=== PATIENT | female | born 1955 | race Caucasian/White ===

== ENCOUNTER 2017-04-24 07:19 | Inpatient (IN) | payer BC ==
[2017-04-24] MEDS ORDERED: NS 0.9% 1000 ML* 2,000 ML IV ONE (07:40)
[2017-04-24] MEDS: Ondansetron INJ* 2 MG/ML VIAL IV SCH ×2 (07:52→11:51)
[2017-04-24 08:16] LABS: Urine Bilirubin Negative (Negative); Urine Glucose 1+(50 mg/dL) (Negative); Urine Nitrite Negative (Negative)
[2017-04-24 08:22] LABS: Albumin 4.1 g/dL (3.2-5.2); BUN/Creatinine Ratio 13.8 (8-20); C Reactive Protein 22.14 mg/L (< 5.00); Calcium 9.4 mg/dL (8.6-10.3); EGFR African American 85.4 (>60); EGFR Non-African American 66.4 (>60); Globulin 3.1 g/dL (2-4); Potassium 3.7 mmol/L (3.5-5.0); Total Bilirubin 0.6 mg/dL (0.2-1.0); Total Protein 7.2 g/dL (6.4-8.9)
[2017-04-24 08:23] LABS: Hematocrit 39 % (35-47); Mean Corpuscular HGB Conc 33 g/dl (31-36); Mean Corpuscular Hemoglobin 33 pg (27-31); Mean Corpuscular Volume 98 fL (80-97); Red Blood Count 3.98 10^6/ul (4.0-5.4); Red Cell Distribution Width 13 % (10.5-15); White Blood Count 9.7 10^3/ul (3.5-10.8)
[2017-04-24] MEDS ORDERED: Ondansetron INJ* 2 MG/ML VIAL IV ONE (08:23)
[2017-04-24 08:24] LABS: Add Diff/Slide Review? Slide Review Added; Comments Flag Yes
[2017-04-24] MEDS ORDERED: Metoclopramide IV* 5 MG/ML 2 ML VIAL IV ONE ×2 (08:52→16:59)
[2017-04-24] MEDS ORDERED: LORazepam INJ* 2 MG/ML 1 ML VIAL IV PUSH ONE (09:42)
[2017-04-24] MEDS ORDERED: PROCHLORPERAZINE INJ 5 MG/ML 2 ML VIAL ONE (09:46)
[2017-04-24] MEDS: PROCHLORPERAZINE INJ 5 MG/ML 2 ML VIAL IV PRN ×2 (09:48→16:06)
--- NOTE | 2017-04-24 11:26 | RAD ---
INDICATION: Nausea, vomiting and diarrhea COMPARISON: There are no prior studies available for comparison. TECHNIQUE: Supine and decubitus views of the abdomen were obtained. FINDINGS: There is a paucity of bowel gas present. The visualized portion of the small bowel and colon appear nondistended. No free intraperitoneal air is seen. IMPRESSION: NO EVIDENCE FOR OBSTRUCTION.
[2017-04-24] MEDS ORDERED: PROCHLORPERAZINE INJ 5 MG/ML 2 ML VIAL IV PRN (12:07)
[2017-04-24] MEDS ORDERED: NS 0.9% 1000 ML* 1,000 ML IV ONE (12:07)
[2017-04-24] MEDS ORDERED: Morphine INJ* 2 MG/ML 1 ML SYRINGE IV PRN (12:37)
--- NOTE | 2017-04-24 14:03 | ED ---
Dora Garcia Auryana, scribed for Phan Chacko MD on 04/24/17 at 0740 . GI/ HPI - HPI Summary HPI Summary: 61 year old female presents with sudden onset of severe nausea, vomiting, and diarrhea starting around midnight last night - 7.5 hours [employer]. Patient reports that last night she had pasta and turkey. She also reports abdominal pain [employer] but denies any now. She denies any fever, chills, chest pain, or any SOB. She denies any significant PMHx. FHx is not significant for DM, HTN, or cardiac disease. SHx is significant for tobacco and alcohol use -daily. - History of Current Complaint Chief Complaint: EDNauseaVomitDiarrh Time Seen by Provider: 04/24/17 07:28 Stated Complaint: VOMITING,DIARRHEA Hx Obtained From: Patient Onset/Duration: Started Hours Ago, Still Present Timing: Constant Severity: Moderate Current Severity: Moderate Pain Intensity: 0 - no abdminal pain now Location of Pain: Diffuse - denies any now Associated Signs and Symptoms: Positive: Nausea, Vomiting, Diarrhea, Abdominal Pain - but none now. Negative: Fever, Chills, Chest Pain - Allergy/Home Medications Allergies/Adverse Reactions: Allergies Allergy/AdvReac Type Severity Reaction Status Date / Time Amoxicillin Allergy Hives Verified 04/24/17 07:28 Home Medications: Home Medications NK [No Home Medications Reported] 04/24/17 [History Confirmed 04/24/17] PMH/Surg Hx/FS Hx/Imm Hx Infectious Disease History: Denies: Traveled Outside the [place] in Last 30 Days - Family History Known Family History: Negative: Cardiac Disease, Hypertension, Diabetes - Social History Lives: With Family - significant other Alcohol Use: Daily Alcohol Amount: beer Hx Substance Use: No Substance Use Type: Reports: None Hx Tobacco Use: Yes Smoking Status (MU): Light Every Day Tobacco Smoker Review of Systems Constitutional: Negative Negative: Fever, Chills Eyes: Negative ENT: Negative Cardiovascular: Negative Negative: Chest Pain Respiratory: Negative Negative: Shortness Of Breath Positive: Abdominal Pain - now resolved, Vomiting, Diarrhea, Nausea Genitourinary: Negative Musculoskeletal: Negative Skin: Negative Neurological: Negative Psychological: Normal All Other Systems Reviewed And Are Negative: Yes Physical Exam - Summary Physical Exam Summary: VITAL SIGNS: Reviewed. GENERAL: Patient is a well-developed and nourished female who is lying comfortable in the stretcher. Patient is not in any acute respiratory distress. HEAD AND FACE: Normocephalic and atraumatic. EYES: PERRLA, EOMI x 2, No injected conjunctiva. EARS: Hearing grossly intact. Ear canals and tympanic membranes are WNL. MOUTH: Oropharynx dry but otherwise within normal limits. NECK: Supple, trachea is midline, no adenopathy, no JVD. CHEST: Symmetric, no tenderness at palpation LUNGS: Clear to auscultation bilaterally. No wheezing or crackles. CVS: RRR, S1 and S2 present, no murmurs or gallops appreciated. ABDOMEN: Soft, non-tender. No signs of distention. Positive bowel sounds. No rebound, no guarding, and no masses palpated. No abdominal bruit or pulsations. EXTREMITIES: FROM in all major joints, no edema, no cyanosis or clubbing. NEURO: Alert and oriented x 3. No acute neurological deficits. Speech is normal. SKIN: Dry and warm Triage Information Reviewed: Yes Vital Signs On Initial Exam: Initial Vitals Temp Pulse Resp BP Pulse Ox 96.8 F 78 18 127/77 100 04/24/17 07:23 04/24/17 07:23 04/24/17 07:23 04/24/17 07:23 04/24/17 07:23 Vital Signs Reviewed: Yes Diagnostics - Vital Signs Vital Signs Temp Pulse Resp BP Pulse Ox 04/24/17 07:23 96.8 F 78 18 127/77 100 - Laboratory Lab Results: Lab Results 04/24/17 04/24/17 04/24/17 Range/Units 07:50 07:50 07:50 WBC 9.7 (3.5-10.8) 10^3/ul RBC 3.98 L (4.0-5.4) 10^6/ul Hgb 13.0 (12.0-16.0) g/dl Hct 39 (35-47) % MCV 98 H (80-97) fL MCH 33 H (27-31) pg MCHC 33 (31-36) g/dl RDW 13 (10.5-15) % Plt Count (150-450) 10^3/ul MPV [employer] Strategist Neut % (Auto) 85.7 H (38-83) % Lymph % (Auto) 9.3 L (25-47) % [place] % (Auto) 4.7 (1-9) % Eos % (Auto) 0 (0-6) % Baso % (Auto) 0.3 (0-2) % Absolute Neuts (auto) 8.3 H (1.5-7.7) 10^3/ul Absolute Lymphs (auto) 0.9 L (1.0-4.8) 10^3/ul Absolute Monos (auto) 0.5 (0-0.8) 10^3/ul Absolute Eos (auto) 0 (0-0.6) 10^3/ul Absolute Basos (auto) 0 (0-0.2) 10^3/ul Absolute Nucleated RBC 0 10^3/ul Nucleated RBC % 0 Sodium 135 (133-145) mmol/L Potassium 3.7 (3.5-5.0) mmol/L Chloride 104 (101-111) mmol/L Carbon Dioxide 21 L (22-32) mmol/L Anion Gap 10 (2-11) mmol/L BUN 12 (6-24) mg/dL Creatinine 0.87 (0.51-0.95) mg/dL Est GFR ( Amer) 85.4 (>60) Est GFR (Non-Af Amer) 66.4 (>60) BUN/Creatinine Ratio 13.8 (8-20) Glucose 184 H (70-100) mg/dL Lactic Acid (0.5-2.0) mmol/L Calcium 9.4 (8.6-10.3) mg/dL Total Bilirubin 0.60 (0.2-1.0) mg/dL AST 18 (13-39) U/L ALT 21 (7-52) U/L Alkaline Phosphatase 81 (34-104) U/L C-Reactive Protein 22.14 H (< 5.00) mg/L Total Protein 7.2 (6.4-8.9) g/dL Albumin 4.1 (3.2-5.2) g/dL Globulin 3.1 (2-4) g/dL Albumin/Globulin Ratio 1.3 (1-3) Amylase 37 (29-103) U/L Lipase 38 (11.0-82.0) U/L Urine Color Yellow Urine Appearance Cloudy Urine pH 7.0 (5-9) Ur Specific [place] 1.017 (1.010-1.030) Urine Protein Negative (Negative) Urine Ketones 1+ H (Negative) Urine Blood Negative (Negative) Urine Nitrate Negative (Negative) Urine Bilirubin Negative (Negative) Urine Urobilinogen Negative (Negative) Ur Leukocyte Esterase Negative (Negative) Urine Glucose 1+(50 mg/dl) H (Negative) 04/24/17 Range/Units 08:10 WBC (3.5-10.8) 10^3/ul RBC (4.0-5.4) 10^6/ul Hgb (12.0-16.0) g/dl Hct (35-47) % MCV (80-97) fL MCH (27-31) pg MCHC (31-36) g/dl RDW (10.5-15) % Plt Count (150-450) 10^3/ul MPV Neut % (Auto) (38-83) % Lymph % (Auto) (25-47) % [place] % (Auto) (1-9) % Eos % (Auto) (0-6) % Baso % (Auto) (0-2) % Absolute Neuts (auto) (1.5-7.7) 10^3/ul Absolute Lymphs (auto) (1.0-4.8) 10^3/ul Absolute Monos (auto) (0-0.8) 10^3/ul Absolute Eos (auto) (0-0.6) 10^3/ul Absolute Basos (auto) (0-0.2) 10^3/ul Absolute Nucleated RBC 10^3/ul Nucleated RBC % Sodium (133-145) mmol/L Potassium (3.5-5.0) mmol/L Chloride (101-111) mmol/L Carbon Dioxide (22-32) mmol/L Anion Gap (2-11) mmol/L BUN (6-24) mg/dL Creatinine (0.51-0.95) mg/dL Est GFR ( Amer) (>60) Est GFR (Non-Af Amer) (>60) BUN/Creatinine Ratio (8-20) Glucose (70-100) mg/dL Lactic Acid 2.1 H* (0.5-2.0) mmol/L Calcium (8.6-10.3) mg/dL Total Bilirubin (0.2-1.0) mg/dL AST (13-39) U/L ALT (7-52) U/L Alkaline Phosphatase (34-104) U/L C-Reactive Protein (< 5.00) mg/L Total Protein (6.4-8.9) g/dL Albumin (3.2-5.2) g/dL Globulin (2-4) g/dL Albumin/Globulin Ratio (1-3) Amylase (29-103) U/L Lipase (11.0-82.0) U/L Urine Color Urine Appearance Urine pH (5-9) Ur Specific [place] (1.010-1.030) Urine Protein (Negative) Urine Ketones (Negative) Urine Blood (Negative) Urine Nitrate (Negative) Urine Bilirubin (Negative) Urine Urobilinogen (Negative) Ur Leukocyte Esterase (Negative) Urine Glucose (Negative) Result Diagrams: 04/24/17 07:50 04/24/17 07:50 Lab Statement: Any lab studies that have been ordered have been reviewed, and results considered in the medical decision making process. - Radiology ABD XR Xray Interpretation: No Acute Changes - NO EVIDENCE FOR OBSTRUCTION Radiology Interpretation Completed By: Radiologist Re-Evaluation - Re-Evaluation First Eval Re-Evaluation Time: 12:06 - DISCUSSED ABDOMINAL XR RESULTS Change: Unchanged - VERY NAUSEATED GIGU Course/Dx - Course Assessment/Plan: 61 year old female presents with sudden onset of severe nausea , vomiting, and diarrhea starting around midnight last night - 7.5 hours [employer]. Patient reports that last night she had pasta and turkey. She also reports abdominal pain [employer]IST but denies any now. She denies any fever, chills, chest pain , or any SOB. She denies any significant PMHx. FHx is not significant for DM, HTN, or cardiac disease. SHx is significant for tobacco and alcohol use -daily. Test results without significant abnormalities except glucose of 184, CRP of 22.1, and lactic acid of 2.1. UA is negative for U.T.I. Abdominal XR shows no evidence for obstruction. In ED course, patient was given 3L IV fluids, 3 doses of Zofran, 10 mg of Reglan and 10 mg of Compazine, and symptoms improved but are still present. Patient is still unable to tolerate anything PO due to the nausea. I did not do an ABD/PEL CT since she did not have any abdominal pain and blood work it is found with out any significant abnormality. I did multiple abdominal exams in the ED and she still does not have any abdominal pain. I discussed the case and findings with Dr. Pearson who accepted the patient for admission. Patient is hemodynamically stable and A&Ox3. - Diagnoses Differential Diagnoses - Female: Constipation, Colitis, Gastroenteritis (Viral) Provider Diagnoses: Nausea & vomiting - Physician Notifications Discussed Care Of Patient With: Marielle Pearson Time Discussed With Above Provider: 12:10 - agrees to admit Discharge - Discharge Plan Condition: Stable Disposition: ADMITTED TO [facility] The documentation as recorded by the Dora carbone Auryana accurately reflects the service I personally performed and the decisions made by , Phan Chacko MD.
[2017-04-24] MEDS: Ondansetron INJ* 2 MG/ML VIAL IV PRN ×2 (14:29→21:01)
[2017-04-24] MEDS: Scopolamine 1.5 mg* PATCH TRANSDERM SCH (15:04)
[2017-04-24] MEDS: Al Hydrox/Mg Hydrox/Simet LIQ* 30 ML UDC PO PRN (17:02)
[2017-04-24] MEDS: LORazepam INJ* 2 MG/ML 1 ML VIAL IV PUSH PRN ×2 (17:20→22:17)
[2017-04-24] MEDS: NS 0.9% 1000 ML* 1,000 ML IV SCH (21:01)
--- NOTE | 2017-04-24 22:48 | HP ---
CC: Sindi Pinto NP from [place] * HISTORY AND PHYSICAL: DATE OF ADMISSION: 04/24/17 PRIMARY CARE PROVIDER: Sindi Pinto from [facility] CHIEF COMPLAINT: Nausea and vomiting. HISTORY OF PRESENT ILLNESS: Florecita Dubose is a 61-year-old female with no specific past medical history who presented to the hospital complaining of nausea and vomiting. The patient stated that last night she started having subumbilical abdominal pain and diarrhea. She had diarrhea overall 3 to 4 times in total. The last bowel movement was at 2 a.m. After that, her abdominal pain resolved and the diarrhea subsided. She started vomiting uncontrollably. She had multiple doses of Zofran in the emergency room and continues to feel nauseated and continues to vomit. She is going to be placed on overnight observation with a diagnosis of intractable nausea and vomiting. PAST MEDICAL HISTORY: History of bilateral nephrectomy. MEDICATIONS: None. ALLERGIES: AMOXICILLIN. FAMILY HISTORY: Positive for mother with Parkinson's and father with bladder cancer. SOCIAL HISTORY: The patient has history of smoking 3 to 5 cigarettes a day and she started when she was a teenager. She drinks approximately 4 beers a day. She denies any drug use. Her surrogate decision maker is her male significant other, James Carrasco. REVIEW OF SYSTEMS: Please see History of Present Illness. In addition, on day of admission, the patient denies any fevers. Denies chest pain, shortness of breath, or chills. She complains still of being nauseated but currently denies abdominal pain apart from the episode that happened last night. Her last bowel movement was at 2 a.m. and it was loose. She stated that she ate deli meat and spaghetti last night. All the remaining systems reviewed with the patient on arrival was negative. PHYSICAL EXAMINATION GENERAL: The patient is a pleasant 61-year-old female who is in no acute distress, alert, awake, and oriented x3. VITAL SIGNS: Blood pressure 125/63, heart rate of 50 and regular, respiratory rate 20, oxygen saturation 97% on room air, temperature of 95.7. HEENT: Head: Atraumatic, normocephalic. Eyes: Pupils are equal, reactive to light and accommodation. Oropharynx clear. Mucosa dry. NECK: Supple. No JVD. No bruits bilaterally. RESPIRATORY: Clear to auscultation bilaterally. CARDIOVASCULAR: Regular rate and rhythm, no murmur. ABDOMEN: Soft and nontender. Bowel sounds are present in all 4 quadrants. EXTREMITIES: There is no edema. Pulses are +2 bilaterally. No clubbing, cyanosis. NEUROLOGIC: Speech clear. Cranial nerves II through XII grossly intact. Motor strength is 5/5 bilaterally. SKIN: On evaluation of the skin, no ecchymotic areas or rashes noted. LABORATORY DATA/DIAGNOSTIC STUDIES: Laboratory data and studies performed in the hospital today included white blood cell count of 9.7, hemoglobin of 13.0, hematocrit of 39, and unfortunately platelets were clumped. Sodium is 135, potassium is 3.7, chloride 104, carbon dioxide 21, BUN 12, creatinine 0.87. Lactic acid 2.1. Liver function tests unremarkable. C- reactive protein is 22. Urinalysis positive for trace ketones. Abdominal x-ray, impression, "no evidence for obstruction." ASSESSMENT AND PLAN: Intractable nausea and vomiting in an otherwise healthy patient. The patient is going to be placed on overnight observation with intravenous fluids. Compazine and Zofran used for as antiemetics. In regards to DVT prophylaxis, the patient is at low risk and ambulation is going to be encouraged. I suspect the cause of the patient's nausea and vomiting is either viral gastroenteritis or food poisoning. Fecal lactoferrin is pending at the time of dictation. TIME SPENT: Approximately 55 minutes was spent on admission of this patient, more than half that time was spent [id number] with the patient doing the interview, physical exam, and counseling. [id number]/[facility] #: [id number] [facility]
[2017-04-25] MEDS: PROCHLORPERAZINE INJ 5 MG/ML 2 ML VIAL IV PRN ×2 (00:50→14:52)
[2017-04-25] MEDS: Ondansetron INJ* 2 MG/ML VIAL IV PRN ×2 (04:18→13:44)
[2017-04-25] MEDS: NS 0.9% 1000 ML* 1,000 ML IV SCH ×3 (05:50→23:53)
[2017-04-25 06:06] LABS: Hematocrit 32 % (35-47); Hemoglobin 10.8 g/dl (12.0-16.0); Mean Corpuscular HGB Conc 34 g/dl (31-36); Mean Corpuscular Hemoglobin 33 pg (27-31); Mean Corpuscular Volume 98 fL (80-97); Mean Platelet Volume 10 um3 (7.4-10.4); Red Blood Count 3.28 10^6/ul (4.0-5.4); Red Cell Distribution Width 13 % (10.5-15); White Blood Count 8.5 10^3/ul (3.5-10.8)
[2017-04-25 06:21] LABS: Calcium 7.9 mg/dL (8.6-10.3); EGFR African American 98.3 (>60); EGFR Non-African American 76.5 (>60); Potassium 3.4 mmol/L (3.5-5.0)
--- NOTE | 2017-04-25 08:42 | RAD ---
INDICATION: Hypoxia. COMPARISON: There are no prior studies available for comparison. TECHNIQUE: Dual-energy PA and lateral views of the chest were obtained. FINDINGS: The heart is within normal limits in size. Mediastinal and hilar contours appear within normal limits. There is a patchy infiltrate present at the right lung base in the right lower lobe. The left lung appears clear. No pleural effusion is seen. IMPRESSION: RIGHT LOWER LOBE INFILTRATE.
[2017-04-25] MEDS: KCL 10 MEQ/50 ML IVPREMIX* 10 MEQ/50 ML BAG IV SCH ×4 (09:21→11:40)
[2017-04-25] MEDS: Clindamycin 600 MG IVPREMIX(* 600 MG/50 ML SDV IV SCH ×2 (09:55→17:09)
--- NOTE | 2017-04-25 13:24 | PN ---
Subjective Date of Service: 04/25/17 Interval History: HOSPITALIST PROGRESS NOTE Patient seen and examined at bedside. She feels better this AM. No further diarrhea, some nausea, but no vomiting so far this AM. Overnight her SO2 dropped and she now requires supplemental O2. Denies chest pain or dyspnea. Sporadic cough. She reports eating past and turkey for dinner on 04/23 around 7:30. Around midnight, started to have diarrhea and then developed recurrent episodes of nausea and vomiting. Symptoms persisted during the day and she decided to come to ED yesterday. Family History: Unchanged from Admission Social History: Unchanged from Admission Past Medical History: Unchanged from Admission Objective Active Medications: Acetaminophen (Tylenol Tab*) 650 mg PO Q4H PRN PRN Reason: FEVER/PAIN Al Hydrox/Mg Hydrox/Simethicone (Maalox Plus*) 30 ml PO Q6H PRN PRN Reason: INDIGESTION Last Admin: 04/24/17 17:02 Dose: 30 ml Sodium Chloride (Ns 0.9% 1000 Ml*) 1,000 mls @ 125 mls/hr IV PER RATE [facility] Last Admin: 04/25/17 05:50 Dose: 125 mls/hr Clindamycin HCl/Dextrose (Cleocin 600 Mg Ivpremix(*) Sdv) 600 mg in 50 mls @ 100 mls/hr IV Q8H [facility] Last Admin: 04/25/17 09:55 Dose: 100 mls/hr Lorazepam (Ativan Inj*) 0.5 mg IV PUSH Q4H PRN PRN Reason: ANXIETY Last Admin: 04/24/17 22:17 Dose: 0.5 mg Morphine Sulfate (Morphine Inj (Syringe)*) 1 mg IV Q4H PRN PRN Reason: PAIN Ondansetron HCl (Zofran Inj*) 4 mg IV Q4H PRN PRN Reason: NAUSEA/VOMITING Last Admin: 04/25/17 04:18 Dose: 4 mg Pharmacy Profile Note (Scopolomine Patch Remove*) 1 note PATCH OFF Q72H [facility] Prochlorperazine Edisylate (Compazine Inj*) 10 mg IV Q6H PRN PRN Reason: NAUSEA/VOMITING Last Admin: 04/25/17 00:50 Dose: 10 mg Scopolamine (Transderm-Scop 1.5 Mg Patch*) 1 patch TRANSDERM Q72H [facility] Last Admin: 04/24/17 15:04 Dose: 1 patch Vital Signs 04/25/17 04/25/17 09:30 11:52 Temperature 98.3 F Pulse Rate 43 Respiratory 16 20 Rate Blood Pressure 124/56 (mmHg) O2 Sat by Pulse 91 Oximetry Oxygen Devices in Use Now: Nasal Cannula - 5 liters Appearance: Pleasant lady lying in bed in NAD. Eyes: No Scleral Icterus Ears/Nose/Mouth/Throat: Mucous Membranes Moist Neck: Trachea Midline Respiratory: Symmetrical Chest Expansion and Respiratory Effort, - - BS+ bilaterally with crackles on right base Cardiovascular: NL Sounds; No Murmurs; No JVD, RRR Abdominal: NL Sounds; No Tenderness; No Distention Extremities: No Edema Neurological: Alert and Oriented x 3, NL Muscle Strength and Tone Lines/Tubes/Other Access: Clean, Dry and Intact Peripheral IV Nutrition: Taking PO's Result Diagrams: 04/25/17 05:27 04/25/17 05:27 Assess/Plan/Problems-Billing Assessment: Mrs. Dubose is a 61yo F with h/o bilateral ovarian cysts surgeries (no h/o renal surgeries), who presented to ED with N/V/D, found to have gastroenteritis vs food poisoning. - Patient Problems (1) Food poisoning Comment: - The timing of her symptoms suggests food poisoning. - GI symptoms are resolving. - Advance diet as tolerated. - Continue IVF. (2) Aspiration pneumonia Comment: - Suspect patient likely aspirated due to recurrent vomiting, new RLL infiltrate, and hypoxia. - Had significant rash with amoxicillin in the past - will start Clindamycin. (3) Acute hypoxemic respiratory failure Comment: - Secondary to aspiration pneumonia. - Continue supplemental O2. (4) DVT prophylaxis Comment: - SQ heparin. (5) Full code status Status and Disposition: Change to inpatient.
[2017-04-25] MEDS: Heparin VIAL(*) 5000 UNITS/ML VIAL (FIVE THOUSAND) SUBCUT SCH ×2 (14:18→22:07)
[2017-04-25] MEDS: Al Hydrox/Mg Hydrox/Simet LIQ* 30 ML UDC PO PRN (15:30)
[2017-04-25] MEDS: LORazepam INJ* 2 MG/ML 1 ML VIAL IV PUSH PRN (22:28)
[2017-04-26] MEDS: Clindamycin 600 MG IVPREMIX(* 600 MG/50 ML SDV IV SCH ×3 (01:22→16:18)
[2017-04-26] MEDS: Acetaminophen TAB* 325 MG PO PRN ×2 (04:27→14:15)
[2017-04-26] MEDS: Heparin VIAL(*) 5000 UNITS/ML VIAL (FIVE THOUSAND) SUBCUT SCH ×3 (06:43→20:42)
[2017-04-26 07:01] LABS: Hematocrit 33 % (35-47); Hemoglobin 11.3 g/dl (12.0-16.0); Mean Corpuscular HGB Conc 34 g/dl (31-36); Mean Corpuscular Hemoglobin 33 pg (27-31); Mean Corpuscular Volume 97 fL (80-97); Mean Platelet Volume 10 um3 (7.4-10.4); Red Cell Distribution Width 13 % (10.5-15); White Blood Count 10.6 10^3/ul (3.5-10.8)
[2017-04-26 07:16] LABS: BUN/Creatinine Ratio 12.8 (8-20); Calcium 7.9 mg/dL (8.6-10.3); EGFR African American 96.9 (>60); EGFR Non-African American 75.3 (>60); Potassium 3.5 mmol/L (3.5-5.0)
[2017-04-26] MEDS ORDERED: DOXYcycline IV* 100 MG in NS 0.9% 250 ML* 250 ML IVPB SCH (09:00)
--- NOTE | 2017-04-26 13:21 | PN ---
Subjective Date of Service: 04/26/17 Interval History: HOSPITALIST PROGRESS NOTE Patient seen and examined at bedside. She feels better today, and despite requiring more oxygen, she does not feels more dyspneic. N/V much improved, tolerated full liquids well. No further diarrhea. Family History: Unchanged from Admission Social History: Unchanged from Admission Past Medical History: Unchanged from Admission Objective Active Medications: Acetaminophen (Tylenol Tab*) 650 mg PO Q4H PRN PRN Reason: FEVER/PAIN Last Admin: 04/26/17 04:27 Dose: 650 mg Al Hydrox/Mg Hydrox/Simethicone (Maalox Plus*) 30 ml PO Q6H PRN PRN Reason: INDIGESTION Last Admin: 04/25/17 15:30 Dose: 30 ml Heparin Sodium (Porcine) (Heparin Vial(*)) 5,000 units SUBCUT Q8HR [facility] Last Admin: 04/26/17 06:43 Dose: 5,000 units Clindamycin HCl/Dextrose (Cleocin 600 Mg Ivpremix(*) Sdv) 600 mg in 50 mls @ 100 mls/hr IV Q8H [facility] Last Admin: 04/26/17 08:06 Dose: 100 mls/hr Levofloxacin/Dextrose (Levaquin 750 Mg Ivpremix(*)) 750 mg in 150 mls @ 100 mls /hr IVPB Q24H [facility] Lorazepam (Ativan Inj*) 0.5 mg IV PUSH Q4H PRN PRN Reason: ANXIETY Last Admin: 04/25/17 22:28 Dose: 0.5 mg Morphine Sulfate (Morphine Inj (Syringe)*) 1 mg IV Q4H PRN PRN Reason: PAIN Pharmacy Profile Note (Scopolomine Patch Remove*) 1 note PATCH OFF Q72H [facility] Prochlorperazine Edisylate (Compazine Inj*) 10 mg IV Q6H PRN PRN Reason: NAUSEA/VOMITING Last Admin: 04/25/17 14:52 Dose: 10 mg Scopolamine (Transderm-Scop 1.5 Mg Patch*) 1 patch TRANSDERM Q72H [facility] Last Admin: 04/24/17 15:04 Dose: 1 patch Vital Signs 04/26/17 04/26/17 04/26/17 08:00 08:12 11:34 Temperature 99.2 F Pulse Rate 63 Respiratory 16 16 Rate Blood Pressure 129/66 (mmHg) O2 Sat by Pulse 92 95 Oximetry Oxygen Devices in Use Now: Nasal Cannula - 7 liters Appearance: Pleasant lady lying in bed in NAD. Eyes: No Scleral Icterus Ears/Nose/Mouth/Throat: Mucous Membranes Moist Neck: Trachea Midline Respiratory: Symmetrical Chest Expansion and Respiratory Effort, - - BS+ bilaterally with bibasilar rales R>L Cardiovascular: RRR - Normal S1 and S2 Abdominal: NL Sounds; No Tenderness; No Distention Extremities: No Edema Neurological: Alert and Oriented x 3, NL Muscle Strength and Tone Lines/Tubes/Other Access: Clean, Dry and Intact Peripheral IV Nutrition: Taking PO's Result Diagrams: 04/26/17 06:33 04/26/17 06:33 Assess/Plan/Problems-Billing Assessment: Mrs. Dubose is a 61yo F with h/o bilateral ovarian cysts surgeries (no h/o renal surgeries), who presented to ED with N/V/D, found to have gastroenteritis vs food poisoning. - Patient Problems (1) Food poisoning Comment: - The timing of her symptoms suggests food poisoning. - GI symptoms resolved. - Advance to regular diet. - D/c IVF. (2) Aspiration pneumonia Comment: - Suspect patient likely aspirated due to recurrent vomiting, new RLL infiltrate, and hypoxia. - Had significant rash with amoxicillin in the past - continue Clindamycin and add Levofloxacin to cover CAP. (3) Acute hypoxemic respiratory failure Comment: - Secondary to aspiration pneumonia. - Continue supplemental O2. (4) DVT prophylaxis Comment: - SQ heparin. (5) Full code status Status and Disposition: Inpatient.
[2017-04-26] MEDS: Levofloxacin 750 MG IVPREMIX(* 750 MG/150 ML BAG IVPB SCH (14:09)
[2017-04-26] MEDS: Al Hydrox/Mg Hydrox/Simet LIQ* 30 ML UDC PO PRN ×2 (16:17→20:28)
[2017-04-27] MEDS: Clindamycin 600 MG IVPREMIX(* 600 MG/50 ML SDV IV SCH ×3 (00:54→16:51)
[2017-04-27] MEDS: Heparin VIAL(*) 5000 UNITS/ML VIAL (FIVE THOUSAND) SUBCUT SCH ×3 (07:36→21:50)
--- NOTE | 2017-04-27 08:25 | RAD ---
INDICATION: Hypoxia COMPARISON: Similar chest x-ray dated April 25, 2017 TECHNIQUE: PA and lateral views of the chest were obtained. FINDINGS: The heart and mediastinum are normal in size and contour. There is density obscuring the right lung base, diaphragm and causing costophrenic angle blunting. To a lesser extent similar costophrenic angle blunting is seen at the left lung base. The pulmonary vasculature is indistinct and mildly engorged. Visualized bones are normal for the patient's age. There is no radiographic evidence of free air beneath the diaphragm IMPRESSION: CHEST X-RAY FINDINGS ARE MOST CONSISTENT WITH PULMONARY EDEMA WITH RIGHT GREATER THAN LEFT BILATERAL PLEURAL EFFUSIONS.
[2017-04-27] MEDS: Al Hydrox/Mg Hydrox/Simet LIQ* 30 ML UDC PO PRN ×2 (09:49→19:04)
[2017-04-27] MEDS ORDERED: Furosemide IV* 10 MG/ML 2 ML VIAL (20 MG) IV ONE (10:12)
--- NOTE | 2017-04-27 12:47 | PN ---
Subjective Date of Service: 04/27/17 Interval History: HOSPITALIST PROGRESS NOTE Patient seen and examined at bedside. She feels well when sitting up, but feels dyspneic when lying flat, and has more cough on that position. Dyspnea with exertion is less intense and she was able to ambulate to the bathroom. Family History: Unchanged from Admission Social History: Unchanged from Admission Past Medical History: Unchanged from Admission Objective Active Medications: Acetaminophen (Tylenol Tab*) 650 mg PO Q4H PRN PRN Reason: FEVER/PAIN Last Admin: 04/26/17 14:15 Dose: 650 mg Al Hydrox/Mg Hydrox/Simethicone (Maalox Plus*) 30 ml PO Q6H PRN PRN Reason: INDIGESTION Last Admin: 04/27/17 09:49 Dose: 30 ml Heparin Sodium (Porcine) (Heparin Vial(*)) 5,000 units SUBCUT Q8HR [facility] Last Admin: 04/27/17 07:36 Dose: Not Given Clindamycin HCl/Dextrose (Cleocin 600 Mg Ivpremix(*) Sdv) 600 mg in 50 mls @ 100 mls/hr IV Q8H [facility] Last Admin: 04/27/17 07:54 Dose: 100 mls/hr Levofloxacin/Dextrose (Levaquin 750 Mg Ivpremix(*)) 750 mg in 150 mls @ 100 mls /hr IVPB Q24H [facility] Last Admin: 04/26/17 14:09 Dose: 100 mls/hr Lorazepam (Ativan Inj*) 0.5 mg IV PUSH Q4H PRN PRN Reason: ANXIETY Last Admin: 04/25/17 22:28 Dose: 0.5 mg Morphine Sulfate (Morphine Inj (Syringe)*) 1 mg IV Q4H PRN PRN Reason: PAIN Pharmacy Profile Note (Scopolomine Patch Remove*) 1 note PATCH OFF Q72H AMBER Prochlorperazine Edisylate (Compazine Inj*) 10 mg IV Q6H PRN PRN Reason: NAUSEA/VOMITING Last Admin: 04/25/17 14:52 Dose: 10 mg Scopolamine (Transderm-Scop 1.5 Mg Patch*) 1 patch TRANSDERM Q72H [facility] Last Admin: 04/24/17 15:04 Dose: 1 patch Vital Signs 04/27/17 04/27/17 04/27/17 08:10 09:18 11:25 Temperature 98.8 F Pulse Rate 49 Respiratory 16 17 Rate Blood Pressure 135/71 (mmHg) O2 Sat by Pulse 92 96 Oximetry Oxygen Devices in Use Now: Nasal Cannula - 6 liters Appearance: Pleasant lady sitting up in bed in NAD. Eyes: No Scleral Icterus Ears/Nose/Mouth/Throat: Mucous Membranes Moist Neck: Trachea Midline Respiratory: Symmetrical Chest Expansion and Respiratory Effort, - - BS+ bilaterally, decreased right base, with bilateral crackles to mid lung mckeon Cardiovascular: NL Sounds; No Murmurs; No JVD, RRR Abdominal: NL Sounds; No Tenderness; No Distention Extremities: No Edema Neurological: Alert and Oriented x 3, NL Muscle Strength and Tone Lines/Tubes/Other Access: Clean, Dry and Intact Peripheral IV Nutrition: Taking PO's Result Diagrams: 04/26/17 06:33 04/26/17 06:33 Assess/Plan/Problems-Billing Assessment: Mrs. Dubose is a 61yo F with h/o bilateral ovarian cysts surgeries (no h/o renal surgeries), who presented to ED with N/V/D, found to have gastroenteritis vs food poisoning. - Patient Problems (1) Food poisoning Comment: - The timing of her symptoms suggests food poisoning. - GI symptoms resolved. - Advance to regular diet. (2) Aspiration pneumonia Comment: - Suspect patient likely aspirated due to recurrent vomiting, new RLL infiltrate, and hypoxia. - Had significant rash with amoxicillin in the past - continue Clindamycin and Levofloxacin. (3) Acute hypoxemic respiratory failure Comment: - Secondary to aspiration pneumonia. - Continue supplemental O2. (4) Fluid overload Comment: - CxR shows vascular congestion. - She received IV hydration on admission and this could be secondary to fluid overload. - Diurese with Furosemide. - Check echo. (5) DVT prophylaxis Comment: - SQ heparin. (6) Full code status Status and Disposition: Inpatient. updated at bedside.
[2017-04-27] MEDS: Scopolamine 1.5 mg* PATCH TRANSDERM SCH (14:35)
[2017-04-27] MEDS: Levofloxacin 750 MG IVPREMIX(* 750 MG/150 ML BAG IVPB SCH (14:52)
[2017-04-27] MEDS ORDERED: Scopolomine PATCH Remove* 1 NOTE MISC PATCH OFF SCH (15:00)
--- NOTE | 2017-04-27 15:51 | ECHO ---
Patient: SAMY ALBA [facility] Rec#: [id number] : 1955 Date: 04/27/2017 Age: 61y Height: 175.26 cm / 69.0 in Weight: 61.23 kg / 135.0 lbs Sex: F BSA: 1.75 Room#: 401 Admit Date#: 04/25/2017 Type: Inpatient Referring: Magda Mark MD Reading: Geovanny Rodriguez MD Hospital Medical [facility] Indication: Shortness of breath BP: 126/71 HR: 45 Rhythm: Bradycardia Findings History: ETOH use, smoker. Technical Comments: The study is technically limited due to poor apical windows. The study is technically limited due to the patient's smoking history. Completed at 1435. Left Ventricle: The left ventricular chamber size is normal. There is no left ventricular hypertrophy. Global left ventricular wall motion and contractility are within normal limits. There is normal left ventricular systolic function. The estimated ejection fraction is 55-60%. Normal left ventricular diastolic filling is observed. Left Atrium: The left atrium is mildly dilated. Right Ventricle: Moderator Band present. The right ventricular cavity size is normal. The right ventricular global systolic function is normal. Right Atrium: The right atrium is mildly dilated. Aortic Valve: The aortic valve is trileaflet. The aortic valve leaflets are mildly thickened. There is a trace of aortic regurgitation. There is no evidence of aortic stenosis. Mitral Valve: There is mitral annular calcification. The mitral valve leaflets are mildly thickened. There is mild mitral regurgitation. There is no evidence of mitral stenosis. Tricuspid Valve: The tricuspid valve leaflets are normal. There is mild tricuspid regurgitation. The right ventricular systolic pressure is estimated at 36 mmHg. There is evidence of mild pulmonary hypertension. There is no tricuspid stenosis. Pulmonic Valve: The pulmonic valve appears normal. There is mild to moderate pulmonic regurgitation. There is no pulmonic stenosis. Pericardium: A trivial pericardial effusion is visualized. There are no signs of significant hemodynamic compromise. A bilateral pleural effusion is present. Aorta: There is no dilatation of the ascending aorta. There is no dilatation of the aortic arch. There is no dilation of the aortic root. Pulmonary Artery: The main pulmonary artery appears normal. Venous: The inferior vena cava is dilated. There is an approximate 50% respiratory change in the inferior vena cava dimension. Conclusions Global left ventricular wall motion and contractility are within normal limits. There is normal left ventricular systolic function. The estimated ejection fraction is 55-60%. Normal left ventricular diastolic filling is observed. There is mild mitral regurgitation. The left atrium is mildly dilated. The right atrium is mildly dilated. There is mild tricuspid regurgitation. There is evidence of mild pulmonary hypertension. There is a trace of aortic regurgitation. There is mild to moderate pulmonic regurgitation. A bilateral pleural effusion is present. No report of prior studies are offered for comparison. Measurements Name Value Normal Range RVIDd (AP) 2D 2.4 cm (0.9 - 2.6) RVDdMajor (2D) 4 cm (2.2 - 4.4) RAd ISD 4CH 5.5 cm (3.4 - 4.9) RA (A4C)W 4.5 cm (2.9 - 4.6) IVSd (2D) 0.7 cm (0.6 - 1) LVPWd (2D) 0.8 cm (0.6 - 1) LVIDd (2D) 4.8 cm (3.6 - 5.4) LVIDs (2D) 3.3 cm - LV FS (2D) 31 % (25 - 45) EF Teichholz (2D) 59 % - Aortic Annulus 1.7 cm (1.4 - 2.6) Ao root diameter (2D) 2.9 cm (2.1 - 3.5) Ascending Ao 2.9 cm (2.1 - 3.4) Aortic arch 3 cm (1.8 - 3.4) LA dimension (AP) 2D 3.6 cm (2.3 - 3.8) LAd ISD 4CH 6.4 cm (2.9 - 5.3) LA ISD 4CH W 4.5 cm (2.5 - 4.5) Name Value Normal Range LA ESV SP 4CH (A/L) 81 ml - LA ESV SP 2CH (A/L) 74 ml - LA ESV BP (A/L) 83 ml - LA ESV BP (A/L) index 47.25 ml/m2 - LA ESV SP 4CH (MOD) 74 ml - LA ESV SP 2CH (MOD) 68 ml - Name Value Normal Range MV E-wave Vmax 1 m/sec - MV deceleration time 301.8 msec - MV A-wave Vmax 0.66 m/sec - MV E:A ratio 1.57 ratio - LV septal e' Vmax 0.09 m/sec - LV lateral e' Vmax 0.13 m/sec - LV E:e' septal ratio 11.11 ratio - LV E:e' lateral ratio 7.69 ratio - Name Value Normal Range AV Vmax 1.9 m/sec - AV VTI 40.6 cm - AV peak gradient 15.15 mmHg - AV mean gradient 6.22 mmHg - LVOT Vmax 1.5 m/sec - LVOT VTI 32.45 cm - LVOT peak gradient 9.08 mmHg - LVOT mean gradient 4.64 mmHg - TE Vmax 1.2 m/sec - Name Value Normal Range TR Vmax 2.3 m/sec - TR peak gradient 21 mmHg - RAP 15 mmHg - RVSP 36 mmHg - IVC diameter 2.1 cm - Name Value Normal Range PV Vmax 1 m/sec - PV peak gradient 4.1 mmHg - MO end-diastolic Vmax 0.95 m/sec -
[2017-04-27] MEDS: Simethicone CHEW TAB* 80 MG PO PRN (21:49)
[2017-04-27] MEDS: LORazepam INJ* 2 MG/ML 1 ML VIAL IV PUSH PRN (22:59)
[2017-04-28] MEDS: Clindamycin 600 MG IVPREMIX(* 600 MG/50 ML SDV IV SCH ×2 (01:40→08:45)
[2017-04-28] MEDS ORDERED: Omeprazole CAP* 20 MG PO SCH (06:00)
[2017-04-28] MEDS: Heparin VIAL(*) 5000 UNITS/ML VIAL (FIVE THOUSAND) SUBCUT SCH (06:16)
[2017-04-28] MEDS: Simethicone CHEW TAB* 80 MG PO PRN (09:43)
[2017-04-28 09:49] VITALS: BP 137/70
--- NOTE | 2017-04-29 02:26 | DS ---
CC: Sindi Pinto NP; Dr. Jovani Patel; Dr. Ger Burciaga; Dr. Simmons. Edwin Moon, [facility], [place], phone #[phone] * DISCHARGE SUMMARY: DATE OF ADMISSION: 04/24/17 DATE OF DISCHARGE: 04/28/17 DISCHARGE DIAGNOSES: 1. Food poisoning. 2. Aspiration pneumonia versus community-acquired pneumonia. 3. Acute hypoxemic respiratory failure. 4. Fluid overload. 5. Mild hypokalemia. SECONDARY DIAGNOSES: 1. Tobacco abuse. 2. History of bilateral ovarian cyst surgery. MEDICATION LIST: 1. Acetaminophen 650 mg p.o. q.6 hours p.r.n. pain or fever. 2. Clindamycin 300 mg p.o. q.8 hours for five more days. 3. Culturelle one capsule p.o. b.i.d. 4. Levaquin 750 mg p.o. daily for five more days. 5. Nicotine inhaler 10 mg inhaled q.2 hours as needed for cravings. 6. Nicotine patch 40 mg topical daily, remove at bedtime. 7. Omeprazole 20 mg p.o. daily at 6 am. 8. Simethicone chewable tablet 80 mg p.o. t.i.d. as needed for indigestion/gas. HOSPITAL COURSE: Ms. Dubose is a 61-year-old lady with a past medical history as stated above that presented to the emergency room with complaints of severe nausea and vomiting. She stated that the night prior to admission she had pasta with turkey and around midnight she woke up with diarrhea and this was followed by multiple episodes of nausea and uncontrollable vomiting. For more details about her presentation, I refer you to her history and physical. The patient was admitted for symptom management and further hydration. In the emergency room, she had abdomen x-rays that showed no evidence for obstruction. The next day, the patient was found to have dyspnea and she desaturated requiring 5 L of supplemental oxygen. A chest x-ray was performed and it showed a right lower lobe infiltrate. The concern was the patient could have aspirated considering her multiple episodes of uncontrollable vomiting, but the infiltrate developed quickly and this could suggest that this was present prior to her admission and may be could even be the source of her nausea and vomiting as the patient could have community-acquired pneumonia with GI symptoms. The patient is allergic to PENICILLINS and states she had a severe rash when she took AMOXICILLIN in the past. For that reason, we decided not to give her penicillins or cephalosporins. She was started on clindamycin to cover for possible aspiration and levofloxacin to cover community-acquired pneumonia. Legionella and pneumococcal antigens were negative. The patient developed fever up to 101.1 while in the hospital and she continued to require supplemental oxygen up to 7 L. A repeat chest x-ray suggested vascular congestion. The impression was the patient likely had fluid overload from the aggressive IV fluid resuscitation she received initially. A transthoracic echocardiogram was performed and showed global left ventricular wall motion and contractility within normal limits, with normal left ventricular systolic function with ejection fraction of 55% to 60%. There is mild mitral regurgitation, mild tricuspid regurgitation, mild pulmonary hypertension, trace of aortic regurgitation, [id number] pulmonic regurgitation. The patient received one dose of furosemide 20 mg IV with significant diuresis and improvement of her respiratory status. Today, she feels much improved and she does not require supplemental oxygen to maintain oxygen saturation greater than 90%. She is afebrile. Her nausea and vomiting have resolved and she was thought to be stable for discharge. The patient was concerned about the possibility of side effects with clindamycin and levofloxacin. We discussed the side effects including but not limited to risk for C. diff with both antibiotics and risk for tendon rupture with levofloxacin, but we also reviewed that the benefits of treating the infection are greater than the risk and that her allergy limits some of the options we could use. She was advised about side effects and educated about what symptoms would prompt her return to the emergency room and to call her primary care provider. The patient is a smoker, and she receives tobacco cessation education. She states that she has been without a cigarette for five days and she thinks she will be able to continue at home. She received prescription for nicotine supplementation to assist on her endeavors. The patient is medically stable to be discharged home today and she will follow up with Dr. Burciaga as outpatient. PHYSICAL EXAMINATION: Vital Signs: Temperature 98.3, heart rate 50, respiratory rate 16, oxygen saturation 96% on room air, blood pressure 137/70. General: The patient is a pleasant lady sitting up in bed in no acute distress. CVS: Normal S1 and S2. Regular rate and rhythm. Chest: Breath sounds present bilaterally with crackles on the right base but no other added sounds. Abdomen is soft. Bowel sounds are present. Extremities: No edema. Neuro: She is alert and oriented x3. Able to move all 4 extremities. DIET: Regular diet. The patient was advised to avoid lactose. ACTIVITY: As tolerated. She was advised to avoid excessive exertion. She was also told that she should follow up with her primary care before she starts running again. DISPOSITION: To home. STATUS WHILE IN THE HOSPITAL: Inpatient. Please keep in mind that this is a summarized version of this patient's hospital stay. If you need more information, please feel free to call me at or please obtain the full medical records. TIME SPENT: Approximately 45 minutes was spent to complete this discharge. [id number]/[facility] #: [id number] [place]
== END 2017-04-28 11:50 | disposition home or self-care (01) | DRG 816 ==
LOC: ED 07:19 → MED 12:11 → OBSVTOIN 04-25 09:23
PROVIDERS: ADMIT Internal Medicine; ATTEND Internal Medicine
DX: T62.8X1A Toxic effect of other specified noxious substances eaten as food, accidental (unintentional), initial encounter (principal); J69.0 Pneumonitis due to inhalation of food and vomit; J96.01 Acute respiratory failure with hypoxia; J18.9 Pneumonia, unspecified organism; F17.210 Nicotine dependence, cigarettes, uncomplicated; E87.70 Fluid overload, unspecified; R11.2 Nausea with vomiting, unspecified; Y92.9 Unspecified place or not applicable; E87.6 Hypokalemia; I27.2 Other secondary pulmonary hypertension; I08.3 Combined rheumatic disorders of mitral, aortic and tricuspid valves; Z88.1 Allergy status to other antibiotic agents; Z72.89 Other problems related to lifestyle; Z80.52 Family history of malignant neoplasm of bladder; Z84.89 Family history of other specified conditions
CPT/HCPCS: 36415; 71020; 74020; 80048; 80053; 81003; 82150; 83605; 83690; 85025; 86140; 87899; 93005; 93306; 94760; 99406; A9270-GY; G0378; J0780; J1644; J1940; J2060; J2405; J3480

== ENCOUNTER 2017-10-11 19:08 | Emergency (ER) | payer BC ==
[2017-10-11 19:23] VITALS: BP 134/89
[2017-10-11 20:36] LABS: ABS Basophils 0 10^3/ul (0-0.2); ABS Eosinophils 0 10^3/ul (0-0.6); ABS Lymphocytes 0.8 10^3/ul (1.0-4.8); ABS Monocytes 0.1 10^3/ul (0-0.8); ABS Neutrophils 6.7 10^3/ul (1.5-7.7); ABS Nucleated RBC 0 10^3/ul; Eosinophil % 0.1 % (0-6); Hematocrit 41 % (35-47); Hemoglobin 14.1 g/dl (12.0-16.0); Lymphocyte % 10.1 % (25-47); Mean Corpuscular HGB Conc 34 g/dl (31-36); Mean Corpuscular Hemoglobin 32 pg (27-31); Mean Corpuscular Volume 92 fL (80-97); Mean Platelet Volume 8 um3 (7.4-10.4); Nucleated Red Blood Cells % 0; Platelet Count 272 10^3/ul (150-450); Red Blood Count 4.46 10^6/ul (4.0-5.4); Red Cell Distribution Width 12 % (10.5-15); White Blood Count 7.6 10^3/ul (3.5-10.8)
[2017-10-11 20:49] LABS: EGFR Non-African American 66.2 (>60)
[2017-10-11] MEDS ORDERED: Metoclopramide IV* 5 MG/ML 2 ML VIAL IV ONE (21:02)
[2017-10-11] MEDS ORDERED: NS 0.9% 1000 ML* 2,000 ML IV ONE (21:02)
[2017-10-11] MEDS ORDERED: LORazepam INJ* 2 MG/ML 1 ML VIAL IV PUSH ONE (21:55)
[2017-10-11] MEDS ORDERED: Ondansetron INJ* 2 MG/ML VIAL IV ONE (21:55)
--- NOTE | 2017-10-11 23:04 | ED ---
GI/ HPI - HPI Summary HPI Summary: 62F presents with vomiting today. It started at 2am this morning. She has had nausea, vomiting, and diarrhea. She admits to generalized abdominal pain. She denies any fever or recent illness. no one else is sick. She did not eat anything different. She states last time she had this she was admitted and developed aspiration pneumonia. She was seen at her primary and given zofran and pheregen. She is not diabetic. She denies any dysuria. She denies any flank pain. - History of Current Complaint Chief Complaint: EDNauseaVomitDiarrh Time Seen by Provider: 10/11/17 21:02 Stated Complaint: VOMITING Pain Intensity: 5 - Additional Pertinent History Primary Care Physician: ANDREW - Allergy/Home Medications Allergies/Adverse Reactions: Allergies Allergy/AdvReac Type Severity Reaction Status Date / Time Amoxicillin Allergy Hives Verified 04/24/17 07:28 PMH/Surg Hx/FS Hx/Imm Hx Endocrine/Hematology History: Denies: Hx Anticoagulant Therapy Cardiovascular History: Denies: Hx Myocardial Infarction Sensory History: Reports: Hx Contacts or Glasses Denies: Hx Hearing Aid Opthamlomology History: Reports: Hx Contacts or Glasses Infectious Disease History: No Infectious Disease History: Denies: Traveled Outside the [place] in Last 30 Days - Family History Known Family History: Negative: Cardiac Disease, Hypertension, Diabetes - Social History Alcohol Use: Occasionally Alcohol Amount: beer Hx Substance Use: No Substance Use Type: Reports: None Hx Tobacco Use: Yes Smoking Status (MU): Light Every Day Tobacco Smoker Review of Systems Negative: Fever Negative: Chest Pain Negative: Shortness Of Breath Positive: Abdominal Pain, Vomiting, Diarrhea, Nausea All Other Systems Reviewed And Are Negative: Yes Physical Exam Triage Information Reviewed: Yes Vital Signs On Initial Exam: Initial Vitals Temp Pulse Resp BP Pulse Ox 98.7 F 81 18 134/89 100 10/11/17 19:19 10/11/17 19:19 10/11/17 19:19 10/11/17 19:19 10/11/17 19:19 Vital Signs Reviewed: Yes Appearance: Positive: Well-Appearing Skin: Positive: Warm, Dry Head/Face: Positive: Normal Head/Face Inspection Eyes: Positive: Normal, EOMI, GASTON, Conjunctiva Clear ENT: Positive: Normal ENT inspection, Pharynx normal, TMs normal Respiratory/Lung Sounds: Positive: Clear to Auscultation, Breath Sounds Present Cardiovascular: Positive: Normal, RRR Abdomen Description: Positive: Nontender, Soft Bowel Sounds: Positive: Present Musculoskeletal: Positive: Normal Neurological: Positive: Normal Psychiatric: Positive: Normal - Babatunde Coma Scale Coma Scale Total: 15 Diagnostics - Vital Signs Vital Signs Temp Pulse Resp BP Pulse Ox 10/11/17 22:24 16 10/11/17 19:19 98.7 F 81 18 134/89 100 - Laboratory Lab Results: Lab Results 10/11/17 10/11/17 Range/Units 20:25 20:25 WBC 7.6 (3.5-10.8) 10^3/ul RBC 4.46 (4.0-5.4) 10^6/ul Hgb 14.1 (12.0-16.0) g/dl Hct 41 (35-47) % MCV 92 (80-97) fL MCH 32 H (27-31) pg MCHC 34 (31-36) g/dl RDW 12 (10.5-15) % Plt Count 272 (150-450) 10^3/ul MPV 8 (7.4-10.4) um3 Neut % (Auto) 87.9 H (38-83) % Lymph % (Auto) 10.1 L (25-47) % Lander % (Auto) 1.8 (1-9) % Eos % (Auto) 0.1 (0-6) % Baso % (Auto) 0.1 (0-2) % Absolute Neuts (auto) 6.7 (1.5-7.7) 10^3/ul Absolute Lymphs (auto) 0.8 L (1.0-4.8) 10^3/ul Absolute Monos (auto) 0.1 (0-0.8) 10^3/ul Absolute Eos (auto) 0 (0-0.6) 10^3/ul Absolute Basos (auto) 0 (0-0.2) 10^3/ul Absolute Nucleated RBC 0 10^3/ul Nucleated RBC % 0 Sodium 135 (133-145) mmol/L Potassium 3.9 (3.5-5.0) mmol/L Chloride 101 (101-111) mmol/L Carbon Dioxide 25 (22-32) mmol/L Anion Gap 9 (2-11) mmol/L BUN 11 (6-24) mg/dL Creatinine 0.87 (0.51-0.95) mg/dL Est GFR ( Amer) 85.1 (>60) Est GFR (Non-Af Amer) 66.2 (>60) BUN/Creatinine Ratio 12.6 (8-20) Glucose 154 H (70-100) mg/dL Calcium 9.4 (8.6-10.3) mg/dL Magnesium 1.8 L (1.9-2.7) mg/dL Total Bilirubin 0.40 (0.2-1.0) mg/dL AST 21 (13-39) U/L ALT 23 (7-52) U/L Alkaline Phosphatase 71 (34-104) U/L C-React Prot High Sens 2.04 mg/L Total Protein 7.5 (6.4-8.9) g/dL Albumin 4.4 (3.2-5.2) g/dL Globulin 3.1 (2-4) g/dL Albumin/Globulin Ratio 1.4 (1-3) Lipase 61 (11.0-82.0) U/L Result Diagrams: 10/11/17 20:25 10/11/17 20:25 Lab Statement: Any lab studies that have been ordered have been reviewed, and results considered in the medical decision making process. Re-Evaluation - Re-Evaluation First Eval Change: Improved Comment: still a little nauseous so will give zofran and ativan. GIGU Course/Dx - Course Course Of Treatment: 62F presents with vomiting today. It started at 2am this morning. She has had nausea, vomiting, and diarrhea. She admits to generalized abdominal pain. She denies any fever or recent illness. no one else is sick. She did not eat anything different. She states last time she had this she was admitted and developed aspiration pneumonia. She was seen at her primary and given zofran and pheregen. She is not diabetic. She denies any dysuria. She denies any flank pain. on exam abdomen nontender. gave fluids, zofran, ativan and reglan and nausea resolved. labs normal. will discharge with zofran which patient has. patient understand and agrees with plan. - Diagnoses Differential Diagnoses - Female: Gastroenteritis (Viral), Gastroenteritis ( Bacterial), Urinary Tract Infection Provider Diagnoses: Vomiting Discharge - Discharge Plan Condition: Good Disposition: HOME Patient Education Materials: Acute Nausea and Vomiting (ED) Referrals: Sarai SANCHEZ,Troy Pineda [Primary Care Provider] - Additional Instructions: Take up to two tablets of zofran every 6 hours for nausea or vomiting Drink small amounts of fluid as tolerated When able to eat follow BRAT diet: Bananas, rice, applesauce, toast Take ibuprofen or Tylenol for pain as needed every 6 hours Follow up with primary within 5 days Return to ED if develop fever that does not respond to Tylenol or ibuprofen, severe abdominal pain, or any new or worsening symptoms
== END 2017-10-11 23:22 | disposition home or self-care (01) ==
LOC: ED 19:08
DX: R11.2 Nausea with vomiting, unspecified (principal); R19.7 Diarrhea, unspecified; R10.84 Generalized abdominal pain; F17.200 Nicotine dependence, unspecified, uncomplicated; Z88.3 Allergy status to other anti-infective agents
CPT/HCPCS: 36415; 80053; 83690; 83735; 85025; 86141; 96361; 96374; 96375; 99283; J2060; J2405; J2765

== ENCOUNTER 2017-10-12 23:52 | Observation (INO) | payer BC ==
[2017-10-13] MEDS ORDERED: Ondansetron INJ* 2 MG/ML VIAL IV ONE (01:40)
[2017-10-13] MEDS ORDERED: NS 0.9% 1000 ML* 1,000 ML IV SCH (01:45)
[2017-10-13 02:20] LABS: ABS Basophils 0 10^3/ul (0-0.2); ABS Eosinophils 0 10^3/ul (0-0.6); ABS Monocytes 0.3 10^3/ul (0-0.8); ABS Neutrophils 6.6 10^3/ul (1.5-7.7); ABS Nucleated RBC 0 10^3/ul; Eosinophil % 0.1 % (0-6); Hematocrit 37 % (35-47); Hemoglobin 12.8 g/dl (12.0-16.0); Lymphocyte % 12.8 % (25-47); Mean Corpuscular HGB Conc 35 g/dl (31-36); Mean Corpuscular Hemoglobin 32 pg (27-31); Mean Corpuscular Volume 93 fL (80-97); Mean Platelet Volume 9 um3 (7.4-10.4); Nucleated Red Blood Cells % 0; Platelet Count 228 10^3/ul (150-450); Red Blood Count 3.96 10^6/ul (4.0-5.4); Red Cell Distribution Width 12 % (10.5-15); White Blood Count 7.9 10^3/ul (3.5-10.8)
[2017-10-13] MEDS ORDERED: Metoclopramide IV* 5 MG/ML 2 ML VIAL IV ONE (02:29)
[2017-10-13 02:38] LABS: EGFR Non-African American 69.9 (>60)
[2017-10-13] MEDS ORDERED: KCL 20 MEQ/100 ML IVPREMIX* 20 MEQ/100 ML BAG IV ONE (02:44)
[2017-10-13] MEDS ORDERED: Magnesium Hydroxide LIQ* 30 ML UDC PO PRN (03:43)
[2017-10-13] MEDS ORDERED: Al Hydrox/Mg Hydrox/Simet LIQ* 30 ML UDC PO PRN (03:43)
[2017-10-13] MEDS ORDERED: Acetaminophen TAB* 325 MG PO PRN (03:43)
[2017-10-13] MEDS ORDERED: Mouth Piece, Nicotine* 1 EACH CARTRIDGE INH PRN ×2 (03:44)
[2017-10-13] MEDS ORDERED: Thiamine IV* 100 MG/ML 2 ML VIAL IM ONE (03:44)
[2017-10-13] MEDS ORDERED: Nicotine Inhaler* 10 MG AMP INH PRN (03:44)
[2017-10-13] MEDS: KCL premix 10MEQ/50 ML x 2 BAGS IV SCH ×2 (03:51→04:49)
[2017-10-13] MEDS: NS 0.9% 1000 ML* 1,000 ML IV SCH ×3 (03:52→19:48)
[2017-10-13] MEDS ORDERED: NS 0.9% w/ 20 Meq KCL 1000 ML* 1,000 ML IV SCH (04:00)
[2017-10-13] MEDS: LORazepam INJ* 2 MG/ML 1 ML VIAL IV PUSH PRN ×3 (05:30→15:54)
[2017-10-13] MEDS: Ondansetron INJ* 2 MG/ML VIAL IV PRN ×3 (05:30→17:09)
[2017-10-13] MEDS: Heparin VIAL(*) 5000 UNITS/ML VIAL (FIVE THOUSAND) SUBCUT SCH ×3 (05:39→20:34)
--- NOTE | 2017-10-13 06:59 | HP ---
CC: Dr. Troy Moon * HISTORY AND PHYSICAL: DATE OF ADMISSION: 10/13/17 TIME OF EVALUATION: 0300 PRIMARY CARE PHYSICIAN: Troy Moon MD CHIEF COMPLAINT: Nausea, vomiting. HISTORY OF PRESENT ILLNESS: This 62-year-old female with an unremarkable past medical history, who presents to the emergency room for the second day for intractable nausea, vomiting. The patient states her symptoms began on the with nausea, vomiting, diarrhea. The diarrhea was mild and has subsided and now her nausea and dry heaving have persisted and gotten worse. She initially saw her primary care physician and was given Zofran and Phenergan. She went to the emergency room on the , was discharged home with antiemetics. Per and patient, she states that her nausea is worse with dry heaving. She denies any abdominal pain. No fevers. She has had chills. No URI symptoms. No chest pain, no shortness of breath, no urinary symptoms. She has been unable to tolerate any p.o. In the emergency room, the patient had labs, imaging. She was given a liter of fluid, antiemetics, and referred to the hospitalist service for further evaluation. PAST MEDICAL HISTORY: 1. History of ovarian cyst resection. 2. History of admission in April 2017 for intractable nausea, vomiting. Hospital course was complicated by aspiration pneumonia. MEDICATIONS: No routine medications. ALLERGIES: AMOXICILLIN, the patient developed hives. FAMILY HISTORY: Mother from Parkinson's. Father from bladder cancer. 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 She lives at home with her , James, who is her healthcare proxy. She does smoke about a pack per week for the last 4 years. She admits to 3 to 4 beers per day. No illicit drug use. Code status is full code. REVIEW OF SYSTEMS: A 14-point review of systems reviewed in the HPI, otherwise negative. PHYSICAL EXAMINATION GENERAL: Some distress with some intermittent dry heaving. at the bedside. VITAL SIGNS: Temp 97.6, pulse rate 67, respiratory rate 16, oxygen saturation 90 % on room air, blood pressure 149/82. HEENT: Head normocephalic. Pupils equal and reactive. Anicteric. Oropharynx , mucous membranes are dry. NECK: Supple. No lymphadenopathy. No nuchal rigidity. RESPIRATORY: Diminished breath sounds. Prolonged inspiration phase. No wheezing, rhonchi, rales. CARDIAC: Regular rate and rhythm. Soft systolic murmur heard throughout. ABDOMEN: Hyperactive bowel sounds. Soft, nontender, nondistended. EXTREMITIES: No clubbing, cyanosis, or edema. +2 DPs. NEUROLOGIC: Alert and oriented x3. No focal neurologic deficits. DIAGNOSTIC STUDIES/LAB DATA: White count 7.9, hemoglobin 12.8, hematocrit 37, platelets 228. Sodium 135, potassium 3.0, chloride 103, bicarb 22, BUN 13, creatinine 0.83, glucose 146. Abdominal x-rays flat plate, wet read, unremarkable. ASSESSMENT: This is a 62-year-old female with an unremarkable past medical history, who presents to the emergency room with intractable nausea, vomiting. 1. Intractable nausea, vomiting. Assessment: The patient with some mild dehydration, though she is not tachycardic, likely protracted gastroenteritis or possibly gastritis. She is an alcohol user. Plan: We will admit for IV hydration, antiemetics. If the patient's symptoms persist or worsen, consider further evaluation. CHRONIC MEDICAL PROBLEMS: 1. The patient with 3 to 4 beers per day. We will place her on the [place] protocol. 2. FEN. We will place the patient on clear liquid diet with IV fluids. 3. DVT prophylaxis. The patient's score is moderate risk. We will place her on heparin subcu t.i.d. 4. Code status. Full code. PATIENT TIME: Greater than 50 minutes spent doing the history and physical, more than half the time spent in direct patient contact. [id number]/[facility] #: [id number] MTD[place]
[2017-10-13] MEDS: PROCHLORPERAZINE INJ 5 MG/ML 2 ML VIAL IV PRN ×3 (07:26→20:40)
--- NOTE | 2017-10-13 08:16 | RAD ---
INDICATION: 2 days of nausea and vomiting COMPARISON: Similar radiograph dated April 24, 2017 TECHNIQUE: Supine and upright views of the abdomen were obtained. FINDINGS: The small bowel and colon appear nondistended. No free intraperitoneal air is seen. No grossly abnormal or pathologic appearing calcifications are noted. Visualized bones are within normal limits for the patient's age. IMPRESSION: Normal abdominal radiograph.
[2017-10-13] MEDS: Folic Acid TAB* 1 MG PO SCH (10:40)
[2017-10-13] MEDS: Thiamine TAB* 100 MG TAB PO SCH (10:40)
[2017-10-13] MEDS: Multivitamins/Minerals TAB PO SCH (10:40)
[2017-10-13] MEDS ORDERED: Trimethobenzamide IM* 100 MG/ML 2 ml VIAL IM PRN (17:12)
[2017-10-13] MEDS ORDERED: Sucralfate SUSP 1 GM/10 ml 10 ML UDC PO ONE (18:00)
[2017-10-13] MEDS ORDERED: Pantoprazole IV* 40 MG IV SCH (18:00)
[2017-10-13] MEDS: KCL 10 MEQ/50 ML IVPREMIX* 10 MEQ/50 ML BAG IV SCH ×3 (18:02→22:13)
[2017-10-13] MEDS ORDERED: Acetaminophen SUPP* 650 MG SUPP PR PRN (20:36)
[2017-10-13] MEDS ORDERED: KCL 20 MEQ/100 ML IVPREMIX* 20 MEQ/100 ML BAG IV SCH (23:00)
--- NOTE | 2017-10-13 23:26 | PN ---
Subjective Date of Service: 10/13/17 Interval History: c/o mild nausea, vomiting worse with moving. Denies chest pain, or shortness of breath. Denies abd pain or diarrhea Family History: Unchanged from Admission Social History: Unchanged from Admission Past Medical History: Unchanged from Admission Objective Active Medications: Acetaminophen (Tylenol Tab*) 650 mg PO Q4H PRN PRN Reason: FEVER/PAIN Last Admin: 10/13/17 21:01 Dose: 650 mg Acetaminophen (Tylenol Supp*) 650 mg SD Q4H PRN PRN Reason: FEVER Al Hydrox/Mg Hydrox/Simethicone (Maalox Plus*) 30 ml PO Q6H PRN PRN Reason: INDIGESTION Device (Nicotine Mouth Piece*) 1 each INH .USE WITH NICOTROL PRN PRN Reason: CRAVING Folic Acid (Folvite Tab*) 1 mg PO DAILY [facility] Last Admin: 10/13/17 10:40 Dose: Not Given Heparin Sodium (Porcine) (Heparin Vial(*)) 5,000 units SUBCUT Q8HR [facility] Last Admin: 10/13/17 20:34 Dose: 5,000 units Sodium Chloride (Ns 0.9% 1000 Ml*) 1,000 mls @ 125 mls/hr IV PER RATE [facility] Last Admin: 10/13/17 19:48 Dose: 125 mls/hr Potassium Chloride (Potassium Chloride 10 Meq/50 Ml Ivpremix*) 10 meq in 50 mls @ 50 mls/hr IV Q1H [facility] Stop: 10/14/17 02:59 Lorazepam (Ativan Inj*) 0.5 mg IV PUSH Q4H PRN PRN Reason: nausea Last Admin: 10/13/17 15:54 Dose: 0.5 mg Magnesium Hydroxide (Milk Of Magnesia Liq*) 30 ml PO Q4H PRN PRN Reason: CONSTIPATION Multivitamins/Minerals (Theragran/Minerals Tab*) 1 tab PO DAILY [facility] Last Admin: 10/13/17 10:40 Dose: Not Given Nicotine (Nicotine Inhaler*) 10 mg INH Q2H PRN PRN Reason: CRAVING Ondansetron HCl (Zofran Inj*) 4 mg IV Q4H PRN PRN Reason: NAUSEA/VOMITING Last Admin: 10/13/17 17:09 Dose: 4 mg Pantoprazole Sodium (Protonix Iv*) 40 mg IV Q24H [facility] Last Admin: 10/13/17 18:02 Dose: 40 mg Prochlorperazine Edisylate (Compazine Inj*) 10 mg IV Q6H PRN PRN Reason: NAUSEA/VOMITING Last Admin: 10/13/17 20:40 Dose: 10 mg Sucralfate (Sucralfate Susp) 1 gm PO [facility] Thiamine HCl (Vitamin B-1 Tab*) 100 mg PO DAILY [facility] Last Admin: 10/13/17 10:40 Dose: Not Given Trimethobenzamide HCl (Tigan Im*) 200 mg IM Q6H PRN PRN Reason: NAUSEA Last Admin: 10/13/17 19:50 Dose: 200 mg Vital Signs - 8 hr 10/13/17 10/13/17 10/13/17 15:54 16:57 17:51 Temperature 100.2 F Pulse Rate 77 Respiratory 18 20 16 Rate Blood Pressure 124/76 (mmHg) O2 Sat by Pulse 96 Oximetry 10/13/17 10/13/17 19:12 21:02 Temperature 99.6 F 99.3 F Pulse Rate 68 68 Respiratory 18 20 Rate Blood Pressure 144/78 120/69 (mmHg) O2 Sat by Pulse 97 96 Oximetry Oxygen Devices in Use Now: None Eyes: No Scleral Icterus, PERRLA Ears/Nose/Mouth/Throat: Clear Oropharnyx, Mucous Membranes Moist Neck: NL Appearance and Movements; NL JVP, Trachea Midline Respiratory: Symmetrical Chest Expansion and Respiratory Effort, Clear to Auscultation Cardiovascular: NL Sounds; No Murmurs; No JVD, RRR, No Edema Abdominal: NL Sounds; No Tenderness; No Distention Extremities: No Edema, No Clubbing, Cyanosis Skin: No Rash or Ulcers Result Diagrams: 10/13/17 01:55 10/13/17 01:55 Assess/Plan/Problems-Billing Assessment: This is 62 y.o female that presented to the emergency room with nausea and vomiting , unrelieved after IV hydration, hypokalemia . - Patient Problems (1) Hypokalemia Current Visit: Yes Status: Acute Code(s): E87.6 - HYPOKALEMIA SNOMED Code( s): 88170230 Comment: Potassium replaced with 40 meq KCL IV Repeat BMP in the AM (2) Nausea Current Visit: Yes Status: Acute Code(s): R11.0 - NAUSEA SNOMED Code(s): 134612471 Comment: suspect this could be related to daily alcohol consumption. Will place on Carafate protonix tigan compazine zofran (3) Vomiting Current Visit: Yes Status: Acute Code(s): R11.10 - VOMITING, UNSPECIFIED SNOMED Code(s): 249613090 Comment: suspect this could be related to daily alcohol consumption; possible gastric irritation Will place on Carafate protonix tigan compazine zofran (4) DVT prophylaxis Current Visit: No Status: Acute Code(s): BRX6449 - SNOMED Code(s): 589325561 Comment: - SQ heparin. (5) Full code status Current Visit: No Status: Acute Code(s): Z78.9 - OTHER SPECIFIED HEALTH STATUS SNOMED Code(s): 920403391 Status and Disposition: Continue medications for nausea and vomiting Will place on protonix and carafate. repeat cbc and BMP in AM
[2017-10-13] MEDS: KCL premix 10MEQ/50 ML x 4 RUNS IV SCH (23:45)
[2017-10-14] MEDS: KCL premix 10MEQ/50 ML x 4 RUNS IV SCH ×3 (02:03→05:23)
[2017-10-14] MEDS: NS 0.9% 1000 ML* 1,000 ML IV SCH (04:39)
[2017-10-14] MEDS: Heparin VIAL(*) 5000 UNITS/ML VIAL (FIVE THOUSAND) SUBCUT SCH (05:23)
[2017-10-14] MEDS: Sucralfate SUSP 1 GM/10 ml 10 ML UDC PO SCH ×2 (07:22→11:45)
[2017-10-14 08:01] LABS: ABS Basophils 0.1 10^3/ul (0-0.2); ABS Eosinophils 0.1 10^3/ul (0-0.6); ABS Lymphocytes 3.1 10^3/ul (1.0-4.8); ABS Monocytes 0.5 10^3/ul (0-0.8); ABS Neutrophils 3.3 10^3/ul (1.5-7.7); ABS Nucleated RBC 0 10^3/ul; Eosinophil % 1.1 % (0-6); Hematocrit 32 % (35-47); Hemoglobin 11.4 g/dl (12.0-16.0); Lymphocyte % 43.3 % (25-47); Mean Corpuscular HGB Conc 35 g/dl (31-36); Mean Corpuscular Hemoglobin 33 pg (27-31); Mean Corpuscular Volume 93 fL (80-97); Mean Platelet Volume 9 um3 (7.4-10.4); Nucleated Red Blood Cells % 0.1; Platelet Count 184 10^3/ul (150-450); Red Blood Count 3.48 10^6/ul (4.0-5.4); Red Cell Distribution Width 12 % (10.5-15)
[2017-10-14 08:32] LABS: EGFR Non-African American 68.9 (>60)
[2017-10-14] MEDS: Multivitamins/Minerals TAB PO SCH (09:08)
[2017-10-14] MEDS: Folic Acid TAB* 1 MG PO SCH (09:08)
[2017-10-14] MEDS: Thiamine TAB* 100 MG TAB PO SCH (09:09)
[2017-10-14 11:16] VITALS: BP 117/68
--- NOTE | 2017-10-14 13:09 | PN ---
Subjective Date of Service: 10/14/17 Interval History: Patient was examined at the bedside. Pt awake and alert sitting in the bed. Denies N/V/D. Denies chest pain, abd pain or shortness of breath. States that she feels much better today. Family History: Unchanged from Admission Social History: Unchanged from Admission Past Medical History: Unchanged from Admission Objective Vital Signs - 8 hr 10/14/17 10/14/17 10/14/17 05:53 06:46 07:15 Temperature 97.5 F 98.2 F Pulse Rate 53 52 Respiratory 16 16 12 Rate Blood Pressure 98/62 109/59 (mmHg) O2 Sat by Pulse 98 98 Oximetry 10/14/17 10/14/17 10/14/17 09:30 09:32 11:11 Temperature 98.2 F 98.3 F Pulse Rate 59 53 Respiratory 16 16 16 Rate Blood Pressure 103/70 117/68 (mmHg) O2 Sat by Pulse 97 98 Oximetry Oxygen Devices in Use Now: None Appearance: alert, awake, skin color is pink, appears comfortable Eyes: No Scleral Icterus Ears/Nose/Mouth/Throat: NL Teeth, Lips, Gums, Clear Oropharnyx, Mucous Membranes Moist Neck: NL Appearance and Movements; NL JVP, Trachea Midline Respiratory: Symmetrical Chest Expansion and Respiratory Effort, Clear to Auscultation Cardiovascular: NL Sounds; No Murmurs; No JVD, RRR, No Edema Abdominal: NL Sounds; No Tenderness; No Distention Extremities: No Edema, No Clubbing, Cyanosis Skin: No Rash or Ulcers Neurological: Alert and Oriented x 3, NL Sensation, NL Gait, NL Muscle Strength and Tone Nutrition: Taking PO's Result Diagrams: 10/14/17 07:47 10/14/17 07:47 Assess/Plan/Problems-Billing Assessment: This is 62 y.o female that presented to the emergency room with nausea and vomiting , unrelieved after IV hydration, hypokalemia . - Patient Problems (1) Hypokalemia Status: Acute Code(s): E87.6 - HYPOKALEMIA SNOMED Code(s): 17270320 Comment: Potassium replaced with 40 meq KCL IV Repeat BMP in the AM- Potassium 4.0 (2) Nausea Status: Acute Code(s): R11.0 - NAUSEA SNOMED Code(s): 268331933 Comment: suspect this could be related to daily alcohol consumption. Will place on Carafate protonix tigan compazine zofran (3) Vomiting Status: Acute Code(s): R11.10 - VOMITING, UNSPECIFIED SNOMED Code(s): 325074532 Comment: suspect this could be related to daily alcohol consumption; possible gastric irritation Will place on Carafate protonix tigan compazine zofran (4) DVT prophylaxis Status: Acute Code(s): FEH9415 - SNOMED Code(s): 763758615 Comment: - SQ heparin. (5) Full code status Status: Acute Code(s): Z78.9 - OTHER SPECIFIED HEALTH STATUS SNOMED Code(s) : 546634193 Status and Disposition: Continue medications for nausea and vomiting Will place on protonix and carafate. repeat cbc and BMP in AM- stable Feeling much better no nausea or vomiting. Will discharge home.
--- NOTE | 2017-10-17 13:38 | DS ---
DISCHARGE SUMMARY: DATE OF ADMISSION: 10/13/17 DATE OF DISCHARGE: 10/14/17 ATTENDING PHYSICIAN WHILE IN THE HOSPITAL: Dr. Yoly Chavez * (dictated by Yadira Vick, YASMIN). PRIMARY CARE PROVIDER: Dr. Troy Moon. PRIMARY DIAGNOSES: 1. Nausea. 2. Vomiting. SECONDARY DIAGNOSES: She had an admission in April 2017 for intractable nausea and vomiting and aspiration pneumonia. STUDIES WHILE IN THE HOSPITAL: She had an abdominal x-ray. Impression was normal abdominal x-ray. DISCHARGE MEDICATIONS: New home medications are: 1. Zofran 4 mg p.o. q.8 hours as needed for nausea and vomiting. 2. Protonix 40 mg p.o. daily. 3. Sucralfate 1 g p.o. with meals. 4. She can take Tylenol 650 mg every 6 hours as needed for pain. There is no continued home meds. HISTORY OF PRESENT ILLNESS AND HOSPITAL COURSE: Ms. Dubose is 62-year-old female with unremarkable past medical history, who presented to the emergency room for the second day with intractable nausea and vomiting. The patient states that her symptoms began on 10/10/17 with nausea and vomiting and diarrhea. The diarrhea was mild and has subsided and now her nausea is dry heaving that has persisted and gotten worse. She initially saw her primary care provider and was given Zofran and Phenergan. She went to the emergency room on 10/11/17 and was discharged with antiemetics. Per the and the patient, she states her that nausea is worse with dry heaving. She denies any abdominal pain. No fevers, no chills. She states that she has had some chills. Denies any URI symptoms. No chest pain or shortness of breath. No urinary symptoms. She has been unable to tolerate any p.o. in the emergency room. LABORATORY DATA: While in the emergency room, she was given a liter of fluid, some antiemetics, and referred to the hospitalist team for further evaluation. She did have routine lab work while in the emergency room. CBC: RBCs of 3.96, hemoglobin was 12.8, hematocrit was 37, MCH was 32, neutrophils were 83.4, and lymphs were 12.8. Repeat lab work on 10/14/17 showed RBCs of 3.48, hemoglobin of 11.4, hematocrit of 32, MCH was 33, neutrophils were 47.5, and lymphs were 43.3, WBCs were 7.0. On 10/13/17, her initial BMP showed a sodium 135, potassium of 3.0, chloride of 103, carbon dioxide of 22, BUN of 13, creatinine of 0.83, her glucose was 146, calcium was 8.5, and magnesium level was 1.9. Repeat lab work on 10/14/17 showed a sodium of 137, potassium 4.1, chloride of 108, glucose of 101, calcium 8.4, and magnesium of 2.1. On evaluation of 10/14/17, she was feeling better. She says that her nausea has subsided. She is able to tolerate p.o. fluids. She is feeling much better. My plan is to discharge her home today. During her hospitalization, she did receive some potassium supplementation for her low potassium. Ms. Dubose will be discharged back home today. Vital signs are as follows: Temperature was 98.3, heart rate was 53, respirations 16, O2 saturation was 98% on room air, blood pressure 117/68. DISCHARGE PLAN: Ms. Dubose will be discharged back home with her . Activity as tolerated. She can resume a bland diet. I advised her to stay away from spicy or acidic foods for the next week. She should follow up with her primary care provider in 4 to 7 days. She will be discharged with prescription for Zofran 4 mg p.o. q.8 hours as needed for nausea and vomiting. I will give her some Protonix 40 mg p.o. daily and sucralfate 1 g p.o. with meals for 7 days. The patient was instructed to return to the emergency room with any increased abdominal pain or unable to keep p.o. fluids down. This is the summary of her medical stay. For further details, see the entire medical record. TIME SPENT: Time spent on this discharge was approximately 45 minutes. Greater than half that time was spent with the patient discussing discharge plans and implementing the instructions. CONDITION ON DISCHARGE: Stable. YADIRA MORGANNEY, BANKER MASON [id number]/[facility] #: [id number] [facility] HOSPITALDaren
== END 2017-10-14 12:30 | disposition home or self-care (01) ==
LOC: ED 23:52 → MERGE 10-13 03:43 → MED 10-13 03:43
PROVIDERS: ADMIT Pediatrics; ATTEND Nurse Practitioner
DX: R11.2 Nausea with vomiting, unspecified (principal); F17.210 Nicotine dependence, cigarettes, uncomplicated; E87.6 Hypokalemia
CPT/HCPCS: 36415; 74019; 80048; 80053; 83690; 83735; 85025; 96361; 96372; 96375; 96376; 99284; A9270-GY; G0378; J0780; J1644; J2060; J2405; J2765; J3250; J3411; J3480

== ENCOUNTER 2018-02-10 21:27 | Observation (INO) | payer BC ==
[2018-02-10] MEDS ORDERED: Metoclopramide IV* 5 MG/ML 2 ML VIAL ONE (21:45)
[2018-02-10] MEDS ORDERED: Metoclopramide IV* 5 MG/ML 2 ML VIAL IV ONE (21:45)
[2018-02-10] MEDS ORDERED: NS 0.9% 1000 ML* 1,000 ML IV ONE (21:45)
[2018-02-10] MEDS ORDERED: Morphine VIAL* 4 MG/ML VIAL (1 ml vial) IV ONE ×2 (22:05→22:07)
[2018-02-10 22:23] LABS: ABS Basophils 0 10^3/ul (0-0.2); ABS Eosinophils 0.2 10^3/ul (0-0.6); ABS Lymphocytes 1.4 10^3/ul (1.0-4.8); ABS Monocytes 0.4 10^3/ul (0-0.8); ABS Nucleated RBC 0 10^3/ul; Eosinophil % 3.4 % (0-6); Hematocrit 38 % (35-47); Hemoglobin 13.3 g/dl (12.0-16.0); Lymphocyte % 23.6 % (25-47); Mean Corpuscular HGB Conc 35 g/dl (31-36); Mean Corpuscular Hemoglobin 33 pg (27-31); Mean Corpuscular Volume 93 fL (80-97); Mean Platelet Volume 9.1 um3 (7.4-10.4); Nucleated Red Blood Cells % 0.1; Platelet Count 258 10^3/ul (150-450); Red Cell Distribution Width 13 % (10.5-15)
[2018-02-10] MEDS: Pantoprazole IV* 40 MG IV ONE (22:24)
[2018-02-10 22:39] LABS: EGFR Non-African American 71.9 (>60)
[2018-02-10] MEDS ORDERED: Iohexol 300* (CONTRAST) 10 ML SDV IV ONE (22:53)
[2018-02-11] MEDS ORDERED: Trimethobenzamide IM* 100 MG/ML 2 ml VIAL IM ONE (00:19)
[2018-02-11] MEDS ORDERED: Ondansetron INJ* 2 MG/ML VIAL IV ONE (01:18)
[2018-02-11] MEDS ORDERED: Ondansetron INJ* 2 MG/ML VIAL IV PRN (02:35)
[2018-02-11] MEDS ORDERED: Morphine VIAL* 4 MG/ML VIAL (1 ml vial) IV PRN (02:35)
[2018-02-11] MEDS ORDERED: PROCHLORPERAZINE INJ 5 MG/ML 2 ML VIAL IV PRN (02:35)
[2018-02-11] MEDS ORDERED: LORazepam INJ* 2 MG/ML 1 ML VIAL IV PUSH PRN (03:57)
[2018-02-11] MEDS ORDERED: Scopolamine 1.5 mg* PATCH TRANSDERM SCH (04:00)
[2018-02-11] MEDS: NS 0.9% 1000 ML* 1,000 ML IV SCH ×2 (04:20→14:31)
[2018-02-11] MEDS: Ciprofloxacin 400MG IVPREMIX(* 400 MG/200 ML BAG IVPB SCH ×2 (04:20→14:31)
[2018-02-11 04:27] LABS: INR 0.98 (0.77-1.02)
[2018-02-11 04:49] LABS: Urine Appearance Clear; Urine Blood Negative (Negative); Urine Color Yellow; Urine Ketones 2+ (Negative); Urine Protein Negative (Negative); Urine Specific Gravity 1.059 (1.010-1.030); Urine Urobilinogen Negative (Negative)
[2018-02-11] MEDS: Heparin VIAL(*) 5000 UNITS/ML VIAL (FIVE THOUSAND) SUBCUT SCH ×3 (04:55→21:43)
[2018-02-11] MEDS: metroNIDAZOLE IV 500 MG/100ML* 500 MG/100 ML BAG IVPB SCH ×2 (05:31→11:30)
--- NOTE | 2018-02-11 05:50 | HP ---
CC: Dr. Troy Moon * HISTORY AND PHYSICAL: DATE OF ADMISSION: PRIMARY CARE PROVIDER: Dr. Troy Moon, [place], [place] ATTENDING PHYSICIAN WHILE IN THE HOSPITAL: Dr. Jose Luis Schmidt * (report dictated by Renny Aguiar NP) CHIEF COMPLAINT: 1. Nausea and vomiting. 2. Left lower quadrant abdominal pain. HISTORY OF PRESENT ILLNESS: Ms. Dubose is a 62-year-old female patient who has had 2 previous episodes of intractable nausea and vomiting of unclear etiology. She comes in today. She also carries a history of ovarian cyst but otherwise healthy. She comes in today because yesterday around midnight she started having a left lower quadrant abdominal discomfort that has just got progressively worse throughout the day today and throughout the evening and then around 6 o'clock, she started having another episodes where she just started having nausea and vomiting. She could not keep anything down, to try to eat or drink anything. The discomfort was worse, the vomiting was worse. She denied having any diarrhea. She denied having any coffee-ground emesis. She denied having any melena or tarry stools. She states that the pain mostly is a sharp stabbing pain in the left lower quadrant. There has been chills. There has been no documented fever. She denies any significant weight changes. She states she has never had a colonoscopy or any endoscopy procedures before. She denied any chest pain or shortness of breath but she was concerned because she just could not keep anything down. She only had a cup of coffee today and a soda for fluid intake. She came into the emergency department today. She was evaluated. CT imaging, there was concern for colitis and diverticulitis in the sigmoid colon. There was concern because she was given several rounds of antiemetics that was no avail and we were asked to evaluate for admission. PAST MEDICAL HISTORY: Significant for: 1. Ovarian cyst. 2. History of intractable nausea and vomiting, unclear etiology. PAST SURGICAL HISTORY: She has had ovarian cyst removed. MEDICATIONS: Home medications denied. She said she does not take any meds that she was discharged on back in October. ALLERGIES: Her allergies to medications include AMOXICILLIN and CLINDAMYCIN. FAMILY HISTORY: Her mother had history of Parkinson's. Father had history of bladder cancer. SOCIAL HISTORY: She is smoking about 1 pack a week. She does drink about 3 to 4 beers a night. Surrogate decision maker is her partner, James. REVIEW OF SYSTEMS: There is documented fever. She denies having any significant weight change. There is no double vision. She denies having any ear discharge. There is no rhinorrhea. There is no sore throat. No thyroid enlargement. She denied having any chest pain. There is no orthopnea. There is no nocturnal dyspnea. She does admit to having left lower quadrant abdominal pain. She does admit nausea and vomiting. No diarrhea, no dysuria. No frequency, no seizure. No loss of consciousness, no pruritus and no skin ulcerations. Review of 14 systems was completed, all others negative. PHYSICAL EXAMINATION GENERAL: At this time, Ms. Dubose is a 62-year-old female patient. She is sitting in the ED stretcher. She appears to be well nourished, well developed. She does not appear to be in any acute distress. VITAL SIGNS: Blood pressure 141/89, pulse 71, respirations 17, O2 sat of 100%, temperature 98.7. HEENT: Head: Atraumatic and normocephalic. Eyes: EOMs are intact. Sclerae anicteric and not pale. Throat: Oral mucosa appears to be moist. No oropharyngeal erythema. NECK: Supple. LUNGS: Clear to auscultation bilaterally. No wheezes, rales, or rhonchi. HEART: Sounds S1, S2. Regular rate and rhythm. No murmurs, rubs, or gallops. ABDOMEN: Soft. It was flat, nondistended. Bowel sounds were present. There is tenderness in the left lower quadrant. EXTREMITIES: Pulses were 2+ throughout. She had no peripheral edema. She is moving all 4 extremities with 5/5 strength. NEUROLOGIC: The patient is awake. She is alert. She is oriented x3. Tongue midline. Fibrous Plasterer were equal. There are no gross focal deficits. SKIN: Grossly intact. DIAGNOSTIC STUDIES/LABORATORY DATA: WBC of 6.0, RBC of 4.10, hemoglobin of 13.0, hematocrit of 38, platelet count of 258. Sodium was 136, potassium was 3.5, chloride 102, bicarb 21, BUN 12, creatinine 0.81, glucose 128. Lactate 1.8 , calcium 9.3. Total bili 0.6, AST 24, ALT 21, alk phos 71. Troponin 0. CRP 2.08, albumin 4.4. Lipase 301. She did have an EKG obtained today here in the emergency department, which revealed normal sinus rhythm with a rate of 62. No ST elevations or T-wave inversions are noted. She had an EKG from 2017, appears to be similar. The rate is faster now. She had abdominal pelvis CT obtained today in the ER and this is an overnight read, impression: Sigmoid colitis. Old medical records were reviewed. ASSESSMENT AND PLAN: Ms. Dubose is a 62-year-old female patient coming into the emergency department today with complaints of left lower quadrant abdominal discomfort with associated nausea and vomiting, found to have colitis. We were asked to evaluate for admission. Patient will be admitted under observation status for: 1. Colitis. At this point, I will go ahead and put the patient on Cipro Flagyl. I will make the patient n.p.o. Continue with pain control in the form of morphine and will continue to follow her. 2. Intractable nausea, vomiting. Again, the etiology of this is unclear. I think because this her third episode within a year, we probably should get GI involved to help us with any further recommendations and she is going to need a colonoscopy. She has never had a screening one. She may even need an EGD at some point, but it would not be of value to get. I will probably get GI involving and touch base with them in the morning. I am going to put her on Zofran, scopolamine patch, and Compazine for the nausea, make her n.p.o., hydrate her. We will follow. 3. Elevated lipase. This is probably secondary to the nausea and vomiting. She is not really having any epigastric pain and she is not tender near the pancreas and there was no reports or information on CT imaging but I will go ahead and make her n.p.o., hydrate her, repeat the lipase in the morning to make sure is coming down. We will follow. 4. DVT prophylaxis: I will go ahead and place her on heparin subcu. 5. Code status: Full code. 6. Fluids, electrolytes, and nutrition: Again n.p.o. I did order normal saline at 125 an hour. TIME SPENT: On the admission was approximately 60 minutes, greater than half the time was spent [id number] with the patient obtaining my history and physical; other half time was spent going over the plan of care with the patient and implementing plan of care. I discussed the plan of care with my attending, Dr. Schmidt, he is in agreement. RENNY AGUIAR NP [id number]/[facility] #: [id number] MTDD
[2018-02-11 05:53] LABS: ABS Basophils 0 10^3/ul (0-0.2); ABS Eosinophils 0 10^3/ul (0-0.6); ABS Lymphocytes 0.5 10^3/ul (1.0-4.8); ABS Monocytes 0.1 10^3/ul (0-0.8); ABS Neutrophils 4.8 10^3/ul (1.5-7.7); ABS Nucleated RBC 0 10^3/ul; Eosinophil % 0 % (0-6); Hematocrit 35 % (35-47); Hemoglobin 12.2 g/dl (12.0-16.0); Lymphocyte % 9.2 % (25-47); Mean Corpuscular HGB Conc 35 g/dl (31-36); Mean Corpuscular Hemoglobin 33 pg (27-31); Mean Corpuscular Volume 93 fL (80-97); Mean Platelet Volume 8.9 um3 (7.4-10.4); Nucleated Red Blood Cells % 0; Platelet Count 240 10^3/ul (150-450); Red Blood Count 3.72 10^6/ul (4.0-5.4); Red Cell Distribution Width 12 % (10.5-15); White Blood Count 5.4 10^3/ul (3.5-10.8)
[2018-02-11 06:09] LABS: EGFR Non-African American 86.5 (>60)
--- NOTE | 2018-02-11 06:34 | ED ---
Cheryl Garcia Rebecca, scribed for Jovan Bingham MD on 02/10/18 at 2157 . Abdominal Pain/Female - HPI Summary HPI Summary: Pt is a 62 y/o F who presents to ED c/o abdominal pain. Pain began yesterday and is located in the LUQ. Currently, pain is in the LUQ, though previously it was in the umbilical region, and is moderate, ranked 7/10. 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 Additionally c/o N/V. Denies CP, SOB. Last BM 2 hours ago and she is not passing gas. Prior similar episode with N/V that required hospitalized, though she then did not have any pain, and never had a Dx. SHx daily EtOH intake. No PMHx SBO and pancreatitis. - History of Current Complaint Chief Complaint: EDAbdPain Stated Complaint: ABD PAIN/VOMITING Time Seen by Provider: 02/10/18 21:44 Hx Obtained From: Patient Onset/Duration: Lasting Days - Since yesterday, Still Present Severity Currently: Moderate Pain Intensity: 7 Pain Scale Used: 0-10 Numeric Location: Discrete At: LUQ Associated Signs and Symptoms: Positive: Nausea, Vomiting. Negative: Chest Pain Allergies/Adverse Reactions: Allergies Allergy/AdvReac Type Severity Reaction Status Date / Time amoxicillin Allergy Rash And Verified 02/10/18 21:32 Itching clindamycin Allergy Nausea Verified 02/10/18 21:33 Home Medications: Home Medications NK [No Home Medications Reported] 02/10/18 [History Confirmed 02/10/18] PMH/Surg Hx/FS Hx/Imm Hx Endocrine/Hematology History: Denies: Hx Anticoagulant Therapy, Hx Diabetes Cardiovascular History: Denies: Hx Hypertension, Hx Myocardial Infarction Sensory History: Reports: Hx Contacts or Glasses Denies: Hx Hearing Aid Opthamlomology History: Reports: Hx Contacts or Glasses Infectious Disease History: No Infectious Disease History: Denies: Traveled Outside the [place] in Last 30 Days - Family History Known Family History: Negative: Cardiac Disease, Hypertension, Diabetes - Social History Alcohol Use: Occasionally Alcohol Amount: 3 beers Hx Substance Use: No Substance Use Type: Reports: None Hx Tobacco Use: Yes Smoking Status (MU): Light Every Day Tobacco Smoker Review of Systems Negative: Chest Pain Negative: Shortness Of Breath Positive: Abdominal Pain, Vomiting, Nausea All Other Systems Reviewed And Are Negative: Yes Physical Exam - Summary Physical Exam Summary: GENERAL: ~Patient is a well developed and nourished F who is lying comfortable in the stretcher. ~Patient is not in any acute respiratory distress. HEAD AND FACE: Normocephalic EYES: PERRLA, EOMI x 2. EARS: Hearing grossly intact. MOUTH: Oropharynx within normal limits. NECK: Supple, trachea is midline, no adenopathy, no JVD, no carotid bruit. CHEST: Symmetric, no tenderness at palpation LUNGS: Clear to auscultation bilaterally. No wheezing or crackles. CVS: Regular rate and rhythm, S1 and S2 present, no murmurs or gallops appreciated. ABDOMEN: Soft, tender in the epigastric and LUQ region. Bowel sounds are normal. No abdominal abnormal pulsations. EXTREMITIES: Full ROM in all major joints, no edema, no cyanosis or clubbing. NEURO: Alert and oriented x 3. No acute neurological deficits. Speech is normal and follows commands. SKIN: Dry and warm Triage Information Reviewed: Yes Vital Signs On Initial Exam: Initial Vitals Temp Pulse Resp BP Pulse Ox 98.7 F 68 16 133/81 99 02/10/18 21:31 02/10/18 21:31 02/10/18 21:31 02/10/18 21:31 02/10/18 21:31 Vital Signs Reviewed: Yes Diagnostics - Vital Signs Vital Signs Temp Pulse Resp BP Pulse Ox 02/10/18 21:31 98.7 F 68 16 133/81 99 - Laboratory Result Diagrams: 02/10/18 22:09 02/10/18 22:09 Lab Statement: Any lab studies that have been ordered have been reviewed, and results considered in the medical decision making process. - CT CT Abd/Pelvis CT Interpretation: Positive (See Comments) CT Interpretation Completed By: Radiologist - Sigmoid colitis. ED physician reviewed the report. - EKG 2205 Cardiac Rate: NL - 62 bpm EKG Interpretation: Sinus arrhythmia Re-Evaluation - Re-Evaluation First Eval Re-Evaluation Time: 00:51 Comment: Pt continues to be nauseous. 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 Denies CP, SOB. Her workup is remarkable for a carbon dioxide of 21, her CT shows sigmoid colitis. Pt was given IV fluids, pain medicine, multiple different anti-nausea medicine and still have intractable vomiting so the pt will be admitted. Case discussed with hospitalist. - Diagnoses Provider Diagnoses: Colitis, Intractable vomiting - Provider Notifications Discussed Care Of Patient With: Jose Luis Schmidt Time Discussed With Above Provider: 02:00 Instructed by Provider To: Other - Accepts pt for admission Discharge - Sign-Out/Discharge Documenting (check all that apply): Discharge/Admit/Transfer - Admit - Discharge Plan Condition: Stable Disposition: ADMITTED TO [facility] Referrals: Sarai SACNHEZ,Tory Pineda [Primary Care Provider] - The documentation as recorded by the Cheryl carbone Rebecca accurately reflects the service I personally performed and the decisions made by me, Jovan Bingham MD.
--- NOTE | 2018-02-11 07:56 | RAD ---
INDICATION: Left upper quadrant pain COMPARISON: None TECHNIQUE: Axial source images were obtained from the hemidiaphragms to the symphysis pubis following administration of oral and intravenous contrast. 85.2 mL Omnipaque 300 was utilized. Coronal and sagittal reconstructed images were acquired. Lung bases: The lung bases are clear. Liver: The liver is normal in size. There are no masses. There is no ductal dilatation. Gallbladder: There are no calcified gallstones. There is no evidence of wall thickening or pericholecystic fluid. Spleen: The spleen is normal in size. There are no masses. Pancreas: There is no focal pancreatic mass or ductal dilatation. Adrenal glands: There is no evidence of adrenal mass. Kidneys: The kidneys are normal in size and position. There are prompt nephrograms and there is prompt excretion bilaterally. There are no renal parenchymal masses. There is no evidence of nephrolithiasis. Adenopathy: There is no evidence of adenopathy by size criteria. Fluid collections: There are no free or localized fluid collections. Vessels:There are no significant atherosclerotic changes involving the aorta. There is no focal aneurysm. The iliac vessels are normal in caliber. The IVC appears normal. GI tract: There are no acute CT bowel findings. There is a small hiatal hernia. Upper GI tract is otherwise unremarkable. There is moderate stool throughout the colon. There are moderate diverticula of the sigmoid colon no CT findings to suggest acute diverticulitis. There are no findings of obstruction or perforation. Pelvic organs: The uterus and adnexa appear normal Bladder: There are no bladder masses. Abdominal and pelvic soft tissues: The extraperitoneal abdominal and pelvic soft tissues appear normal.. Osseous structures: There are no acute osseous findings. Other: None IMPRESSION: NO ACUTE CT FINDINGS. RETAINED STOOL. DIVERTICULA.
[2018-02-11] MEDS: Famotidine IV* 10 MG/ML 2 ML (20 mg) IV SCH (08:39)
[2018-02-11] MEDS ORDERED: Famotidine IV * 20 MG in NS 0.9% 100 ML* 100 ML IVPB SCH (09:00)
[2018-02-11] MEDS ORDERED: Trimethobenzamide IM* 100 MG/ML 2 ml VIAL IM PRN (15:19)
--- NOTE | 2018-02-11 15:31 | PN ---
Subjective Date of Service: 02/11/18 Interval History: continue to c/o nausea. Denies chest pain or shortness of breath. denies fever or chills Family History: Unchanged from Admission Social History: Unchanged from Admission Past Medical History: Unchanged from Admission Objective Active Medications: Famotidine (Pepcid Iv*) 20 mg IV DAILY [facility] Last Admin: 02/11/18 08:39 Dose: 20 mg Heparin Sodium (Porcine) (Heparin Vial(*)) 5,000 units SUBCUT Q8HR [facility] Last Admin: 02/11/18 14:31 Dose: 5,000 units Ciprofloxacin/Dextrose (Cipro 400 Mg Ivpremix(*)) 400 mg in 200 mls @ 200 mls/ hr IVPB Q12H [facility] Last Admin: 02/11/18 14:31 Dose: 200 mls/hr Metronidazole/Sodium Chloride (Flagyl 500 Mg Ivpb*) 500 mg in 100 mls @ 100 mls /hr IVPB Q8H [facility] Last Admin: 02/11/18 11:30 Dose: 100 mls/hr Sodium Chloride (Ns 0.9% 1000 Ml*) 1,000 mls @ 125 mls/hr IV PER RATE [facility] Last Admin: 02/11/18 14:31 Dose: 125 mls/hr Lorazepam (Ativan Inj*) 1 mg IV PUSH Q6H PRN PRN Reason: ANXIETY Morphine Sulfate (Morphine Vial*) 2 mg IV Q4H PRN PRN Reason: PAIN - MILD Ondansetron HCl (Zofran Inj*) 4 mg IV Q6H PRN PRN Reason: NAUSEA Last Admin: 02/11/18 11:49 Dose: 4 mg Pantoprazole Sodium (Protonix Iv*) 40 mg IV ED ONCE ONE Stop: 02/11/18 21:46 Last Admin: 02/10/18 22:24 Dose: 40 mg Pharmacy Profile Note (Scopolamine Patch Remove*) 1 note PATCH OFF Q72H [facility] Prochlorperazine Edisylate (Compazine Inj*) 10 mg IV Q6H PRN PRN Reason: NAUSEA/VOMITING Last Admin: 02/11/18 08:39 Dose: 10 mg Scopolamine (Transderm-Scop 1.5 Mg Patch*) 1 patch TRANSDERM Q72H [facility] Last Admin: 02/11/18 04:13 Dose: 1 patch Trimethobenzamide HCl (Tigan Im*) 200 mg IM Q8H PRN PRN Reason: NAUSEA Vital Signs - 8 hr 02/11/18 02/11/18 02/11/18 07:55 11:54 12:03 Temperature 98.2 F 101.1 F 99.1 F Pulse Rate 72 43 Respiratory 14 16 Rate Blood Pressure 122/73 123/53 (mmHg) O2 Sat by Pulse 100 97 Oximetry Oxygen Devices in Use Now: None Appearance: appears tired lying in bed, no acute distress Eyes: No Scleral Icterus Ears/Nose/Mouth/Throat: Clear Oropharnyx, Mucous Membranes Moist Neck: NL Appearance and Movements; NL JVP, Trachea Midline Respiratory: Symmetrical Chest Expansion and Respiratory Effort, Clear to Auscultation Cardiovascular: NL Sounds; No Murmurs; No JVD Abdominal: NL Sounds; No Tenderness; No Distention Extremities: No Edema, No Clubbing, Cyanosis Skin: No Rash or Ulcers Neurological: Alert and Oriented x 3, NL Muscle Strength and Tone Nutrition: Taking PO's Result Diagrams: 02/11/18 05:37 02/11/18 05:37 Assess/Plan/Problems-Billing Assessment: Ms. Dubose is a 62 y.o female with a past medical history of intractable nausea and vomiting, who presented to the ER with nausea and vomiting. - Patient Problems (1) Pancreatitis Current Visit: Yes Status: Acute Code(s): K85.90 - ACUTE PANCREATITIS WITHOUT NECROSIS OR INFECTION, UNSP SNOMED Code(s): 07857108 Comment: Patient does consume alcohol on a daily basis reports 3 to 5 drinks daily Suspect abd pain could be related to mild pancreatitis d/t alcohol use will offer clear liquids (2) Nausea Current Visit: No Status: Acute Code(s): R11.0 - NAUSEA SNOMED Code(s): 321069051 Comment: suspect this could be related to daily alcohol consumption and gastritis Will continue protonix will continue zofran, compazine and scopolamine patch for nausea will add tigan as this has helped in the past with the nasuea zofran (3) Vomiting Current Visit: No Status: Acute Code(s): R11.10 - VOMITING, UNSPECIFIED SNOMED Code(s): 371372928 Comment: suspect this could be related to daily alcohol consumption; possible gastric irritation (4) DVT prophylaxis Current Visit: No Status: Acute Code(s): KYV7627 - SNOMED Code(s): 963577260 Comment: - SQ heparin. (5) Full code status Current Visit: No Status: Acute Code(s): Z78.9 - OTHER SPECIFIED HEALTH STATUS SNOMED Code(s): 317123195 Status and Disposition: inpatient
[2018-02-11] MEDS: Pantoprazole IV* 40 MG IV ONE (22:11)
[2018-02-11] MEDS: Sucralfate SUSP 1 GM/10 ml 10 ML UDC PO SCH (22:43)
--- NOTE | 2018-02-11 22:58 | CONS ---
CC: Marleny Plunkett DO; Dr. Schmidt; Renny Aguiar NP; Dr. Troy Moon, [place], [place] GASTROENTEROLOGY CONSULTATION NOTE: DATE OF CONSULT: 02/11/18 HOSPITAL PROVIDER: Renny Aguiar NP PRIMARY CARE PROVIDER: Dr. Troy Moon in [place], [place]. ATTENDING PHYSICIAN: Jose Luis Schmidt MD REASON FOR CONSULT: Nausea, vomiting. HISTORY OF PRESENT ILLNESS: Florecita Dubose is a pleasant 62-year-old female with a history of alcohol abuse, who presented to [facility] ER earlier this morning with several episodes of nausea, vomiting with associated left lower quadrant abdominal pain. She states this became worse throughout the day and she was unable to eat or drink anything for almost an entire day. Her abdominal pain in the left lower quadrant had also become worse, which prompted her to come to the emergency room for further evaluation. She did have a similar episode back in October of 2017 where she was treated with antibiotics, antiemetics and antacid therapy and her symptoms resolved. She denies any sick contacts. Denies any change in bowel habits, rectal bleeding or melena. She states her abdominal pain has actually improved since admission and hydration in the ER. She denies any fevers, chills or weight changes. She does not have a previous history of endoscopy or colonoscopy. Gastroenterology was consulted for further evaluation of patients nausea/emesis as she continues to have these symptoms while admitted in the hospital. She denies dysphagia, heartburn, hematemesis. She denies a family history of gastrointestinal malignancies. She admits to drinking approximately 2 beers per day. PAST MEDICAL HISTORY: 1. Ovarian cyst. 2. Episode of intractable nausea, vomiting in October of 2016. PAST SURGICAL HISTORY: 1. Ovarian cyst removal. HOME MEDICATIONS: 1. Denies prescription medications, [id number] and herbal supplementations. ALLERGIES: 1. To AMOXICILLIN and CLINDAMYCIN. FAMILY HISTORY: 1. Mother with Parkinson's. 2. Father with bladder cancer. SOCIAL HISTORY: She smokes about a pack of cigarettes per week. She admits to me to drinking about 2 beers per night; however, it has been documented that she has previously admitted to drinking 3 to 4 beers a night. REVIEW OF SYSTEMS: Review of systems on a 14-point scale has been reviewed. All pertinent positives and negatives have been noted above in the HPI. PHYSICAL EXAM: Vital Signs: Temperature 98.4, pulse 56, respirations 16, oxygenation 96% on room air, blood pressure 138/58. Generally, the patient is alert and oriented x3, in no acute distress, lying in bed, appears well nourished. HEENT: Normocephalic, atraumatic. Extraocular muscles intact. Anicteric sclerae bilaterally. Cardiovascular Exam: Regular rate and rhythm. Pulmonary: Clear to auscultation bilaterally. Abdomen: Soft, nontender, nondistended. No rebound, guarding, or rigidity. Bowel sounds are present in 4 quadrants. Extremities: Warm. No clubbing, cyanosis, or edema. Neurologic: No gross focal deficits are appreciated. DIAGNOSTIC STUDIES/LAB DATA: WBCs 5.4, hemoglobin 12.2, hematocrit 35, MCV 93, platelets 240. INR 0.98, PTT 30.3. Sodium 134, potassium 3.6, chloride 104, CO2 20, anion gap 10, BUN 10, creatinine 0.69, lactic acid 1.8, calcium 8.7, magnesium 2.0. Total bilirubin 0.60, AST 24, ALT 21, alkaline phosphatase 71. Troponin 0.00. CRP 2.08. Total protein 7.2, albumin 4.4. Lipase 301 on admission, today 216. TSH 2.07. CT of the abdomen and pelvis reveals moderate amount of stool throughout the colon and diverticulosis. There are no other acute abdominal processes noted. ASSESSMENT AND PLAN: Florecita is a 62-year-old female with a history of alcohol abuse, who presented to [facility] with her second episode of intractable nausea, vomiting, and associated left lower quadrant pain. Upon arrival to the emergency room, after hydration her abdominal pain has resolved; however, her nausea and vomiting have persisted over throughout the day. She has been unable to tolerate liquids. Her lipase level was slightly elevated in the 300s upon arrival to the emergency room. Her CT abdomen was negative for any acute process besides some moderate amount of stool in the colon. Her white count, hemoglobin and platelet count are normal at this time. She is currently receiving aggressive IV fluid hydration. She is on clear liquids as tolerated. Given her second episode of intractable nausea, vomiting without an unclear etiology although may be secondary to her mild pancreatitis from likely alcohol abuse, we will plan for an upper endoscopy tomorrow morning for further evaluation. Symptoms appeared to be related to mild pancreatitis with possible gastritis. We will continue pantoprazole therapy 40 mg once daily for now along with antiemetics as needed. Alcohol and tobacco cessation was encouraged. The risks and benefits of the upper endoscopy were discussed. The patient is agreeable. She will remain n.p.o. after midnight. Of note her LLQ pain may be related to stool seen in her colon on CT. Recommend miralax when patient is able to tolerate a diet in the near future. She will also need a screening colonoscopy as an outpatient since she has never had one. Case was discussed with Yadira Vick NP. Further recommendations will be provided as the patient's clinical course progresses. If you should have any further questions or concerns, please do not hesitate to contact us. [id number]/[facility] #: [id number] [place]
[2018-02-12] MEDS: NS 0.9% 1000 ML* 1,000 ML IV SCH ×2 (02:20→13:12)
[2018-02-12] MEDS: Heparin VIAL(*) 5000 UNITS/ML VIAL (FIVE THOUSAND) SUBCUT SCH ×2 (05:10→13:11)
[2018-02-12 06:14] LABS: ABS Basophils 0 10^3/ul (0-0.2); ABS Eosinophils 0 10^3/ul (0-0.6); ABS Lymphocytes 2.5 10^3/ul (1.0-4.8); ABS Monocytes 0.6 10^3/ul (0-0.8); ABS Neutrophils 3.6 10^3/ul (1.5-7.7); ABS Nucleated RBC 0 10^3/ul; Hematocrit 31 % (35-47); Hemoglobin 11.2 g/dl (12.0-16.0); Lymphocyte % 37.5 % (25-47); Mean Corpuscular HGB Conc 36 g/dl (31-36); Mean Corpuscular Hemoglobin 33 pg (27-31); Mean Corpuscular Volume 93 fL (80-97); Mean Platelet Volume 9.2 um3 (7.4-10.4); Platelet Count 202 10^3/ul (150-450); Red Blood Count 3.36 10^6/ul (4.0-5.4); Red Cell Distribution Width 13 % (10.5-15); White Blood Count 6.7 10^3/ul (3.5-10.8)
[2018-02-12 06:15] LABS: Eosinophil % 0.4 % (0-6); Nucleated Red Blood Cells % 0
[2018-02-12 06:34] LABS: EGFR Non-African American 79.8 (>60)
[2018-02-12] MEDS ORDERED: fentaNYL* 50 MCG/ML 2 ML VIAL (100 MCG VIAL) ONE (10:07)
[2018-02-12] MEDS ORDERED: Midazolam* 1 MG/ML 10 ML VIAL (10 MG) ONE (10:07)
[2018-02-12] MEDS: Sucralfate SUSP 1 GM/10 ml 10 ML UDC PO SCH ×2 (12:29→13:11)
[2018-02-12] MEDS: Famotidine IV* 10 MG/ML 2 ML (20 mg) IV SCH (13:11)
[2018-02-12] MEDS ORDERED: Potassium Chlor TAB* 10 MEQ TAB.ER PO ONE (14:21)
[2018-02-12 15:45] VITALS: BP 104/63
--- NOTE | 2018-02-12 16:34 | PN ---
Subjective Date of Service: 02/12/18 Interval History: reports that she is feeling better, Denies chest pain or shortness of breath. Denies abd , n/v/d. denies fever or chills. Family History: Unchanged from Admission Social History: Unchanged from Admission Past Medical History: Unchanged from Admission Objective Active Medications: Famotidine (Pepcid Iv*) 20 mg IV DAILY [facility] Last Admin: 02/12/18 13:11 Dose: 20 mg Heparin Sodium (Porcine) (Heparin Vial(*)) 5,000 units SUBCUT Q8HR [facility] Last Admin: 02/12/18 13:11 Dose: Not Given Sodium Chloride (Ns 0.9% 1000 Ml*) 1,000 mls @ 125 mls/hr IV PER RATE [facility] Last Admin: 02/12/18 13:12 Dose: 125 mls/hr Lorazepam (Ativan Inj*) 1 mg IV PUSH Q6H PRN PRN Reason: ANXIETY Last Admin: 02/11/18 15:42 Dose: 1 mg Morphine Sulfate (Morphine Vial*) 2 mg IV Q4H PRN PRN Reason: PAIN - MILD Ondansetron HCl (Zofran Inj*) 4 mg IV Q6H PRN PRN Reason: NAUSEA Last Admin: 02/11/18 11:49 Dose: 4 mg Prochlorperazine Edisylate (Compazine Inj*) 10 mg IV Q6H PRN PRN Reason: NAUSEA/VOMITING Last Admin: 02/11/18 08:39 Dose: 10 mg Sucralfate (Sucralfate Susp) 1 gm PO QID [facility] Last Admin: 02/12/18 13:11 Dose: 1 gm Trimethobenzamide HCl (Tigan Im*) 200 mg IM Q8H PRN PRN Reason: NAUSEA Last Admin: 02/11/18 15:42 Dose: 200 mg Vital Signs - 8 hr 02/12/18 15:05 Temperature 97.9 F Pulse Rate 62 Respiratory 16 Rate Blood Pressure 104/63 (mmHg) O2 Sat by Pulse 97 Oximetry Oxygen Devices in Use Now: None Appearance: appears comfortable resting in bed, no acute distress Eyes: No Scleral Icterus Ears/Nose/Mouth/Throat: Clear Oropharnyx, Mucous Membranes Moist Neck: NL Appearance and Movements; NL JVP, Trachea Midline Respiratory: Symmetrical Chest Expansion and Respiratory Effort, Clear to Auscultation Cardiovascular: NL Sounds; No Murmurs; No JVD, No Edema Abdominal: NL Sounds; No Tenderness; No Distention Extremities: No Edema, No Clubbing, Cyanosis Skin: No Rash or Ulcers, No Nodules or Sclerosis Neurological: Alert and Oriented x 3, NL Gait, NL Muscle Strength and Tone Nutrition: Taking PO's Result Diagrams: 02/12/18 05:56 02/12/18 05:56 Microbiology and Other Data: Microbiology 02/11/18 04:10 Urine Culture - Final Urine Assess/Plan/Problems-Billing Assessment: Ms. Dubose is a 62 y.o female with a past medical history of intractable nausea and vomiting, who presented to the ER with nausea and vomiting. - Patient Problems (1) Pancreatitis Current Visit: Yes Status: Acute Code(s): K85.90 - ACUTE PANCREATITIS WITHOUT NECROSIS OR INFECTION, UNSP SNOMED Code(s): 81107222 Comment: states that abd pain is gone, denies any nausea- tolerating clear liquids well, no vomiting Patient does consume alcohol on a daily basis reports 3 to 5 drinks daily Suspect abd pain could be related to mild pancreatitis d/t alcohol use will offer bland diet (2) Gastritis Current Visit: Yes Status: Acute Code(s): K29.70 - GASTRITIS, UNSPECIFIED, WITHOUT BLEEDING SNOMED Code(s): 4627319 Comment: suspect this is related to alcohol use- advised patient to stop alcohol comsumption - Will discharge home on omeprazole and carafate supp - follow up with GI in 2 weeks (3) Nausea Current Visit: No Status: Acute Code(s): R11.0 - NAUSEA SNOMED Code(s): 300905678 Comment: suspect this could be related to daily alcohol consumption and gastritis will add tigan as this has helped in the past with the nasuea- nausea resolved after tigan and ativan last PM- patient reports no further nasuea- tolerating clear fluilds (4) Vomiting Current Visit: No Status: Acute Code(s): R11.10 - VOMITING, UNSPECIFIED SNOMED Code(s): 158352480 Comment: suspect this could be related to daily alcohol consumption; possible gastric irritation (5) DVT prophylaxis Current Visit: No Status: Acute Code(s): QZS2490 - SNOMED Code(s): 454536294 Comment: - SQ heparin. (6) Full code status Current Visit: No Status: Acute Code(s): Z78.9 - OTHER SPECIFIED HEALTH STATUS SNOMED Code(s): 298348072 Status and Disposition: will discharge home
--- NOTE | 2018-02-12 21:19 | PRO ---
CC: Yadira Vick NP; Dr. Troy Moon; Dr. Marleny Plunkett GASTROENTEROLOGY OPERATIVE REPORT: DATE OF PROCEDURE: 02/12/18 OPERATIVE PROCEDURE: Esophagogastroduodenoscopy to third portion of duodenum. PASTRYCOOK'S ASSISTANT: Marleny Plunkett DO ANESTHESIA: 1. Midazolam 7 mg IV. 2. Fentanyl 100 mcg IV. HISTORY OF PRESENT ILLNESS: Roberta is a pleasant 62-year-old female with a history of alcohol abuse, who presented with mild episode of pancreatitis with intractable nausea, vomiting. Gastroenterology was consulted for further evaluation. PREOPERATIVE DIAGNOSIS: 1. Intractable nausea and vomiting. POSTOPERATIVE DIAGNOSES: 1. Normal-appearing duodenum to the third portion with biopsies. 2. Mild antral gastritis with CLOtest. 3. A 3-cm hiatal hernia. 4. Widely patent nonobstructing Schatzki's ring with biopsies. 5. Regular-appearing gastroesophageal junction at 39 cm from the incisors with biopsies for tissues sampling and to disrupt the ring. 6. Normal-appearing mid and proximal esophagus. RECOMMENDATIONS: 1. We will follow up with path results. 2. Continue PPI therapy daily. 3. Encourage alcohol and tobacco cessation. 4. We will advance the patient's diet to full liquids as tolerated. 5. These findings were discussed with Yadira Vick as well as patient's significant other at bedside. They are in agreement with the plan. Further recommendations will be provided as the patient's clinical course progresses. She should follow up in our office in 2 weeks. DESCRIPTION OF PROCEDURE: Esophagogastroduodenoscopy was explained in detail to the patient. The risks, benefits, complications, alternatives, and possibilities of missed lesions were explained and understood. Complications included, but were not limited to reaction to anesthesia, aspiration, increased risk of bleeding, and perforation. All questions were answered. The patient demonstrated understanding of the conversation and informed consent was obtained. Next, the patient was brought to the endoscopy suite and placed in the left lateral recumbent position where blood pressure, cardiac, and oxygen monitors were applied. The patient was found to be a fit candidate for moderate anesthesia. After adequate IV sedation was achieved, a bite block was placed. Next, a standard adult endoscope was inserted per os under direct visualization to the first, second, and third portion of the duodenum. These areas were grossly unremarkable. Cold forceps biopsies were obtained to rule out celiac disease. Further withdrawal of the endoscope into the gastric lumen reveals very mild erythema in the antrum. A CLOtest was performed to rule out H. pylori. On retroflexion, the patient had a slightly loose gastric cardia sling. Further withdrawal of the endoscope into the distal esophagus revealed a 3-cm hiatal hernia from 42 cm to 39 cm from the incisors. A widely patent, non -obstructing Schatzki's ring was also seen in the distal esophagus. Cold forceps were used to disrupt the ring and obtain biopsies. The rest of the tubular esophagus was normal appearing. Air was then removed from the patient. Endoscope was removed from the patient. The patient tolerated the procedure well. There were no immediate complications. After a period of observation, the patient was transferred back to the medical floor in stable condition. Thank you, Yadira Vick NP for allowing us to participate in the care of your patient. If you should have any further questions or concerns, please do not hesitate to contact us. [id number]/[facility] #: [id number] [place]
--- NOTE | 2018-02-13 22:52 | DS ---
DISCHARGE SUMMARY: DATE OF ADMISSION: 02/11/18 DATE OF DISCHARGE: 02/12/18 PRIMARY CARE PROVIDER: Dr. Hermilo Moon. ATTENDING PHYSICIAN: Dr. Itzel Collazo * (dictated by Yadira Vick NP). PRIMARY DIAGNOSES: 1. Pancreatitis, suspect this is related to alcohol consumption. 2. Mild gastritis, again related to alcohol. SECONDARY DIAGNOSIS: Intractable nausea and vomiting. STUDIES COMPLETED WHILE IN THE HOSPITAL: She had a CT of the abdomen and pelvis on 02/10/18, radiologist's impression: No acute findings, retained stool and diverticula. She had an upper endoscopy on 02/12/18. FINDINGS: 1. Normal-appearing duodenum to the third portion with biopsies. 2. Mild antral gastritis with CLOtest. 3. A 3-cm hiatal hernia. 4. Widely patent nonobstructing Schatzki's ring with biopsies. 5. Regular-appearing gastroesophageal junction at 39 cm from the incisors with biopsies for tissue sampling and to disrupt the ring. 6. Normal-appearing mid and proximal esophagus. DISCHARGE MEDICATIONS: 1. Carafate 1 g 4 times a day x7 days. 2. Omeprazole 20 mg p.o. daily x30 days. There was no previous home medications. HISTORY OF PRESENT ILLNESS AND HOSPITAL COURSE: Ms. Dubose is a 62-year-old female who had 2 previous episodes of intractable nausea and vomiting of unclear etiology, comes in today for the same nausea and vomiting. She carries a history of ovarian cyst, otherwise healthy. She came in complaining of lower quadrant pain that progressively got worse throughout the day in the evening and then started having another episode of nausea and vomiting and could not keep anything down, could not eat or drink. She denied any coffee-ground emesis. She denied any melena or tarry stools. Pain was mostly sharp and stabbing in the left lower quadrant. She has had chills. There has been no other documented fever. She denies any significant weight change because she could not keep anything down. We were asked to evaluate by the Emergency Room. While in the emergency room, she was given several courses of antiemetics with no relief. She had routine lab work drawn, which showed an elevated lipase at 301. Sodium was 136, carbon dioxide was 21, anion gap was 13, glucose was 128, potassium was 3.5. CBC was essentially within normal limits on admission. UA was within normal limits. While in the hospital, the patient had an upper endoscopy, which showed a small hiatal hernia with mild gastritis. There was no evidence of ulcers or esophageal erosion. The patient was started on Carafate and given Tigan as an antiemetic along with some Ativan. The patient's symptoms resolved after this treatment. On the day of discharge, the patient states she has been feeling in her normal state of health. She denies any nausea or vomiting. She is tolerating clear p.o. fluids as well as thickened and solid foods. Her lipase was trended during her hospitalization and trended downward left, lipase was 100. Her potassium on the day of discharge was 3.4. She was given 30 mEq of potassium p.o. prior to discharge. At this time, Ms. Dubose is stable for discharge home. Ms. Dubose will be discharged home. Vital signs are as follows: Temperature was 97.9, heart rate was 62, respirations 16, O2 saturation was 97%, blood pressure 104/63. DISCHARGE PLAN: Ms. Dubose will be discharged home. Activity as tolerated. 1. Pancreatitis. Her lipase was mildly elevated during this hospitalization. The patient was advised to abstain from drinking alcohol as this could be the cause of her increased pancreas irritation. The patient verbalized understanding. The patient will be placed on Carafate 1 g 4 times a day for 7 days. She will continue on omeprazole daily for 30 days. She should follow up with GI in 2 weeks. 2. Mild gastritis. Again, I suspect this is related to alcohol-induced gastritis. The patient was advised not to drink any further alcohol. The patient verbalized understanding. Again, we will continue her on Carafate and omeprazole for gastric healing. She is to follow up with GI in 2 weeks. The patient was instructed to return to the emergency room for any increased chest pain or shortness of breath, nausea or vomiting, unable to keep any food or fluids down or any other emergent health issues. The patient and verbalized understanding. This is summarization of her hospitalization. For further details, please see the entire medical record. TIME SPENT: Time spent on this discharge was approximately 60 minutes, greater than half that time was spent with the patient and discussing discharge plans and instructions. CONDITION ON DISCHARGE: Stable. YADIRA VICK, TR[employer] LINE WORKER [id number]/[facility] #: [id number] [facility] SYSTEM[facility]
[2018-02-14] MEDS ORDERED: Scopolamine PATCH Remove* 1 NOTE MISC PATCH OFF SCH (04:00)
== END 2018-02-12 18:09 | disposition home or self-care (01) ==
LOC: ED 21:27 → MEDTELE 02-11 02:33
PROVIDERS: ADMIT Hospitalist; ATTEND Internal Medicine
DX: K85.20 Alcohol induced acute pancreatitis without necrosis or infection (principal); K29.70 Gastritis, unspecified, without bleeding; R11.2 Nausea with vomiting, unspecified; F17.210 Nicotine dependence, cigarettes, uncomplicated
CPT/HCPCS: 36415; 74177; 80048; 80053; 80307; 80320; 81003; 83605; 83690; 83735; 84443; 84484; 85025; 85610; 85730; 86140; 87077; 87086; 88305; 93005; 96374; 96375; 99156; 99285; A9270-GY; G0378; G0480; J0744; J0780; J1644; J2060; J2250; J2270; J2405; J2765; J3010; J3250; J3490; Q9967

== ENCOUNTER 2018-08-09 07:22 | Observation (INO) | payer BC ==
[2018-08-09] MEDS ORDERED: NS 0.9% 1000 ML* 1,000 ML IV ONE ×3 (07:34→12:01)
[2018-08-09] MEDS ORDERED: Trimethobenzamide IM* 100 MG/ML 2 ml VIAL IM ONE ×2 (07:35→10:13)
[2018-08-09] MEDS ORDERED: LORazepam INJ* 2 MG/ML 1 ML VIAL IV PUSH ONE ×2 (07:35→11:15)
--- NOTE | 2018-08-09 07:38 | ED ---
Nausea/Vomiting/Diarrhea HPI - HPI Summary HPI Summary: Patient is a 63-year-old female with a history of intractable vomiting ( possibly related to ETOH) which has been undiagnosed until several months ago as well as a PMH of ovarian cysts, otherwise an uncomplicated history presenting to the ED this morning with acute nausea vomiting not well controlled at home with home medications. She was last seen in the ED approximately and April for same and was admitted for intractable vomiting. She denies any abdominal pain, constipation or diarrhea. She states she's been otherwise healthy. Patient admits to significant alcohol use, however is been cutting back. is at bedside stating she is drinking approximately 2-3 beers per day. Ever since was diagnosed with the intractable vomiting possibly related to ETOH she has cut back on her alcohol intake, and admits to 2 beers last evening. Vomiting began last night. Alleviated with nothing. Aggravated with nothing. Patient denies any fevers, sweats, chills. - History of Current Complaint Chief Complaint: EDNauseaVomitDiarrh Stated Complaint: NAUSEOUS/VOMITING Time Seen by Provider: 08/09/18 07:29 Hx Obtained From: Patient ?: No Onset/Duration: Sudden Onset Timing: Constant Severity Initially: Moderate Severity Currently: Moderate Pain Intensity: 0 Pain Scale Used: 0-10 Numeric Location: Diffuse Character: Burning Alleviating Factor(s): Nothing Nausea/Vomiting Presence: None Vomiting Frequency: Every 15-60 minutes Nausea/Vomiting Duration: 12-24 hours Diarrhea Presence: No - Risk Factors Influenza Risk Factors: Negative Surgical Obstruction Risk Factor(s): Negative - Allergies/Home Medications Allergies/Adverse Reactions: Allergies Allergy/AdvReac Type Severity Reaction Status Date / Time amoxicillin Allergy Rash And Verified 08/09/18 07:28 Itching clindamycin Allergy Nausea Verified 08/09/18 07:28 PMH/Surg Hx/FS Hx/Imm Hx Previously Healthy: Yes Endocrine/Hematology History: Denies: Hx Anticoagulant Therapy, Hx Diabetes Cardiovascular History: Denies: Hx Angina, Hx Cardiac Arrest, Hx Coronary Artery Disease, Hx Hypertension, Hx Myocardial Infarction Respiratory History: Denies: Hx Asthma, Hx Chronic Bronchitis, Hx Lung Cancer, Hx Pulmonary Embolism GI History: Reports: Hx Diverticulosis History: Denies: Hx Chronic Renal Failure Musculoskeletal History: Denies: Hx Fibromyalgia Sensory History: Reports: Hx Contacts or Glasses Denies: Hx Cataracts, Hx Macular Degeneration, Hx Deafness, Hx Hearing Aid Opthamlomology History: Reports: Hx Contacts or Glasses Denies: Hx Cataracts, Hx Macular Degeneration Neurological History: Denies: Hx Headaches, Hx Seizures, Hx Transient Ischemic Attacks (TIA) Psychiatric History: Denies: Hx Oppositional Bond Disorder, Hx Community Mental Health Tx - Immunization History Hx Pertussis Vaccination: No Immunizations Up to Date: Yes Infectious Disease History: No Infectious Disease History: Denies: Hx Clostridium Difficile, Hx of Known/Suspected MRSA, Hx Known/ Suspected VRE, Traveled Outside the [place] in Last 30 Days - Family History Known Family History: Negative: Cardiac Disease, Hypertension, Diabetes - Social History Occupation: Employed Full-time Lives: With Family Alcohol Use: Occasionally Alcohol Amount: 3 beers Hx Substance Use: No Substance Use Type: Reports: None Hx Tobacco Use: Yes Smoking Status (MU): Light Every Day Tobacco Smoker Review of Systems Negative: Fever, Chills, Fatigue, Skin Diaphoresis Negative: Palpitations, Chest Pain Negative: Shortness Of Breath, Cough Positive: Vomiting, Nausea Genitourinary: Negative Positive: no symptoms reported, see HPI Skin: Negative Neurological: Negative All Other Systems Reviewed And Are Negative: Yes Physical Exam Triage Information Reviewed: Yes Vital Signs On Initial Exam: Initial Vitals Temp Pulse Resp BP Pulse Ox 98.6 F 75 19 132/79 100 08/09/18 07:23 08/09/18 07:23 18 07:23 08/09/18 07:23 08/09/18 07:23 Vital Signs Reviewed: Yes Appearance: Positive: Well-Nourished, Ill-Appearing Skin: Positive: Warm, Skin Color Reflects Adequate Perfusion Neck: Positive: Supple, No Lymphadenopathy Respiratory/Lung Sounds: Positive: Clear to Auscultation, Breath Sounds Present Cardiovascular: Positive: RRR, Pulses are Symmetrical in both Upper and Lower Extremities Musculoskeletal: Positive: Strength/ROM Intact Neurological: Positive: Alert, Oriented to Person Place, Time Psychiatric: Positive: Normal, Affect/Mood Appropriate AVPU Assessment: Alert Diagnostics - Vital Signs Vital Signs Temp Pulse Resp BP Pulse Ox 08/09/18 07:23 98.6 F 75 19 132/79 100 - Laboratory Result Diagrams: 08/09/18 07:51 08/09/18 07:51 Lab Statement: Any lab studies that have been ordered have been reviewed, and results considered in the medical decision making process. Naus/Vom/Diarrhea Course/Dx - Course Course Of Treatment: During the course treatment, the patient is evaluated for intractable vomiting. This is her third visit to the ED for same. She has been admitted in the past. She states the only medications that work for her are Tigan and Ativan together. She states Zofran and Phenergan as well as Compazine did not alleviate her symptoms. is at bedside. She admits to drinking 2 beers last night, however has been cutting back on her alcohol use ever since her diagnosis. She is given Tigan as well as Ativan on arrival. She is later given Phenergan. These are all with good relief. She is given a second liter fluids. She continues to have worsening symptoms and again is given tigan and ativan with compazine. With no effect after 2 hours, patient is admitted. Discussed with Dr. Pearson for admission for intractable vomiting. - Differential Dx/Diagnosis Differential Diagnoses - Female: Other - Cyclic vomiting syndrome, alcohol WD, viral syndrome Provider Diagnoses: Intractable vomiting Condition At Discharge: Stable Discharge - Sign-Out/Discharge Documenting (check all that apply): Patient Departure All imaging exams completed and their final reports reviewed: Yes - Discharge Plan Condition: Stable Disposition: ADMITTED TO [facility] - Billing Disposition and Condition Condition: STABLE Disposition: Admitted to [facility]
[2018-08-09] MEDS ORDERED: PROCHLORPERAZINE INJ 5 MG/ML 2 ML VIAL IV ONE (08:10)
[2018-08-09 08:17] LABS: EGFR Non-African American 72.7 (>60)
[2018-08-09 08:26] LABS: ABS Basophils 0 10^3/ul (0-0.2); ABS Eosinophils 0 10^3/ul (0-0.6); ABS Lymphocytes 1.1 10^3/ul (1.0-4.8); ABS Monocytes 0.1 10^3/ul (0-0.8); ABS Neutrophils 5.1 10^3/ul (1.5-7.7); ABS Nucleated RBC 0 10^3/ul; Eosinophil % 0.2 % (0-6); Hematocrit 41 % (35-47); Lymphocyte % 16.9 % (25-47); Mean Corpuscular HGB Conc 35 g/dl (31-36); Mean Corpuscular Hemoglobin 32 pg (27-31); Mean Corpuscular Volume 93 fL (80-97); Mean Platelet Volume 9.7 fL (7.4-10.4); Nucleated Red Blood Cells % 0; Platelet Count 281 10^3/ul (150-450); Red Blood Count 4.36 10^6/ul (4.00-5.40); Red Cell Distribution Width 13 % (10.5-15); White Blood Count 6.3 10^3/ul (3.5-10.8)
[2018-08-09] MEDS ORDERED: Meclizine TAB* 12.5 MG PO ONE (09:28)
[2018-08-09 13:01] LABS: Urine Appearance Clear; Urine Blood 1+ (Negative); Urine Color Straw; Urine Ketones Negative (Negative); Urine Protein Negative (Negative); Urine Red Blood Cell Trace(0-2/hpf) (Absent); Urine Specific Gravity 1.003 (1.010-1.030); Urine Urobilinogen Negative (Negative); Urine White Blood Cell Trace(0-5/hpf) (Absent)
[2018-08-09] MEDS ORDERED: Temazepam CAP* 15 MG PO PRN (13:58)
[2018-08-09] MEDS ORDERED: Acetaminophen TAB* 325 MG PO PRN (13:58)
[2018-08-09] MEDS ORDERED: Morphine VIAL* 4 MG/ML VIAL (1 ml vial) IV PRN (13:58)
[2018-08-09] MEDS ORDERED: LORazepam INJ* 2 MG/ML 1 ML VIAL IV PUSH PRN (14:01)
[2018-08-09] MEDS ORDERED: Scopolamine 1.5 mg* PATCH TRANSDERM SCH (15:00)
[2018-08-09] MEDS: NS 0.9% 1000 ML* 1,000 ML IV SCH (15:39)
[2018-08-09] MEDS: PROCHLORPERAZINE INJ 5 MG/ML 2 ML VIAL IV PRN ×2 (15:39→21:21)
[2018-08-09] MEDS: Heparin VIAL(*) 5000 UNITS/ML VIAL (FIVE THOUSAND) SUBCUT SCH ×2 (15:40→20:13)
[2018-08-09] MEDS: Pantoprazole IV* 40 MG IV SCH (15:40)
--- NOTE | 2018-08-09 17:26 | HP ---
CC: [facility] * HISTORY AND PHYSICAL: DATE OF ADMISSION: 08/09/18 PRIMARY CARE PROVIDER: Dr. Troy Moon, [place], [place]. CHIEF COMPLAINT: Intractable nausea and vomiting. HISTORY OF PRESENT ILLNESS: Florecita Dubose is a 63-year-old female with history of recurrent intractable nausea and vomiting. From her medical records, it appears that she was admitted 4 times in the past 14 months. Last time, in April of 2014, she had an upper endoscopy and colonoscopy, which showed moderate erosive changes at the GE junction, as well as tubular adenoma and hyperplastic polyp on colonoscopy. The patient presented to the hospital complaining of 12 hours of nausea and vomiting. Currently, she is sedated after receiving lorazepam. In addition to lorazepam, she received a multiple doses of antiemetics and spent 6 hours in the Emergency Department, still complaining of nausea and vomiting. She is going to be placed on overnight observation. PAST MEDICAL HISTORY: 1. History of recurrent intractable nausea and vomiting. 2. Ovarian cyst. 3. History of alcohol use. The patient quit drinking alcohol few months ago. HOME MEDICATIONS: Include: 1. Tigan 300 mg every 6 hours p.r.n. 2. Lorazepam 1 mg every 8 hours p.r.n. ALLERGIES: AMOXICILLIN and CLINDAMYCIN. FAMILY HISTORY: Positive for mother with Parkinson's and father with bladder cancer. SOCIAL HISTORY: The patient has a history of 1-pack per week of cigarettes. She used to drink a several beers a night, but she quit. Her surrogate decision maker is her male partner, James. REVIEW OF SYSTEMS: Unobtainable from the patient who was sedated. As per James , who was present in the patient's room, stated that the patient had been retching for the past 12 hours. The patient denies any abdominal pain. Since her last admission in April of 2018, she had a been asymptomatic. She denies any headache or fevers. All the remaining 12 systems were reviewed with the patient and the patient's significant other, who was present in the room. It was very limited due to the patient's lethargy and were otherwise negative. PHYSICAL EXAMINATION GENERAL: The patient is a very pleasant 63-year-old female, who is lethargic, but in no acute distress. The patient is arousable, oriented x2 when awake. VITAL SIGNS: Blood pressure of 132/88, heart rate of 78 and regular, respiratory rate of 12, oxygen saturation 97% on room air, temperature of 98.6. HEENT: Head: Atraumatic, normocephalic. Eyes: Pupils are equal and reactive to light and accommodation. Oropharynx with dry mucosa. NECK: Supple. No JVD. No bruit bilaterally. RESPIRATORY: Clear to auscultation bilaterally. CARDIOVASCULAR: Regular rate and rhythm. No murmur. ABDOMEN: Soft, nontender. Bowel sounds present in all 4 quadrants. EXTREMITIES: There is no edema. Pulses are +2 bilaterally. There is no clubbing or cyanosis. NEUROLOGIC EVALUATION: Speech is clear. Cranial nerves II through XII are grossly intact. Motor strength is 5/5 bilaterally. LABORATORY DATA: Showed sodium of 136, potassium 3.9, chloride 103, carbon dioxide 22, BUN 11, creatinine 0.8. Liver function tests were unremarkable. Glucose level random was 178. White blood cell count 6.3, hemoglobin 14.0, hematocrit of 41, and platelets of 281. Serum alcohol level below undetectable. ASSESSMENT AND PLAN: 1. Intractable nausea and vomiting. The patient has a history of intractable nausea and vomiting for over a year now. Her current hospital stay with so far negative workup. The patient is going to be placed on overnight observation, intravenous fluid, antiemetics and lorazepam. 2. For DVT prophylaxis. The patient is going to placed on heparin subcutaneously. 3. The patient's code status is full and her surrogate is her male partner, James Carrasco. TIME SPENT: Approximately 52 minutes was spent on history and physical taking of this patient, more than half that time was spent [id number] with the patient and the patient's partner. [id number]/[facility] #: [id number] [facility]
[2018-08-10] MEDS: PROCHLORPERAZINE INJ 5 MG/ML 2 ML VIAL IV PRN (03:13)
[2018-08-10] MEDS: NS 0.9% 1000 ML* 1,000 ML IV SCH (05:02)
[2018-08-10] MEDS ORDERED: Omeprazole CAP* 20 MG PO ONE (05:07)
[2018-08-10] MEDS: Heparin VIAL(*) 5000 UNITS/ML VIAL (FIVE THOUSAND) SUBCUT SCH (05:29)
[2018-08-10] MEDS: Pantoprazole IV* 40 MG IV SCH (09:16)
[2018-08-10 11:34] VITALS: BP 108/55
--- NOTE | 2018-08-11 10:32 | DS ---
CC: Dr. Moon * DISCHARGE SUMMARY: DATE OF ADMISSION: 08/09/18 DATE OF DISCHARGE: 08/10/18 PRIMARY CARE PROVIDER: Dr. Moon, [place] PRINCIPAL DIAGNOSIS: Intractable nausea and vomiting. SECONDARY DIAGNOSIS: History of alcohol abuse - the patient reports drinking beer again. DISCHARGE MEDICATIONS: 1. Zofran ODT 4 mg p.o. q.6 hours p.r.n. nausea. 2. Phenergan suppository 25 mg p.r. q.4 hours p.r.n. nausea. HOSPITAL COURSE: Ms. Dubose is a 63-year-old female who has a history of episodes of recurrent intractable nausea and vomiting. The patient presented to the emergency room on 08/09/18 in the morning with complaints of nausea and vomiting. This had been going on for approximately 12 hours prior to her presentation. She received Ativan in the emergency room and with this she became somewhat sedated. She also received several doses of antiemetics and despite this, she still complained of nausea and vomiting. The patient was admitted to observation status overnight. She received IV fluids and Protonix as well as scopolamine patch and Compazine. With this, her nausea and vomiting had completely resolved by the morning of 08/10/18. The patient tolerated a clear liquid diet without any difficulty. She was wanting to advance her diet to regular. She ultimately felt that she was ready for discharge home. She requests dissolvable Zofran as well as any other potential antiemetics that she could use at home if she were to develop this again. We discussed utilizing Phenergan suppository and she was willing to try this. At this point, the patient is stable for discharge home. On the day of discharge, the patient is awake, alert, and oriented, sitting up in bed, in no acute distress. Her vital signs are stable. She is afebrile. Her cardiac exam reveals a normal S1, S2 with a regular rate and rhythm. Her lungs are clear. Her abdomen is soft, nontender, nondistended. She moves all 4 extremities symmetrically. FOLLOWUP CONCERNS: The patient is being discharged home today, 08/10/18. ACTIVITY LEVEL: As tolerated. DIET: Regular as tolerated. CONDITION ON DISCHARGE: Stable. TIME SPENT: Twenty five minutes was spent discharging this patient. [id number]/[facility] #: [id number] [place]
[2018-08-12] MEDS ORDERED: Scopolamine PATCH Remove* 1 NOTE MISC PATCH OFF SCH (15:00)
== END 2018-08-10 13:35 | disposition home or self-care (01) ==
LOC: ED 07:22 → MED 14:11
PROVIDERS: ADMIT Internal Medicine; ATTEND Hospitalist
DX: R11.2 Nausea with vomiting, unspecified (principal); F10.21 Alcohol dependence, in remission; N83.209 Unspecified ovarian cyst, unspecified side; Z88.0 Allergy status to penicillin; F17.210 Nicotine dependence, cigarettes, uncomplicated
CPT/HCPCS: 36415; 80053; 80320; 81003; 81015; 83605; 83690; 83735; 85025; 86140; 87086; 96361; 96372; 96375; 99284; A9270-GY; G0378; G0480; J0780; J2060; J3250

== ENCOUNTER 2018-08-14 01:10 | Observation (INO) | payer BC ==
[2018-08-14] MEDS ORDERED: Metoclopramide IV* 5 MG/ML 2 ML VIAL IV ONE (03:44)
[2018-08-14] MEDS ORDERED: Ketorolac INJ* 30 MG/ML 1 ML VIAL IV ONE (03:44)
[2018-08-14] MEDS ORDERED: Famotidine IV* 10 MG/ML 2 ML (20 mg) IV ONE (03:44)
[2018-08-14] MEDS ORDERED: diPHENhydraMINE PO* 25 MG PO ONE (03:45)
[2018-08-14] MEDS ORDERED: LORazepam INJ* 2 MG/ML 1 ML VIAL IV PUSH ONE ×2 (03:45→05:40)
--- NOTE | 2018-08-14 03:58 | ED ---
Abdominal Pain/Female - HPI Summary HPI Summary: Pt is a 63 y/o F presenting to the ED with a chief complaint of nausea and vomiting. The pt was here last week for the same thing and was diagnosed with cyclic vomiting syndrome, the medicine they gave did not help. - History of Current Complaint Chief Complaint: EDNauseaVomitDiarrh Stated Complaint: VOMITING Time Seen by Provider: 08/14/18 03:39 Hx Obtained From: Patient Onset/Duration: Lasting Days, Still Present Timing: Frequency Of Episodes - infrequent, last episode before last week was in February Severity Initially: Moderate Severity Currently: Moderate Pain Intensity: 0 Pain Scale Used: 0-10 Numeric Character: Not Applicable Aggravating Factor(s): Food Alleviating Factor(s): Nothing Associated Signs and Symptoms: Positive: Nausea, Vomiting, Diarrhea Allergies/Adverse Reactions: Allergies Allergy/AdvReac Type Severity Reaction Status Date / Time amoxicillin Allergy Rash And Verified 08/09/18 07:28 Itching clindamycin Allergy Nausea Verified 08/09/18 07:28 codeine AdvReac Nausea And Verified 08/14/18 01:20 Vomiting PMH/Surg Hx/FS Hx/Imm Hx Previously Healthy: No Endocrine/Hematology History: Denies: Hx Anticoagulant Therapy, Hx Diabetes Cardiovascular History: Denies: Hx Angina, Hx Cardiac Arrest, Hx Coronary Artery Disease, Hx Hypertension, Hx Myocardial Infarction Respiratory History: Denies: Hx Asthma, Hx Chronic Bronchitis, Hx Lung Cancer, Hx Pulmonary Embolism GI History: Reports: Hx Diverticulosis, Other GI Disorders - cyclic vomiting syndrome History: Denies: Hx Chronic Renal Failure Musculoskeletal History: Denies: Hx Fibromyalgia Sensory History: Reports: Hx Contacts or Glasses Denies: Hx Cataracts, Hx Macular Degeneration, Hx Deafness, Hx Hearing Aid Opthamlomology History: Reports: Hx Contacts or Glasses Denies: Hx Cataracts, Hx Macular Degeneration Neurological History: Denies: Hx Headaches, Hx Seizures, Hx Transient Ischemic Attacks (TIA) Psychiatric History: Denies: Hx Oppositional [place] Disorder, Hx Community Mental Health Tx Infectious Disease History: No Infectious Disease History: Denies: Hx Clostridium Difficile, Hx of Known/Suspected MRSA, Hx Known/ Suspected VRE, Traveled Outside the US in Last 30 Days - Family History Known Family History: Negative: Cardiac Disease, Hypertension, Diabetes - Social History Alcohol Use: Occasionally Alcohol Amount: 3 beers Hx Substance Use: No Substance Use Type: Reports: None Hx Tobacco Use: Yes Smoking Status (MU): Light Every Day Tobacco Smoker Review of Systems Negative: Fever Positive: Vomiting, Diarrhea, Nausea All Other Systems Reviewed And Are Negative: Yes Physical Exam - Summary Physical Exam Summary: VITAL SIGNS: Reviewed. GENERAL: Patient is a well-developed and nourished female who is lying comfortable in the stretcher. Patient is not in any acute respiratory distress. Patient is actively vomiting. HEAD AND FACE: No signs of trauma. No ecchymosis, hematomas or skull depressions. No sinus tenderness. EYES: PERRLA, EOMI x 2, No injected conjunctiva, no nystagmus. EARS: Hearing grossly intact. Ear canals and tympanic membranes are within normal limits. MOUTH: Oropharynx within normal limits. NECK: Supple, trachea is midline, no adenopathy, no JVD, no carotid bruit, no c- spine tenderness, neck with full ROM. CHEST: Symmetric, no tenderness at palpation LUNGS: Clear to auscultation bilaterally. No wheezing or crackles. CVS: Regular rate and rhythm, S1 and S2 present, no murmurs or gallops appreciated. ABDOMEN: Soft, non-tender. No signs of distention. No rebound no guarding, and no masses palpated. Hyperactive bowel sounds. EXTREMITIES: FROM in all major joints, no edema, no cyanosis or clubbing. NEURO: Alert and oriented x 3. No acute neurological deficits. Speech is normal and follows commands. SKIN: Dry and warm Triage Information Reviewed: Yes Vital Signs On Initial Exam: Initial Vitals Temp Pulse Resp BP Pulse Ox 97.6 F 64 16 136/91 98 08/14/18 01:10 08/14/18 01:10 08/14/18 01:10 08/14/18 01:10 08/14/18 01:10 Vital Signs Reviewed: Yes Diagnostics - Vital Signs Vital Signs Temp Pulse Resp BP Pulse Ox 08/14/18 01:10 97.6 F 64 16 136/91 98 - Laboratory Result Diagrams: 08/14/18 03:56 08/14/18 03:56 Lab Statement: Any lab studies that have been ordered have been reviewed, and results considered in the medical decision making process. Re-Evaluation - Re-Evaluation 1 Re-Evaluation Time: 05:35 Change: Unchanged Comment: Pt still nauseous. Per , she falls asleep and then later wakes up dry heaving. 2 Re-Evaluation Time: 06:34 Change: Unchanged Comment: Pt, despite medications, is still nauseous and vomiting. Pt will be admitted to the hospital for further evaluation. Abdominal Pain Fem Course/Dx - Course Course Of Treatment: Pt is a 63 y/o F presenting to the ED due to vomiting and nausea. Pt was here last week, left on 08/10/2018 with a dx of cyclic vomiting syndrome. She was given zofran and it only aggravated it. - Diagnoses Provider Diagnoses: Gastroenteritis, Cyclical vomiting syndrome Discharge - Sign-Out/Discharge Documenting (check all that apply): Patient Departure - admit - Discharge Plan Condition: Stable Disposition: ADMITTED TO [facility] Referrals: Sarai SANCHEZ,Troy Pineda [Primary Care Provider] - - Attestation Statements Document Initiated by Scribe: Yes Documenting Scribe: Ana Doe Provider For Whom Scribe is Documenting (Include Credential): Nasima Clayton MD. Scribe Attestation: IAna, scribed for Nasima Clayton MD. on 08/14/18 at 0637. Consult Consult: [id number] - Spoke with the hospitalist about pt's current condition, she will be admitted.
[2018-08-14 04:02] LABS: ABS Basophils 0 10^3/ul (0-0.2); ABS Eosinophils 0 10^3/ul (0-0.6); ABS Lymphocytes 0.7 10^3/ul (1.0-4.8); ABS Monocytes 0.1 10^3/ul (0-0.8); ABS Neutrophils 6.5 10^3/ul (1.5-7.7); ABS Nucleated RBC 0 10^3/ul; Eosinophil % 0 % (0-6); Hematocrit 39 % (35-47); Hemoglobin 13.6 g/dl (12.0-16.0); Lymphocyte % 9.5 % (25-47); Mean Corpuscular HGB Conc 35 g/dl (31-36); Mean Corpuscular Hemoglobin 32 pg (27-31); Mean Corpuscular Volume 93 fL (80-97); Mean Platelet Volume 8.9 fL (7.4-10.4); Nucleated Red Blood Cells % 0; Platelet Count 272 10^3/ul (150-450); Red Blood Count 4.22 10^6/ul (4.00-5.40); Red Cell Distribution Width 12 % (10.5-15); White Blood Count 7.4 10^3/ul (3.5-10.8)
[2018-08-14] MEDS: NS 0.9% 1000 ML* 2,000 ML IV ONE (04:07)
[2018-08-14 04:14] LABS: INR 1.04 (0.77-1.02)
[2018-08-14 04:20] LABS: EGFR Non-African American 60.3 (>60)
[2018-08-14] MEDS ORDERED: Ondansetron INJ* 2 MG/ML VIAL IV ONE (05:14)
[2018-08-14] MEDS ORDERED: Ondansetron INJ* 2 MG/ML VIAL IV PRN (07:47)
[2018-08-14] MEDS ORDERED: Trimethobenzamide IM* 100 MG/ML 2 ml VIAL IM PRN (07:48)
[2018-08-14] MEDS ORDERED: Trimethobenzamide IM* 100 MG/ML 2 ml VIAL IM ONE (07:54)
[2018-08-14] MEDS ORDERED: Morphine INJ* 2 MG/ML 1 ML SYRINGE (TWO MG - NEW SYRINGE VERSION) IV PRN (08:03)
[2018-08-14] MEDS: Pantoprazole IV* 40 MG IV SCH (10:07)
[2018-08-14] MEDS: NS 0.9% 1000 ML* 1,000 ML IV SCH ×2 (10:07→20:47)
[2018-08-14] MEDS: PROCHLORPERAZINE INJ 5 MG/ML 2 ML VIAL IV PRN ×2 (10:07→17:15)
--- NOTE | 2018-08-14 12:56 | HP ---
CC: Fidencio Garcia [place]; Margarita Vasques MD HISTORY AND PHYSICAL: DATE OF ADMISSION: 08/14/18 TIME OF EVALUATION: 7:30 a.m. PRIMARY CARE PROVIDER: Fidencio Garcia [place]. CONSULTING WOOD WEB WEAVING MACHINE OPERATOR: Margarita Vasques MD. CHIEF COMPLAINT: Nausea and vomiting. HISTORY OF PRESENT ILLNESS: Ms. Dubose is a 63-year-old lady with past medical history of alcohol use, ovarian cyst, admission for recurrent nausea and vomiting, who presented to the emergency room with another bout of multiple episodes of nausea and vomiting. At the time of my interview, the patient said that she was very tired as she was not able to sleep last night and most of her history is obtained from her significant other (Mr. James Carrasco) at bedside. The patient has had multiple admissions with vomiting and diarrhea going back to October 2017. The last admission was on 08/09/18, when the patient presented with recurrent nausea and vomiting with no precipitating factors. She was kept in observation overnight, had symptomatic improvement and was discharged home with prescription for Zofran ODT and Phenergan suppository. As per , the patient was feeling well when she was discharged and had a very good day yesterday. She was able to play around with her grand kids. She ate well with no complaints of nausea, but last night around 10, he woke up with the sounds of the patient retching in the bathroom. She also had some diarrhea. They tried the Zofran ODT and that she had no improvement in her symptoms, they decided to come to the emergency room. There is no fever, no chest pain, palpitation, shortness of breath, no sick contacts. Her said there was no significant change to her diet. As a part of her workup on her prior admissions, the patient had an upper endoscopy done in February 2018 that showed normal appearing duodenum, mild enterogastritis, 3 cm hiatal hernia, widely patent nonobstructing Schatzki ring , normal appearing mid and proximal esophagus. At that point, Dr. Plunkett had recommended PPI therapy daily and encouraged alcohol and tobacco cessation. On another admission in April, the patient had a colonoscopy that showed a 3 mm sessile sigmoid polyp status post polypectomy with pathology revealing a tubular adenoma with no high grade dysphagia or malignancy and another one was a hyperplastic polyp. Colonoscopy also showed sigmoid diverticulosis, small nonbleeding internal hemorrhoids, but the prep was poor so the recommendation was for a repeat screening colonoscopy in 3 years. PAST MEDICAL HISTORY: 1. Recurrent intractable nausea and vomiting as above, possible cyclic vomiting syndrome. 2. Ovarian cyst. 3. History of alcohol use. MEDICATION LIST: None. ALLERGIES: With AMOXICILLIN the patient had rash and itching, with CLINDAMYCIN and CODEINE, she had nausea and vomiting. FAMILY HISTORY: Her mother had a history of Parkinson's and father bladder cancer. SOCIAL HISTORY: The patient has a history of smoking 1-pack per week. She used to drink several beers a night, but she has quit. Surrogate decision maker is her significant other, James Carrasco, phone number is [phone]. REVIEW OF SYSTEMS: I am unable to obtain at this point as the patient is very tired, but all the pertinent negative and positive findings I was able to obtain from her significant other are in the HPI. PHYSICAL EXAMINATION GENERAL: The patient is a pleasant lady, lying on the ED stretcher appears to be very tired, but she is not in acute distress. VITAL SIGNS: Temperature 97.6, heart rate is 63, respiratory rate 20, oxygen saturation is 98% on room air, blood pressure is 130/85. HEENT: Pupils are equal. Dry mucous membranes. CHEST: Breath sounds bilaterally with no added sounds. CVS: Normal S1 and S2. Regular rate and rhythm. ABDOMEN: Soft with mild epigastric tenderness. No guarding, no rebound. Bowel sounds are present. EXTREMITIES: No edema. NEUROLOGIC: She is alert and oriented x3. Able to move all 4 extremities. Appears to be very tired and requests to be able to sleep. DIAGNOSTIC STUDIES/LAB DATA: The patient had a CBC that showed WBC of 7.4, hemoglobin of 13.6, hematocrit of 39, and platelets of 272 with 88% neutrophils. INR is 1.04. Chemistry showed a sodium of 138, potassium 3.7, chloride of 103, bicarb of 24, BUN of 14, creatinine of 0.94, glucose of 186, lactic acid of 2, calcium 9.4, magnesium 2.1. LFTs are normal. Amylase 37, lipase 33. ASSESSMENT AND PLAN: Ms. Dubose is a 63-year-old lady with past medical history of recurrent nausea and vomiting, ovarian cyst, prior history of alcohol use, who presents to the emergency room with the 5th episode of recurrent nausea and vomiting. 1. Intractable nausea and vomiting. No specific precipitating factors at this time. The patient may have cyclic vomiting syndrome. I am going to check the urine toxicology. She will be admitted under observation to medical floor and she will receive some antibiotic treatment with Compazine, Zofran. The patient' s states that on prior admission, the patient responded well to Tigan and we are going to try that too. During my interview, the patient was not vomiting, but she did have episodes of dry heaving. I am going to continue PPI and I requested a consultation with GI. 2. DVT prophylaxis. The patient has a score of 2 on DVT prophylaxis risk assessment guide and she will be started on subcutaneous heparin. 3. Code status is full. TIME SPENT: Approximately 50 minutes was spent with the patient, reviewing medical records, reviewing physical examination to complete this admission, more than half of this time was spent [id number] with the patient and coordination of care. [id number]/[facility] #: [id number] [place]
[2018-08-14 13:26] LABS: Urine Appearance Clear; Urine Blood Negative (Negative); Urine Color Yellow; Urine Ketones 2+ (Negative); Urine Protein Negative (Negative); Urine Specific Gravity 1.015 (1.010-1.030); Urine Urobilinogen Negative (Negative)
[2018-08-14] MEDS: Heparin VIAL(*) 5000 UNITS/ML VIAL (FIVE THOUSAND) SUBCUT SCH ×2 (14:26→22:36)
--- NOTE | 2018-08-14 19:12 | CONS ---
CONSULT REPORT: DATE OF CONSULT: 08/14/2018 REQUESTING PHYSICIAN: Dr. Madrid. REASON FOR CONSULT: Nausea, vomiting, concern for cyclic vomiting syndrome. HISTORY OF PRESENT ILLNESS: Ms. Dubose is a 63-year-old woman with history of admission on several occasions to [facility] with intractable nausea and vomiting and a prior episode of pancreatitis, who is admitted to [facility] with recurrent episode of intractable nausea and vomiting. To review, Ms. Dubose was hospitalized in October 2016 with intractable nausea and vomiting. She was hospitalized with similar symptoms in February 2018. At that time, she was noted to have an elevated lipase in the 300. She was drinking at that time, so alcohol was felt to be the cause of the pancreatitis. An EGD during that admission noted a normal duodenum, mild antral gastritis with a negative CLOtest, hiatal hernia, non-obstructive Schatzki ring destructive with biopsy forceps. Esophagus was normal. Biopsies from that EGD demonstrated a normal duodenum without evidence of celiac disease. The GE junction was notable for moderate erosive changes. CT scan demonstrated a small amount of stool throughout the colon and diverticulosis, but otherwise described a normal pancreas. The patient was then seen in followup in clinic in March. She had been placed on a daily PPI, but she had decreased it to every other day at the time of that visit. She was scheduled for a colonoscopy, which was performed in April 2018. Colonoscopy was notable for poor prep. She had a 3 mm sessile sigmoid polyp that was removed. She was also noted to have sigmoid diverticulosis. Pathology from the polyp was consistent with a tubular adenoma. Repeat colonoscopy recommended at 3 years. The patient was then admitted last week on 08/09/18 and discharged the following day. She presented to the ER at that time with recurrent episode of nausea, vomiting, which she said was similar to the prior episodes. She was given IV fluids, Protonix, Compazine, and scopolamine patch. Her symptoms resolved and she was able to advance her diet. She was discharged on Zofran ODT and Phenergan suppository PRN. The patient went home and was with her grandchildren and felt well on and Wednesday. She then developed recurrent symptoms yesterday evening with acute onset of nausea and intractable vomiting. She apparently also had diarrhea several times, which is not typical for these episodes. GI consulted. On interview, Ms. Dubose is quite sleepy and only answers a few questions before drifting back off to sleep. She states that she is finally feeling a bit better with the medications she has received. She states this is the 5th episode that she has had of the exact same symptoms. She states that she feels well between episodes. She then falls asleep and was unable to provide any other history, though her fills in the rest of the information. He states that she is barely drinking any alcohol, although she had a beer or so within the last week or two. He has noted that the episodes typically last 48 hours or so before she feels better. She does not have any history of migraines or headaches. He is not aware of anyone in the family having migraines or headaches. He states that she does not smoke any marijuana at all. PAST MEDICAL HISTORY: 1. The episodes of intractable nausea and vomiting as above. 2. History of pancreatitis secondary to alcohol in February 2018. 3. Ovarian cyst status post removal. MEDICATIONS: None. ALLERGIES: AMOXICILLIN, CLINDA. FAMILY HISTORY: Mother had Parkinson's. Father had bladder cancer. No family history of migraines. No family history of GI or liver disease. SOCIAL HISTORY: The patient is not currently working. Lives with her . Smokes a pack of cigarettes per week. Not drinking any significant alcohol any longer per her , although it does not appear that she is 100% abstinent as he mentions her having a beer or so recently. REVIEW OF SYSTEMS: 12 point review of systems negative except as above. PHYSICAL EXAM: Vital Signs: Temp 100 on several occasions as the T-max, heart rate in the 50s to 60s, blood pressure 130s to 140s systolic, 97% to 100% on room air. General: The patient is very sleepy and sleeps through most of the interview. She wakes up at one point during the interview to sit up and lean over the emesis basin, but then she falls asleep without having any vomiting or retching. HEENT: Anicteric sclerae. Mucous membranes are moist. Cardiovascular: Regular rate and rhythm. No murmurs, rubs, or gallops. Lungs: Clear to auscultation. Breathing comfortably. Abdomen: Soft, nontender, nondistended. Extremities: Warm and well perfused. No edema. Neuro: A and O x3, although the patient is quite somnolent. DIAGNOSTIC STUDIES/LAB DATA: Labs reviewed. The patient has a normal white count and hematocrit, platelet count, and INR. Renal function is normal. Lactic acid is not elevated. LFT panel is normal. CRP is not elevated. Amylase and lipase are within normal limits. Tox screen is negative. No recent imaging. Prior EGD and colonoscopy summarized in HPI. IMPRESSION AND RECOMMENDATIONS: Ms. Dubose is a 63-year-old woman with a history of recurrent episodic intractable nausea and vomiting, prior episode of alcohol- related pancreatitis in February 2018, and tobacco use, who presents to the ER with recurrent intractable nausea and vomiting several days after being discharged with the same symptoms. We reviewed with the patient and her that a diagnosis of cyclic vomiting syndrome is very uncommon. The diagnostic criteria are relatively strict for this condition. Patient has had several episodes of nausea/vomiting without clear explanation, but she was noted to have an elevated lipase in 2017 consistent with acute pancreatitis. Additionally, there must be at least one week between episodes. Patient had only two days between last week's admission and current presentation. At this point, I remain a bit hesitant to label her with cyclic vomiting syndrome for these several reasons. This being said, there is no clear etiology to the recurrent symptoms for these two recent admissions. An infectious process is considered given her low-grade temp (T 100 this admission at several points) and acute diarrhea, which has now seemed to have improved. Esophagitis, gastritis or PUD also on differential. Patient underwent an EGD during the 02/2018 admission and was noted to have erosive changes at GE junction suggestive of reflux on biopsy. - NPO for now. Consider clears as the patient's symptoms started to improve. - Continue PPI IV daily. - Continue antiemetics and IV fluids per primary team. - GI to assess tomorrow and consider repeating EGD tomorrow. - Sending stool studies if the patient has continued diarrhea to evaluate for infectious cause. - Consider gastric emptying study - The patient should have followup in GI clinic. Further discussion can be had regarding the potential diagnosis of cyclic vomiting syndrome if workup is otherwise negative. One option for prophylactic therapy is use of a tricyclic antidepressant. Thank you for this consult. [id number]/[facility] #: [id number] [facility] H[facility]PITALDaren
[2018-08-15] MEDS: Heparin VIAL(*) 5000 UNITS/ML VIAL (FIVE THOUSAND) SUBCUT SCH ×3 (05:49→20:00)
[2018-08-15] MEDS ORDERED: Acetaminophen TAB* 325 MG PO PRN (06:42)
[2018-08-15] MEDS: Pantoprazole IV* 40 MG IV SCH (08:08)
[2018-08-15] MEDS: NS 0.9% 1000 ML* 1,000 ML IV SCH ×2 (08:13→22:06)
[2018-08-15 08:14] LABS: ABS Basophils 0 10^3/ul (0-0.2); ABS Eosinophils 0 10^3/ul (0-0.6); ABS Lymphocytes 2.5 10^3/ul (1.0-4.8); ABS Monocytes 0.5 10^3/ul (0-0.8); ABS Nucleated RBC 0 10^3/ul; Eosinophil % 0.5 % (0-6); Hematocrit 31 % (35-47); Hemoglobin 10.8 g/dl (12.0-16.0); Lymphocyte % 40.7 % (25-47); Mean Corpuscular HGB Conc 35 g/dl (31-36); Mean Corpuscular Hemoglobin 33 pg (27-31); Mean Corpuscular Volume 94 fL (80-97); Mean Platelet Volume 9.4 fL (7.4-10.4); Nucleated Red Blood Cells % 0.1; Platelet Count 183 10^3/ul (150-450); Red Blood Count 3.32 10^6/ul (4.00-5.40); Red Cell Distribution Width 13 % (10.5-15); White Blood Count 6.1 10^3/ul (3.5-10.8)
[2018-08-15 08:29] LABS: EGFR Non-African American 74.8 (>60)
--- NOTE | 2018-08-15 13:07 | PN ---
Subjective Date of Service: 08/15/18 Interval History: HOSPITALIST PROGRESS NOTE Patient seen and examined at bedside. Care reviewed and d/w Rima Tavarez RN. She feels improved today. Nausea is almost resolved, denies epigastric pain, and had no further episodes of diarrhea. Family History: Unchanged from Admission Social History: Unchanged from Admission Past Medical History: Unchanged from Admission Objective Active Medications: Acetaminophen (Tylenol Tab*) 650 mg PO Q4H PRN PRN Reason: PAIN Last Admin: 08/15/18 08:08 Dose: 650 mg Heparin Sodium (Porcine) (Heparin Vial(*)) 5,000 units SUBCUT Q8HR [facility] Last Admin: 08/15/18 05:49 Dose: 5,000 units Sodium Chloride (Ns 0.9% 1000 Ml*) 1,000 mls @ 100 mls/hr IV PER RATE [facility] Last Admin: 08/15/18 08:13 Dose: 100 mls/hr Morphine Sulfate (Morphine Inj ((Syringe))*) 1 mg IV Q1H PRN PRN Reason: SEVERE PAIN Ondansetron HCl (Zofran Inj*) 4 mg IV Q6H PRN PRN Reason: NAUSEA Pantoprazole Sodium (Protonix Iv*) 40 mg IV DAILY [facility] Last Admin: 08/15/18 08:08 Dose: 40 mg Prochlorperazine Edisylate (Compazine Inj*) 5 mg IV Q6H PRN PRN Reason: NAUSEA/VOMITING Last Admin: 08/14/18 17:15 Dose: 5 mg Trimethobenzamide HCl (Tigan Im*) 200 mg IM Q8H PRN PRN Reason: NAUSEA Vital Signs - 8 hr 08/15/18 08/15/18 05:50 11:03 Temperature 98.2 F 97.3 F Pulse Rate 58 57 Respiratory 18 17 Rate Blood Pressure 117/66 102/65 (mmHg) O2 Sat by Pulse 99 96 Oximetry Oxygen Devices in Use Now: None Appearance: Pleasant lady sitting up in bed in NAD. Eyes: No Scleral Icterus Ears/Nose/Mouth/Throat: Mucous Membranes Moist Neck: Trachea Midline Respiratory: Symmetrical Chest Expansion and Respiratory Effort, Clear to Auscultation Cardiovascular: NL Sounds; No Murmurs; No JVD, RRR Abdominal: NL Sounds; No Tenderness; No Distention Extremities: No Edema Neurological: Alert and Oriented x 3, NL Muscle Strength and Tone Result Diagrams: 08/15/18 07:58 08/15/18 07:58 Assess/Plan/Problems-Billing Assessment: Mrs Dubose is a 63yo F with PMH of ovarian cyst, alcohol use, multiple admissions for recurrent N/V, who presented to ED with another episode of intractable N/V. - Patient Problems (1) Nausea & vomiting Comment: - This is her 5th episode - on prior admissions she had lipase elevation suggestive of pancreatitis. She was advised to quit alcohol and has done so, but symptoms happened again. Last episode had been less than one week ago. No provoking factor this time. - GI input appreciated - plan for EGD later today. - If no siginificant finds, may pursue gastric emptying study as outpatient. - Continue PPI and symptomatic treatment. (2) DVT prophylaxis Comment: - SQ heparin. (3) Full code status
[2018-08-15] MEDS ORDERED: fentaNYL* 50 MCG/ML 2 ML VIAL (100 MCG VIAL) ONE (14:35)
[2018-08-15] MEDS ORDERED: Midazolam* 1 MG/ML 10 ML VIAL (10 MG) ONE (14:35)
[2018-08-16] MEDS: Heparin VIAL(*) 5000 UNITS/ML VIAL (FIVE THOUSAND) SUBCUT SCH (05:43)
[2018-08-16] MEDS: NS 0.9% 1000 ML* 1,000 ML IV SCH (06:41)
[2018-08-16] MEDS: Pantoprazole IV* 40 MG IV SCH (08:12)
[2018-08-16 08:48] VITALS: BP 113/70
--- NOTE | 2018-08-17 14:48 | DS ---
CC: Dr. Troy Moon in [place]; Dr. Vasques, Gastroenterology DISCHARGE SUMMARY: DATE OF ADMISSION: 08/14/18. DATE OF DISCHARGE: 08/16/18. PRIMARY CARE PROVIDER: Dr. Troy Moon in [place]. DISCHARGE DIAGNOSES: 1. Recurrent nausea and vomiting of unclear etiology. 2. Hyperglycemia. SECONDARY DIAGNOSES: 1. Ovarian cyst. 2. History of alcohol use. MEDICATION LIST: 1. Omeprazole 10 mg p.o. daily at 6.00 a.m. 2. Tigan 300 mg p.o. q.8 hours p.r.n. nausea. HOSPITAL COURSE: Mrs. Dubose is a 63-year-old female with a past medical history as stated above that presented to the emergency room with her fifth episode of recurrent nausea and vomiting. For more details about her presentation, I refer you to her history and physical. The patient was seen in consultation by Gastroenterology (Dr. Vasques) and my impression is that Mrs. Dubose is a 63-year-old woman with a history of recurrent episodic intractable nausea and vomiting, prior episode of alcohol related pancreatitis in February 2018 and tobacco use, who presented to the ER with recurrent intractable nausea and vomiting several days after being discharged with the same symptoms. Discussed with the patient and her that the diagnosis of cyclic vomiting syndrome is very uncommon and that being said, there is no clear etiology to her recurrent symptoms. She recommended PPI and antiemetics, and the patient underwent an EGD on 08/15/18 that showed a 2-cm hiatal hernia, but otherwise it was a normal study. Biopsies were obtained to rule out celiac disease and those needs to be followed as outpatient. The patient was seen in followup by Dr. Jovel and he agreed with the management and has already made arrangements for the patient to have nuclear medicine gastric emptying study as an outpatient and already scheduled followup for her to see Dr. Vasques on 08/26/18 at 11:50 a.m. On her laboratory studies, the patient was noted to have hyperglycemia with a glucose of of 186 and her hemoglobin A1c was checked and it was 5.6. The patient had a normal TSH on a prior admission and a normal random cortisol at this time. She had resolution of her symptoms and she is medically stable to be discharged at this time, but she will need follow up as an outpatient with her primary care provider and with Gastroenterology. PHYSICAL EXAMINATION: Vital Signs: Temperature 98.3, heart rate is 50, respiratory rate is 16, oxygen saturation 98% on room air, blood pressure is 113 /70. General: The patient is a pleasant lady, sitting up in bed, in no acute distress. Extremities: No edema. Neuro: She is alert and oriented x3, able to move all 4 extremities. DIET: Regular diet. ACTIVITY: As tolerated. DISPOSITION: To home. STATUS WHILE IN THE HOSPITAL: Observation. Please keep in mind this is a summarized version of this patient's hospital stay. If you need more information, please feel free to call me at [phone] or please obtain full medical records. TIME SPENT: Approximately 45 minutes were spent to complete this discharge. [id number]/[facility] #: [id number] [place]
== END 2018-08-16 11:00 | disposition home or self-care (01) ==
LOC: ED 01:10 → MED 07:38
PROVIDERS: ADMIT Internal Medicine; ATTEND Internal Medicine
DX: R11.2 Nausea with vomiting, unspecified (principal); R73.9 Hyperglycemia, unspecified; N83.209 Unspecified ovarian cyst, unspecified side; F10.21 Alcohol dependence, in remission; Z88.0 Allergy status to penicillin; R19.7 Diarrhea, unspecified; F17.210 Nicotine dependence, cigarettes, uncomplicated
CPT/HCPCS: 36415; 80048; 80053; 80307; 81003; 82150; 82533; 83036; 83605; 83690; 83735; 85025; 85610; 85730; 86140; 88305; 96365; 96372; 96375; 96376; 99156; 99284; A9270-GY; G0378; J0780; J1644; J1885; J2060; J2250; J2405; J2765; J3010; J3250

== ENCOUNTER 2018-10-26 19:19 | Inpatient (IN) | payer BC ==
[2018-10-26] MEDS ORDERED: NS 0.9% 1000 ML** 1,000 ML IV ONE ×2 (19:21→20:42)
[2018-10-26] MEDS ORDERED: Haloperidol INJ IV/IM* 5 MG/ML AMP IV SLOW PU ONE (19:22)
[2018-10-26] MEDS ORDERED: DiMENhydriNATE IV* 50 MG/ML VIAL IV PUSH ONE (19:22)
--- NOTE | 2018-10-26 19:39 | ED ---
Abdominal Pain/Female - HPI Summary HPI Summary: Pt is a 63 y/o F presenting to the ED with a chief complaint of nausea and vomiting. The pt is 2 weeks post-splenectomy and pancreatectomy. She woke up with diarrhea and nausea last night, which then progressed into uncontrollable vomiting this morning. Pts tried SL Zofran which did not help. 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 Since the surgery , she has not been eating or drinking very well. The pt reports nausea, and watery, mucousy, and extraordinarily smelly diarrhea. The pt denies chest pain, sob, pain, heartburn, blood in stool, marijuana use, or previous cholecystectomy. The pt has not had normal bowel movements since the surgery. - History of Current Complaint Chief Complaint: EDNauseaVomitDiarrh Stated Complaint: GENERAL ILLNESS Time Seen by Provider: 10/26/18 19:20 Hx Obtained From: Patient, Family/Loader - ?: No Onset/Duration: Sudden Onset, Lasting Hours, Still Present, Worse Since - this morning Timing: Constant Severity Initially: Moderate Severity Currently: Moderate Pain Intensity: 0 Pain Scale Used: 0-10 Numeric Aggravating Factor(s): Food, Movement, Deep Breaths Alleviating Factor(s): Nothing Associated Signs and Symptoms: Positive: Decreased Appetite, Nausea, Vomiting, Diarrhea. Negative: Blood in Stool Allergies/Adverse Reactions: Allergies Allergy/AdvReac Type Severity Reaction Status Date / Time amoxicillin Allergy Rash And Verified 10/26/18 19:28 Itching clindamycin Allergy Nausea Verified 10/26/18 19:28 codeine AdvReac Nausea And Verified 10/26/18 19:28 Vomiting PMH/Surg Hx/FS Hx/Imm Hx Previously Healthy: No Endocrine/Hematology History: Denies: Hx Anticoagulant Therapy, Hx Diabetes Cardiovascular History: Denies: Hx Angina, Hx Cardiac Arrest, Hx Coronary Artery Disease, Hx Hypertension, Hx Myocardial Infarction Respiratory History: Denies: Hx Asthma, Hx Chronic Bronchitis, Hx Lung Cancer, Hx Pulmonary Embolism GI History: Reports: Hx Diverticulosis, Other GI Disorders - cyclic vomiting syndrome History: Denies: Hx Chronic Renal Failure Musculoskeletal History: Denies: Hx Fibromyalgia Sensory History: Reports: Hx Contacts or Glasses Denies: Hx Cataracts, Hx Macular Degeneration, Hx Deafness, Hx Hearing Aid Opthamlomology History: Reports: Hx Contacts or Glasses Denies: Hx Cataracts, Hx Macular Degeneration Neurological History: Denies: Hx Headaches, Hx Seizures, Hx Transient Ischemic Attacks (TIA) Psychiatric History: Denies: Hx Oppositional Stearns Disorder, Hx Community Mental Health Tx Infectious Disease History: No Infectious Disease History: Denies: Hx Clostridium Difficile, Hx of Known/Suspected MRSA, Hx Known/ Suspected VRE, Traveled Outside the [place] in Last 30 Days - Family History Known Family History: Negative: Cardiac Disease, Hypertension, Diabetes - Social History Alcohol Use: Occasionally Alcohol Amount: 3 beers Hx Substance Use: No Substance Use Type: Reports: None. Denies: Marijuana Hx Tobacco Use: Yes Smoking Status (MU): Light Every Day Tobacco Smoker Review of Systems Positive: Chills. Negative: Fever Negative: Chest Pain Negative: Shortness Of Breath Positive: Abdominal Pain, Vomiting, Diarrhea, Nausea All Other Systems Reviewed And Are Negative: Yes Physical Exam - Summary Physical Exam Summary: Appearance: Well appearing, moderately distressed Skin: warm, dry, reflects adequate perfusion Head/face: normal Eyes: EOMI, GASTON ENT: mucous membranes moist Neck: supple, non-tender Respiratory: CTA, breath sounds present Cardiovascular: RRR, pulses symmetrical Abdomen: mild general tenderness in upper abdomen, cyclic nausea, old midline surgical scar Bowel Sounds: present, quiet Musculoskeletal: normal, strength/ROM intact Neuro: normal, sensory motor intact, A&Ox3 Triage Information Reviewed: Yes Vital Signs On Initial Exam: Initial Vitals Temp Pulse Resp BP Pulse Ox 96 F 109 20 132/91 96 10/26/18 19:24 10/26/18 19:24 10/26/18 19:24 10/26/18 19:24 10/26/18 19:24 Vital Signs Reviewed: Yes Diagnostics - Vital Signs Vital Signs Temp Pulse Resp BP Pulse Ox 10/26/18 19:24 96 F 109 20 132/91 96 - Laboratory Result Diagrams: 10/26/18 20:06 10/26/18 20:06 Lab Statement: Any lab studies that have been ordered have been reviewed, and results considered in the medical decision making process. - Radiology ABD x-ray Radiology Interpretation Completed By: ED Physician Summary of Radiographic Findings: No free air. Paucity of bowel gas. Pending official radiology report. - EKG 2110 Cardiac Rate: NL - 63bpm EKG Rhythm: Sinus Rhythm ST Segment: Normal Ectopy: None EKG Comparison: No Significant Change Re-Evaluation - Re-Evaluation 1st eval Re-Evaluation Time: 21:17 Change: Worse Comment: Pt was doing much better, just woke up vomiting again, the pt will be admitted to [facility] [place] for further evaluation and testing. Abdominal Pain Fem Course/Dx - Course Course Of Treatment: Nurse's notes reviewed. Patient with history of cyclic vomiting like syndrome in the past presents with similar symptoms. She is also 2 weeks post surgery from removal of the pancreatic tail for neuroendocrine tumor. Off of her oxycodone that she was taking postsurgically. No significant pain. Nausea and watery diarrhea. Stool sample not yet given. X- ray indicates possibly of bowel gas but no obstructive pattern. Laboratories benign other than grossly elevated platelet count. Discussed with GI who will see in the morning. Admit to hospitalist. - Diagnoses Differential Diagnosis: Positive: Bowel Obstruction, Constipation, Gall Bladder Disease, Irritable Bowel Syndrome, Pancreatitis, Other - Postsurgical complication Provider Diagnoses: Intractable nausea and vomiting, Hx of malignant neuroendocrine tumor, Thrombocytosis after splenectomy - Provider Notifications Discussed Care Of Patient With: Margarita Vasques - will see in consult morning. Admit to hospitalist. Discharge - Sign-Out/Discharge Documenting (check all that apply): Patient Departure - Discharge Plan Condition: Fair Disposition: ADMITTED TO [facility] - Billing Disposition and Condition Condition: FAIR Disposition: Admitted to [facility] - Attestation Statements Document Initiated by Michael: Yes Documenting Scribe: Ana Doe Provider For Whom Michael is Documenting (Include Credential): Ruy Blanco MD. Scribe Attestation: Ana Garcia, scribed for Ruy Blanco MD. on 10/26/18 at 2243. Scribe Documentation Reviewed: Yes Provider Attestation: The documentation as recorded by the Ana carbone accurately reflects the service I personally performed and the decisions made by , Ruy Blanco MD. Status of Scribe Document: Viewed Consult Consult: [id number] - Spoke with Dr. Patel about the pt's condition. The pt will be admitted to the hospital for the GI doctor to see her in the morning.
[2018-10-26 20:26] LABS: Hematocrit 39 % (35-47); Hemoglobin 13.1 g/dl (12.0-16.0); Mean Corpuscular HGB Conc 34 g/dl (31-36); Mean Corpuscular Hemoglobin 31 pg (27-31); Mean Corpuscular Volume 93 fL (80-97); Red Blood Count 4.18 10^6/ul (4.00-5.40); Red Cell Distribution Width 13 % (10.5-15); White Blood Count 7.2 10^3/ul (3.5-10.8)
[2018-10-26 20:28] LABS: INR 1.06 (0.77-1.02)
[2018-10-26 20:34] LABS: Albumin 4.6 g/dL (3.2-5.2); Albumin/Globulin Ratio 1.2 (1-3); BUN/Creatinine Ratio 13.6 (8-20); C Reactive Protein 10.53 mg/L (<8.01); Calcium 10.2 mg/dL (8.6-10.3); EGFR African American 86.7 (>60); EGFR Non-African American 71.6 (>60); Globulin 3.7 g/dL (2-4); Potassium 3.6 mmol/L (3.5-5.0); Total Bilirubin 0.3 mg/dL (0.2-1.0); Total Protein 8.3 g/dL (6.4-8.9)
[2018-10-26 20:44] LABS: ABS Basophils 0.1 10^3/ul (0-0.2); ABS Eosinophils 0.2 10^3/ul (0-0.6); ABS Lymphocytes 1.5 10^3/ul (1.0-4.8); ABS Monocytes 0.3 10^3/ul (0-0.8); ABS Neutrophils 5.1 10^3/ul (1.5-7.7); ABS Nucleated RBC 0 10^3/ul; Eosinophil % 2.2 %; Lymphocyte % 20.6 %; Mean Platelet Volume 8.5 fL (7.4-10.4); Nucleated Red Blood Cells % 0; Platelet Count 1042 10^3/ul (150-450)
[2018-10-26] MEDS ORDERED: Trimethobenzamide IM* 100 MG/ML 2 ml VIAL IM ONE (21:17)
[2018-10-26] MEDS ORDERED: Trimethobenzamide CAP* 300 MG PO PRN (21:53)
--- NOTE | 2018-10-26 21:56 | ADMNOTE ---
Subjective Date of Service: 10/26/18 - History and Physical Interval History: Chief Complaint: Nausea, vomiting, Diarrhea. HPI: This is a 63 year old Female with history of GI neuroendocrine tumor involving pancreas, who about two weeks ago had distal pancreactomy, and splenectomy who now presents to the Emergency room due to nausea, vomiting, diarrhea. Patient prior to the surgery, had intermittent- and at times peristent nausea, vomiting, and diarrhea. After the surgery, the symptoms subsided, until yesterday when she developed diarrhea. Then in the morning today developed nausea, vomiting. She has had about 5-6 episodes of diarrhea- some formed stool , with liquid BM. She continues to have nausea, and vomiting, partially relieved with medications given in the emergency room. No fever, no chills, no abdominal pain. In the Emergency room she received Haldol, Tigan, dramamine. Family History: Findings - Father: bladder cancer, Mother: Parkinson's disease Social History: Findings - Lives at home with , former smoker, occasional alcohol use. 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 Review of Systems - Measurements Intake and Output: Intake and Output Last 24 Hours 10/24/18 10/25/18 10/26/18 10/27/18 06:59 06:59 06:59 06:59 Intake Total 1000 Balance 1000 Weight 120 lb Intake: IV Fluids 1000 - Review of Systems Constitutional Symptoms: Positive: Weakness, Fatigue HEENT: Negative: Change in Hearing, Dental Problems Eyes: Negative: Change in Vision, Eye Pain Thyroid: Negative: Cold Intolerance, Constipation, Palpitations Pulmonary: Negative: Cough, Sputum, Shortness of Breath Cardiology: Negative: Chest Pain, Shortness of Breath, Palpitations, Faintness Gastroenterology: Positive: Nausea, Vomiting, Diarrhea Negative: Abdominal Pain Genital - Urinary: Negative: Dysuria, Hematuria, Polyuria Musculoskeletal: Negative: Arthritis, Low Back Pain Hematologic/Lymphatic: Positive: Use of Antiplatelet Drugs - started on lovenox 40mg subQ post pancreas resection and splenectomy Psychiatry: Negative: Depression, Anxiety Objective Active Medications: Enoxaparin Sodium (Lovenox(*)) 40 mg SUBCUT Q24H [facility] Sodium Chloride (Ns 0.9% 1000 Ml*) 1,000 mls @ 100 mls/hr IV PER RATE [facility] Ondansetron HCl (Zofran Inj*) 4 mg IV Q4H PRN PRN Reason: NAUSEA/VOMITING Trimethobenzamide HCl (Tigan Cap*) 300 mg PO Q12H PRN PRN Reason: NAUSEA/VOMITING Vital Signs - 8 hr 10/26/18 10/26/18 10/26/18 19:24 19:40 19:42 Temperature 96 F Pulse Rate 109 74 68 Respiratory 20 28 Rate Blood Pressure 132/91 124/81 (mmHg) O2 Sat by Pulse 96 100 100 Oximetry 10/26/18 10/26/18 20:00 21:00 Temperature Pulse Rate 73 55 Respiratory 27 14 Rate Blood Pressure (mmHg) O2 Sat by Pulse 100 100 Oximetry Oxygen Devices in Use Now: None Appearance: Thin female, lying in ER stretcher, not in distress, looks tired. She had vomiting episodes during my encounter with her in the emergency room. Eyes: PERRLA Ears/Nose/Mouth/Throat: - - oral mucosa is dry. no nystagmus. no orophyaryngeal erythema. Neck: Trachea Midline Respiratory: Symmetrical Chest Expansion and Respiratory Effort, Clear to Auscultation Cardiovascular: NL Sounds; No Murmurs; No JVD, RRR, - - no chest wall tenderness. Abdominal: NL Sounds; No Tenderness; No Distention, No Hepatosplenomegaly, - - bowel sounds are normoactive, soft, no tenderness, no guarding, no rigidity, non -distended. Extremities: No Edema Skin: No Rash or Ulcers Neurological: Alert and Oriented x 3, - - motor 5/5 all 4 extremities. Result Diagrams: 10/26/18 20:06 10/26/18 20:06 Microbiology and Other Data: Microbiology 10/26/18 20:05 Stool Gross Appearance - Final Stool C. difficile DNA Amplification - Final 027 Presumptive NEGATIVE Toxigenic C.diff NEGATIVE Assess/Plan/Problems-Billing Assessment: - Patient Problems (1) Nausea vomiting and diarrhea Current Visit: Yes Status: Acute Code(s): R11.2 - NAUSEA WITH VOMITING, UNSPECIFIED; R19.7 - DIARRHEA, UNSPECIFIED SNOMED Code(s): 8905562 Comment: Abdomen xray does not show obstructive pattern. abdomen is non- distended, gastroenteritis vs. possibly due to pancreas resection vs. due to neuroendocrine tumor. Spoke with Dr. Meade, who recommended symptomatic managment, her impression is this is unlikely related to surgery. for now IV fluids, anti-emetics. stool cdiff is negative, stool culture and WBC pending. (2) Neuroendocrine cancer Current Visit: No Status: Chronic Code(s): C7A.8 - OTHER MALIGNANT NEUROENDOCRINE TUMORS SNOMED Code(s): 763908486068987 (3) Thrombocytosis after splenectomy Current Visit: Yes Status: Acute Code(s): R79.89 - OTHER SPECIFIED ABNORMAL FINDINGS OF BLOOD CHEMISTRY; Z90.81 - ACQUIRED ABSENCE OF SPLEEN SNOMED Code(s ): 762522119 Comment: recent splenectomy- and now platlets are significantly elevated, 1 million. will monitor. continue lovenox for dvt prophylaix. may require hematology if she develops issues. (4) Lactic acid acidosis Current Visit: Yes Status: Acute Code(s): E87.2 - ACIDOSIS SNOMED Code(s) : 80126065 Comment: due to dehydration caused by nausea, vomiting and diarrhea. Points of Discussion: This is patient's History and physical for the admission. Medications/Allergies Medications: Home Medications Medication Instructions Recorded Confirmed Type Trimethobenzamide CAP* [Tigan CAP*] 300 mg PO Q8H PRN #30 cap 08/16/18 10/26/18 Rx Lovenox(*) 10/26/18 History Pantoprazole TAB * [Protonix TAB*] 40 mg PO BID 10/26/18 10/26/18 History Allergies/Adverse Reactions: Allergies Allergy/AdvReac Type Severity Reaction Status Date / Time amoxicillin Allergy Rash And Verified 10/26/18 19:28 Itching clindamycin Allergy Nausea Verified 10/26/18 19:28 codeine AdvReac Nausea And Verified 10/26/18 19:28 Vomiting
[2018-10-26] MEDS: Enoxaparin(*) 40 MG/0.4 ML SYR SUBCUT SCH (22:11)
[2018-10-26] MEDS: LORazepam INJ* 2 MG/ML 1 ML VIAL IV PUSH PRN (22:50)
[2018-10-26] MEDS ORDERED: Simethicone TAB* 80 MG TAB.CHEW PO ONE (22:53)
[2018-10-26] MEDS ORDERED: PROCHLORPERAZINE INJ 5 MG/ML 2 ML VIAL ONE (23:22)
[2018-10-26] MEDS: PROCHLORPERAZINE INJ 5 MG/ML 2 ML VIAL IV PRN (23:27)
[2018-10-26] MEDS: NS 0.9% 1000 ML** 1,000 ML IV SCH (23:28)
[2018-10-27] MEDS: Ondansetron INJ* 2 MG/ML VIAL IV PRN ×3 (01:03→16:02)
[2018-10-27] MEDS ORDERED: Metoclopramide IV* 5 MG/ML 2 ML VIAL IV ONE ×3 (01:35→12:41)
[2018-10-27] MEDS ORDERED: Metoclopramide IV* 5 MG/ML 2 ML VIAL ONE (02:04)
[2018-10-27] MEDS ORDERED: DiMENhydriNATE IV* 50 MG/ML VIAL IV PUSH ONE (03:36)
[2018-10-27] MEDS: LORazepam INJ* 2 MG/ML 1 ML VIAL IV PUSH PRN ×4 (04:49→21:56)
[2018-10-27 06:20] LABS: ABS Basophils 0 10^3/ul (0-0.2); ABS Eosinophils 0 10^3/ul (0-0.6); ABS Lymphocytes 0.8 10^3/ul (1.0-4.8); ABS Monocytes 0.1 10^3/ul (0-0.8); ABS Neutrophils 11.5 10^3/ul (1.5-7.7); ABS Nucleated RBC 0 10^3/ul; Eosinophil % 0 %; Hematocrit 33 % (35-47); Hemoglobin 10.7 g/dl (12.0-16.0); Lymphocyte % 6.3 %; Mean Corpuscular HGB Conc 33 g/dl (31-36); Mean Corpuscular Hemoglobin 31 pg (27-31); Mean Corpuscular Volume 93 fL (80-97); Mean Platelet Volume 8.7 fL (7.4-10.4); Nucleated Red Blood Cells % 0; Platelet Count 877 10^3/ul (150-450); Red Blood Count 3.52 10^6/ul (4.00-5.40); Red Cell Distribution Width 13 % (10.5-15); White Blood Count 12.5 10^3/ul (3.5-10.8)
[2018-10-27 06:38] LABS: BUN/Creatinine Ratio 14.9 (8-20); Calcium 9.1 mg/dL (8.6-10.3); EGFR African American 96.2 (>60); EGFR Non-African American 79.5 (>60); Magnesium 1.8 mg/dL (1.9-2.7); Phosphorus 4.3 mg/dL (2.5-5.0); Potassium 3.7 mmol/L (3.5-5.0)
[2018-10-27] MEDS ORDERED: Magnesium Sulfate 2 GM IV* 2 GM/50 ML BAG IVPB ONE (08:32)
[2018-10-27] MEDS: NS 0.9% 1000 ML** 1,000 ML IV SCH ×2 (09:09→21:22)
[2018-10-27] MEDS ORDERED: KCL 20 MEQ/100 ML IVPREMIX* 20 MEQ/100 ML BAG IV ONE (10:00)
[2018-10-27] MEDS: PROCHLORPERAZINE INJ 5 MG/ML 2 ML VIAL IV PRN ×2 (10:17→16:01)
[2018-10-27] MEDS ORDERED: Ondansetron INJ* 2 MG/ML VIAL IV ONE (11:54)
[2018-10-27] MEDS ORDERED: Iohexol 300* (CONTRAST) 10 ML SDV IV ONE (14:48)
--- NOTE | 2018-10-27 15:15 | PN ---
Subjective Date of Service: 10/27/18 Interval History: Initially most of history provided by Eladio Carrasco as patient asleep. Pt vomited about 12 times so far today. He thinks ultimately the thing that seems to work is her being a bit sedated. Had 2cm nonfunctional neuroendocrine tumor removed from tail of pancreas and splenectomy via robotic surgery on 10/12/[address] Alexys Briggs after an EUS biopsy with Dr. Granda had showed mass. Had drenching sweats in ED, the worse she has ever had. Developed ALVARADO over last 2 days, usually never has. No vision changes, falls, focal weakness, abdominal pain. Since the surgery she had infrequent BMs in setting of poor po intake and had been on colace, senna. She got Milk of Magnesia the night before her diarrhea occurred. BMs were soft but formed. Cdiff negative. PLT elevated but improved. 877 from 1042. 40 pack year smoking history Has lost 16lbs "recently" and 25lbs since the first episode started more April 2017 She has never been able to manage the nausea symptoms at home with medications given severity - she has always been admitted, this now 6ht episode. [facility] Records obtained: 09/01/18 EUS FNA(4 passes): 2cm hypoechoic mass lesion with cytology consistent with well differentiated neuroendocrine tumor, WHO grade 2, 1 of the 17 lymph nodes involved by tumor. pT1 N1 chronic pancreatitis. 1 mitotic figure per 2 mm^2. Ki-67 index- up to 10% CT abd/pelvis without and with IV contrast 10/07/18: 1.5x1.6x1.6cm hypoattenuating mass with central punctate calcification in pancreatic tail. Distal to this is 5mm of pancreatic ductal dilatation within the tail of the pancreatic parenchyma. No enlarged lymph nodes. chromogranin A 178 elevated (0-95) on 10/07/18 Family History: Findings - Father: bladder cancer, Mother: Parkinson's disease Social History: Findings - Lives at home with , former smoker, occasional alcohol use. 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 Objective Active Medications: Enoxaparin Sodium (Lovenox(*)) 40 mg SUBCUT 2100 AMBER Last Admin: 10/26/18 22:11 Dose: 40 mg Sodium Chloride (Ns 0.9% 1000 Ml*) 1,000 mls @ 100 mls/hr IV PER RATE [facility]BER Last Admin: 10/27/18 09:09 Dose: 100 mls/hr Lorazepam (Ativan Inj*) 1 mg IV PUSH Q6H PRN PRN Reason: nausea/vomiting not relieved Last Admin: 10/27/18 14:53 Dose: 1 mg Ondansetron HCl (Zofran Inj*) 4 mg IV Q4H PRN PRN Reason: NAUSEA/VOMITING Last Admin: 10/27/18 09:09 Dose: 4 mg Prochlorperazine Edisylate (Compazine Inj*) 5 mg IV Q6H PRN PRN Reason: NAUSEA/VOMITING Last Admin: 10/27/18 10:17 Dose: 5 mg Trimethobenzamide HCl (Tigan Cap*) 300 mg PO Q12H PRN PRN Reason: NAUSEA/VOMITING Vital Signs - 8 hr 10/27/18 10/27/18 10/27/18 07:35 08:00 11:02 Temperature 98.3 F 98.1 F Pulse Rate 86 80 Respiratory 18 18 16 Rate Blood Pressure 136/75 143/75 (mmHg) O2 Sat by Pulse 98 98 Oximetry 10/27/18 14:53 Temperature Pulse Rate Respiratory 16 Rate Blood Pressure (mmHg) O2 Sat by Pulse Oximetry Oxygen Devices in Use Now: None Appearance: alternating between asleep and uneasy/nauseaus appearing. Eyes: No Scleral Icterus Ears/Nose/Mouth/Throat: NL Teeth, Lips, Gums Neck: NL Appearance and Movements; NL JVP Respiratory: Symmetrical Chest Expansion and Respiratory Effort, Clear to Auscultation Cardiovascular: NL Sounds; No Murmurs; No JVD Abdominal: - - midline lower abdominal scar with eschar but no erythema, nontender to exam Extremities: No Edema Skin: No Rash or Ulcers Neurological: Alert and Oriented x 3 Nutrition: Taking PO's Result Diagrams: 10/27/18 18:02 10/27/18 05:32 Additional Lab and Data: Laboratory Results - last 24 hr 10/26/18 10/26/18 10/26/18 20:06 20:06 20:06 WBC 7.2 RBC 4.18 Hgb 13.1 Hct 39 MCV 93 MCH 31 MCHC 34 RDW 13 Plt Count 1042 H D MPV 8.5 Neut % (Auto) 71.5 Lymph % (Auto) 20.6 [place] % (Auto) 4.6 Eos % (Auto) 2.2 Baso % (Auto) 1.1 Absolute Neuts (auto) 5.1 Absolute Lymphs (auto) 1.5 Absolute Monos (auto) 0.3 Absolute Eos (auto) 0.2 Absolute Basos (auto) 0.1 Absolute Nucleated RBC 0 Nucleated RBC % 0 Hem Pathologist Commnt INR (Anticoag Therapy) 1.06 H Sodium 138 Potassium 3.6 D Chloride 101 Carbon Dioxide 24 Anion Gap 13 H BUN 11 Creatinine 0.81 Est GFR ( Amer) 86.7 Est GFR (Non-Af Amer) 71.6 BUN/Creatinine Ratio 13.6 Glucose 195 H Lactic Acid Calcium 10.2 Phosphorus Magnesium Total Bilirubin 0.30 AST 16 ALT 15 Alkaline Phosphatase 85 Troponin I 0.00 C-Reactive Protein 10.53 H Total Protein 8.3 Albumin 4.6 Globulin 3.7 Albumin/Globulin Ratio 1.2 Lipase 32 Urine Color Urine Appearance Urine pH Ur Specific [place] Urine Protein Urine Ketones Urine Blood Urine Nitrate Urine Bilirubin Urine Urobilinogen Ur Leukocyte Esterase Urine Glucose 10/26/18 10/27/18 10/27/18 20:06 00:55 05:32 WBC 12.5 H RBC 3.52 L Hgb 10.7 L Hct 33 L MCV 93 MCH 31 MCHC 33 RDW 13 Plt Count 877 H D MPV 8.7 Neut % (Auto) 92.3 Lymph % (Auto) 6.3 [place] % (Auto) 1.1 Eos % (Auto) 0 Baso % (Auto) 0.3 Absolute Neuts (auto) 11.5 H Absolute Lymphs (auto) 0.8 L Absolute Monos (auto) 0.1 Absolute Eos (auto) 0 Absolute Basos (auto) 0 Absolute Nucleated RBC 0 Nucleated RBC % 0 Hem Pathologist Commnt INR (Anticoag Therapy) Sodium Potassium Chloride Carbon Dioxide Anion Gap BUN Creatinine Est GFR ( Amer) Est GFR (Non-Af Amer) BUN/Creatinine Ratio Glucose Lactic Acid 2.8 H* 2.0 Calcium Phosphorus Magnesium Total Bilirubin AST ALT Alkaline Phosphatase Troponin I C-Reactive Protein Total Protein Albumin Globulin Albumin/Globulin Ratio Lipase Urine Color Urine Appearance Urine pH Ur Specific [place] Urine Protein Urine Ketones Urine Blood Urine Nitrate Urine Bilirubin Urine Urobilinogen Ur Leukocyte Esterase Urine Glucose 10/27/18 10/27/1819 05:32 15:51 18:02 WBC RBC Hgb 10.6 L Hct 32 L MCV MCH MCHC RDW Plt Count MPV Neut % (Auto) Lymph % (Auto) [place] % (Auto) Eos % (Auto) Baso % (Auto) Absolute Neuts (auto) Absolute Lymphs (auto) Absolute Monos (auto) Absolute Eos (auto) Absolute Basos (auto) Absolute Nucleated RBC Nucleated RBC % Hem Pathologist Commnt INR (Anticoag Therapy) Sodium 140 Potassium 3.7 Chloride 106 Carbon Dioxide 22 Anion Gap 12 H BUN 11 Creatinine 0.74 Est GFR ( Amer) 96.2 Est GFR (Non-Af Amer) 79.5 BUN/Creatinine Ratio 14.9 Glucose 188 H Lactic Acid Calcium 9.1 Phosphorus 4.3 Magnesium 1.8 L Total Bilirubin AST ALT Alkaline Phosphatase Troponin I C-Reactive Protein Total Protein Albumin Globulin Albumin/Globulin Ratio Lipase Urine Color Yellow Urine Appearance Clear Urine pH 6.0 Ur Specific [place] 1.017 Urine Protein Negative Urine Ketones Negative Urine Blood Negative Urine Nitrate Negative Urine Bilirubin Negative Urine Urobilinogen Negative Ur Leukocyte Esterase Negative Urine Glucose 1+(50 mg/dl) A Microbiology and Other Data: Microbiology 10/27/18 16:32 Gastric Fluid Gastric Occult Blood - Final 10/26/18 20:05 Stool Stool Gross Appearance - Final 10/26/18 20:05 Stool Stool Lactoferrin - Final 10/26/18 20:05 Stool Stool Gross Appearance - Final 10/26/18 20:05 Stool Shiga Toxin I & II - Final Negative Shiga Toxin 1 & 2 10/26/18 20:05 Stool Stool Gross Appearance - Final 10/26/18 20:05 Stool C. difficile DNA Amplification - Final 027 Presumptive NEGATIVE Toxigenic C.diff NEGATIVE Assess/Plan/Problems-Billing Assessment: 63 year old female presenting with 6th episode of intractable nausea and vomiting since onset April 2017. Recent resection of well differentiated neuroendocrine tumor at [facility] 10/12. CT abd/pelvis with IV but not po contrast concerning for pancreatic 3.7x3.4x3.1 cm pancreatic pseudocyst likely, per GI Dr. Johnson, a post-operative complication due to pancreatic duct leak. #Intractable Nausea and Vomiting - appreciate GI recs. - not completely clear etiology but this episode likely related to the pancreatic duct leak. Per Dr. Johnson will try to control symptoms here but if patient were to develop fever or otherwise decompensate will need to transfer to [place] for Dr. Granda to attempt pancreatic duct stent - increased zofran from 4mg to 8mg IV q4h prn - continue compazine 5mg IV q6h prn - increase ativan frequency to 1mg q3h from q6h prn. Per sedation is most effective. - continue Tigan 300mg po q12hr pn - have gotten a few doses of reglan. - CTH noncontrast (though with residual contrast from prior in day abdomen/ pelvis study with no acute concern for increased intercranial pressure or mass - start protonix 40mg IV BID given tea colored vomitus last time. at risk for scotty amin tear given retching. - CBC daily, BMP, Mg, daily. - pancreatic rest, only sips of clears. - per GI Dr. Johnson, would not tx the radiologic reading of colitis. #neuroendocrine tumor, well differentiated, pT1 N1 - final pathology/staining still pending per #thrombocytosis, marked -likely reactive and particularly in setting of recent splenectomy - CBC daily - have asked pathology to make peripheral smear to further evaluate - consider heme/onc consult in AM CODE:FULL dispo: medicine inpatient. - Patient Problems (1) Pancreatic duct leak Current Visit: Yes Status: Acute Code(s): K86.89 - OTHER SPECIFIED DISEASES OF PANCREAS SNOMED Code(s): 159141003 (2) Nausea vomiting and diarrhea Current Visit: Yes Status: Acute Code(s): R11.2 - NAUSEA WITH VOMITING, UNSPECIFIED; R19.7 - DIARRHEA, UNSPECIFIED SNOMED Code(s): 7899292 (3) Thrombocytosis after splenectomy Current Visit: Yes Status: Acute Code(s): R79.89 - OTHER SPECIFIED ABNORMAL FINDINGS OF BLOOD CHEMISTRY; Z90.81 - ACQUIRED ABSENCE OF SPLEEN SNOMED Code(s ): 072260075 (4) Neuroendocrine cancer Current Visit: No Status: Chronic Code(s): C7A.8 - OTHER MALIGNANT NEUROENDOCRINE TUMORS SNOMED Code(s): 046723989067609
[2018-10-27] MEDS ORDERED: Ondansetron INJ* 2 MG/ML VIAL ONE (15:56)
[2018-10-27 16:06] LABS: Urine Appearance Clear; Urine Bilirubin Negative (Negative); Urine Blood Negative (Negative); Urine Color Yellow; Urine Glucose 1+(50 mg/dL) (Negative); Urine Ketones Negative (Negative); Urine Nitrite Negative (Negative); Urine Protein Negative (Negative); Urine Specific Gravity 1.017 (1.010-1.030); Urine Urobilinogen Negative (Negative)
[2018-10-27 18:17] LABS: Hematocrit 32 % (35-47); Hemoglobin 10.6 g/dl (12.0-16.0)
[2018-10-27] MEDS: Enoxaparin(*) 40 MG/0.4 ML SYR SUBCUT SCH (19:47)
--- NOTE | 2018-10-27 20:26 | CONS ---
CONSULTATION REPORT: DATE OF CONSULT: 10/27/18 REQUESTING PHYSICIAN: Dr. Gideon Cope. REASON FOR CONSULT: Refractory nausea, vomiting, recent pancreatic neuroendocrine tumor resection. HISTORY OF PRESENT ILLNESS: This is a very pleasant 63-year-old female who was seen in consultation by my partner, Dr. Margarita Vasques, in the office for nausea and vomiting. She did a full workup, eventually found an elevated lipase with concern for chronic pancreatitis and was sent for endoscopic ultrasound up at [facility]. This was done by Dr. Granda and showed a pancreatic tail lesion. The US FNA was on 09/01/18 and that showed a 2 cm hypoechoic mass. She proceeded with endoscopic robotic surgery with Dr. Alexys Briggs on 10/12/18. Pathology revealed a well-differentiated neuroendocrine tumor, WHO grade 2, one of the 17 lymph nodes involved with the tumor. It is a pT1N1. Also, chronic pancreatitis. Ki-67 index was up to 10%, chromogranin A was 178. After surgery, she states that she had relative improvement in her symptoms for at least a few weeks, did not fully return to baseline, but there was initially some improvement. However, over the last 2 days, she has developed nausea, vomiting, yellow-green emesis, and yesterday did have diarrhea 5 to 6 episodes. Diarrhea was characterized as loose stool, not profuse liquid, there was some formed stool in it and she presented to the emergency room with refractory nausea and vomiting. Denies any noy hematemesis. There was 1 episode today of darker emesis. She has continued to have nausea and emesis despite multiple antiemetic medications. Light sedation medications seemed to be the most effective for her. She appropriately had stool cultures for her diarrhea, which were negative for C. diff. She admits to significant weight loss during this period. Today, she states that she has had about 10 to 11 episodes of emesis. Also admits to a headache over the last 2 days. No noy fever, chills, or rigors. She admits to some minor discomfort along her prior surgical sites, but no drainage or discharge. The remainder of the 14-point review of systems is grossly negative. PAST MEDICAL HISTORY: Pancreatic neuroendocrine tumor, status post distal pancreas resection and splenectomy on 10/12/[address] Alexys Briggs at [facility]. Also, endoscopic ultrasound by Dr. Granda on 09/01/18. HOME MEDICATIONS: Include: 1. Pantoprazole. 2. Tigan. FAMILY HISTORY: Denies any family history of GI malignancy or inflammatory bowel disease. SOCIAL HISTORY: Lives at home with . Former smoker. Occasional alcohol use. REVIEW OF SYSTEMS: The remainder of the 14-point review of systems is grossly negative. PHYSICAL EXAM: Vital Signs: Blood pressure 143/75, pulse is 80, respiratory rate is 16, she is 98% on room air, temperature is 98.1, T-max has been 98.3. In general, lethargic, in no acute distress. HEENT: Atraumatic, normocephalic. Pupils are equal, round, reactive to light. Sclerae are anicteric. Conjunctivae are pink. Cardiovascular: Regular rate and rhythm. S1, S2. Pulmonary: Clear to auscultation bilaterally. Abdomen is soft. Bowel sounds hypoactive. Crusting at surgical scar sites. No gross leakage or discharge appreciated. No guarding or rebound. Extremities: No clubbing, no cyanosis, no edema. Skin is without rash. DIAGNOSTIC STUDIES/LAB DATA: Laboratory Data: Hemoglobin on admission 13.1; today 10.7, WBC count is 12.5; platelet count on admission is 1042 x 10 to third ; today is 887. INR 1.06. BUN 11, creatinine 0.74, glucose 188. Lactic acid on admission 2.8; today 2.0. CRP was 10.53. AST is 16, ALT is 15. Lipase was 32. Urine was bland. I ordered a CT of the abdomen and pelvis today. This showed some scant wall thickening of the transverse colon through the splenic flexure to the descending colon. There is a cystic lesion in the tail of the pancreas; it is 3.7 x 3.1 x 3.4 and it is simple fluid and attenuation. No evidence of bowel obstruction. ASSESSMENT AND PLAN: This is a 63-year-old female with history of recent pancreatic neuroendocrine tumor resection with refractory nausea and vomiting. 1. Refractory nausea and vomiting. The patient has a pancreatic pseudocyst on CT, which is quite common post resection. This is likely a small leak. I am unclear if this is the entire etiology of her symptoms, but it may have exacerbated her condition. I discussed the case with Dr. Briggs at [facility]. I agree with pancreatic rest through the weekend. If she spikes a fever or has any systemic signs of infection, we would recommend referral for PD stent. If not resolving nausea and vomiting with no other etiology to find, would recommend contacting [facility] again for consideration for PD stent to help facilitate drainage. She does have a headache. I think it is appropriate and I discussed with Dr. Gideon Cope to consider a CT of the head to rule out a central process here; however, she has no neurological deficits on exam. Would continue with IV antiemetic medication , pancreatic rest. She did have 1 episode of darker emesis today that was gastric occult positive, but has no overt signs of hematemesis at this time. Would monitor H and H every 6 hours at this point. If ongoing evidence of loss , would consider evaluation. It is certainly possible that she could have developed a small Ashley-Cortez tear from the retching. 2. Pancreatic neuroendocrine tumor, status post resection. Unclear if this is the etiology of symptoms. We will have the patient follow up at [facility] after discharge. 3. Thickening on CT. No gross evidence clinically of colitis at this point. The CT was done without p.o. contrast. We would observe for clinical signs or symptoms of infection or colitis including bleeding and abdominal pain. If that occurs, given that she has a negative C. diff, it would be reasonable to start Cipro and Flagyl at that point. 4. Normocytic anemia. No gross evidence of blood loss at this time. Did have 1 episode of emesis that did stain for gastric occult blood positive, but no gross hematemesis visualized. Would continue monitoring. 5. Thrombocytosis. This condition is common post splenectomy; however, this degree and persistence a few weeks out, it may be worth touching base with the oncology team to see if there is a role for hydroxyurea or aspirin or if other etiologies need to be considered. This can certainly increase bleeding risk and would recommend watching the patient closely. [id number]/[facility] #: [id number] [place]
[2018-10-27] MEDS: Pantoprazole IV* 40 MG IV SCH (21:45)
[2018-10-28] MEDS: LORazepam INJ* 2 MG/ML 1 ML VIAL IV PUSH PRN ×7 (01:22→21:17)
[2018-10-28 07:44] LABS: Hematocrit 29 % (35-47); Hemoglobin 10.1 g/dl (12.0-16.0); Mean Corpuscular HGB Conc 34 g/dl (31-36); Mean Corpuscular Hemoglobin 31 pg (27-31); Mean Corpuscular Volume 91 fL (80-97); Mean Platelet Volume 8.3 fL (7.4-10.4); Platelet Count 714 10^3/ul (150-450); Red Blood Count 3.22 10^6/ul (4.00-5.40); Red Cell Distribution Width 13 % (10.5-15); White Blood Count 11.8 10^3/ul (3.5-10.8)
[2018-10-28] MEDS: Pantoprazole IV* 40 MG IV SCH ×2 (07:49→21:17)
[2018-10-28] MEDS: NS 0.9% 1000 ML** 1,000 ML IV SCH ×2 (07:54→18:02)
[2018-10-28 08:02] LABS: BUN/Creatinine Ratio 14.8 (8-20); Calcium 8.7 mg/dL (8.6-10.3); EGFR African American 120.3 (>60); EGFR Non-African American 99.4 (>60); Magnesium 1.8 mg/dL (1.9-2.7); Potassium 3.3 mmol/L (3.5-5.0)
[2018-10-28 08:38] LABS: ABS Basophils 0 10^3/ul (0-0.2); ABS Eosinophils 0 10^3/ul (0-0.6); ABS Lymphocytes 1.6 10^3/ul (1.0-4.8); ABS Monocytes 0.8 10^3/ul (0-0.8); ABS Neutrophils 9.3 10^3/ul (1.5-7.7); ABS Nucleated RBC 0 10^3/ul; Eosinophil % 0.1 %; Large Platelets Present; Lymphocyte % 13.7 %; Nucleated Red Blood Cells % 0.1
[2018-10-28] MEDS ORDERED: Magnesium Sulfate 2 GM IV* 2 GM/50 ML BAG IVPB ONE (10:03)
--- NOTE | 2018-10-28 14:41 | PN ---
Subjective Date of Service: 10/28/18 Interval History: Patient seen and examined. Appears sleepy but appropriate. Per she looks "better" today than she has in some time. Vomiting seems to have subsided today with utilization of Ativan Q3h. Denies abdominal pain, no fevers, chills, sweats or headaches. Family History: Findings - Father: bladder cancer, Mother: Parkinson's disease Social History: Findings - Lives at home with , former smoker, occasional alcohol use. 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 Objective Active Medications: Sodium Chloride (Ns 0.9% 1000 Ml*) 1,000 mls @ 100 mls/hr IV PER RATE AMBER Last Admin: 10/28/18 07:54 Dose: 100 mls/hr Lorazepam (Ativan Inj*) 1 mg IV PUSH Q3H PRN PRN Reason: nausea/vomiting not relieved Last Admin: 10/28/18 11:25 Dose: 1 mg Ondansetron HCl (Zofran Inj*) 8 mg IV Q4H PRN PRN Reason: NAUSEA/VOMITING Last Admin: 10/27/18 16:02 Dose: 8 mg Pantoprazole Sodium (Protonix Iv*) 40 mg IV Q12H [facility] Last Admin: 10/28/18 07:49 Dose: 40 mg Prochlorperazine Edisylate (Compazine Inj*) 5 mg IV Q6H PRN PRN Reason: NAUSEA/VOMITING Last Admin: 10/27/18 16:01 Dose: 5 mg Trimethobenzamide HCl (Tigan Cap*) 300 mg PO Q12H PRN PRN Reason: NAUSEA/VOMITING Vital Signs - 8 hr 10/28/18 10/28/18 10/28/18 07:09 07:44 08:00 Temperature 98.3 F Pulse Rate 73 Respiratory 16 17 16 Rate Blood Pressure 147/73 (mmHg) O2 Sat by Pulse 95 Oximetry 10/28/18 10/28/18 09:00 11:25 Temperature Pulse Rate Respiratory 16 16 Rate Blood Pressure (mmHg) O2 Sat by Pulse Oximetry Oxygen Devices in Use Now: None Appearance: sleepy, arousable, appropriate Eyes: No Scleral Icterus, PERRLA Ears/Nose/Mouth/Throat: NL Teeth, Lips, Gums, Mucous Membranes Moist Neck: NL Appearance and Movements; NL JVP, Trachea Midline Respiratory: Symmetrical Chest Expansion and Respiratory Effort, Clear to Auscultation Cardiovascular: NL Sounds; No Murmurs; No JVD, RRR Abdominal: NL Sounds; No Tenderness; No Distention Extremities: No Edema, No Clubbing, Cyanosis Skin: No Rash or Ulcers, No Nodules or Sclerosis Neurological: Alert and Oriented x 3, NL Sensation Nutrition: - - NPO Result Diagrams: 10/28/18 07:36 10/28/18 07:36 Additional Lab and Data: Laboratory Results - last 24 hr 10/26/18 10/26/18 10/26/18 20:06 20:06 20:06 WBC 7.2 RBC 4.18 Hgb 13.1 Hct 39 MCV 93 MCH 31 MCHC 34 RDW 13 Plt Count 1042 H D MPV 8.5 Neut % (Auto) 71.5 Lymph % (Auto) 20.6 [place] % (Auto) 4.6 Eos % (Auto) 2.2 Baso % (Auto) 1.1 Absolute Neuts (auto) 5.1 Absolute Lymphs (auto) 1.5 Absolute Monos (auto) 0.3 Absolute Eos (auto) 0.2 Absolute Basos (auto) 0.1 Absolute Nucleated RBC 0 Nucleated RBC % 0 Hem Pathologist Commnt INR (Anticoag Therapy) 1.06 H Sodium 138 Potassium 3.6 D Chloride 101 Carbon Dioxide 24 Anion Gap 13 H BUN 11 Creatinine 0.81 Est GFR ( Amer) 86.7 Est GFR (Non-Af Amer) 71.6 BUN/Creatinine Ratio 13.6 Glucose 195 H Lactic Acid Calcium 10.2 Phosphorus Magnesium Total Bilirubin 0.30 AST 16 ALT 15 Alkaline Phosphatase 85 Troponin I 0.00 C-Reactive Protein 10.53 H Total Protein 8.3 Albumin 4.6 Globulin 3.7 Albumin/Globulin Ratio 1.2 Lipase 32 Urine Color Urine Appearance Urine pH Ur Specific [place] Urine Protein Urine Ketones Urine Blood Urine Nitrate Urine Bilirubin Urine Urobilinogen Ur Leukocyte Esterase Urine Glucose 10/26/18 10/27/18 10/27/18 20:06 00:55 05:32 WBC 12.5 H RBC 3.52 L Hgb 10.7 L Hct 33 L MCV 93 MCH 31 MCHC 33 RDW 13 Plt Count 877 H D MPV 8.7 Neut % (Auto) 92.3 Lymph % (Auto) 6.3 [place] % (Auto) 1.1 Eos % (Auto) 0 Baso % (Auto) 0.3 Absolute Neuts (auto) 11.5 H Absolute Lymphs (auto) 0.8 L Absolute Monos (auto) 0.1 Absolute Eos (auto) 0 Absolute Basos (auto) 0 Absolute Nucleated RBC 0 Nucleated RBC % 0 Hem Pathologist Commnt INR (Anticoag Therapy) Sodium Potassium Chloride Carbon Dioxide Anion Gap BUN Creatinine Est GFR ( Amer) Est GFR (Non-Af Amer) BUN/Creatinine Ratio Glucose Lactic Acid 2.8 H* 2.0 Calcium Phosphorus Magnesium Total Bilirubin AST ALT Alkaline Phosphatase Troponin I C-Reactive Protein Total Protein Albumin Globulin Albumin/Globulin Ratio Lipase Urine Color Urine Appearance Urine pH Ur Specific [place] Urine Protein Urine Ketones Urine Blood Urine Nitrate Urine Bilirubin Urine Urobilinogen Ur Leukocyte Esterase Urine Glucose 10/27/18 10/27/18 10/27/18 05:32 15:51 18:02 WBC RBC Hgb 10.6 L Hct 32 L MCV MCH MCHC RDW Plt Count MPV Neut % (Auto) Lymph % (Auto) [place] % (Auto) Eos % (Auto) Baso % (Auto) Absolute Neuts (auto) Absolute Lymphs (auto) Absolute Monos (auto) Absolute Eos (auto) Absolute Basos (auto) Absolute Nucleated RBC Nucleated RBC % Hem Pathologist Commnt INR (Anticoag Therapy) Sodium 140 Potassium 3.7 Chloride 106 Carbon Dioxide 22 Anion Gap 12 H BUN 11 Creatinine 0.74 Est GFR ( Amer) 96.2 Est GFR (Non-Af Amer) 79.5 BUN/Creatinine Ratio 14.9 Glucose 188 H Lactic Acid Calcium 9.1 Phosphorus 4.3 Magnesium 1.8 L Total Bilirubin AST ALT Alkaline Phosphatase Troponin I C-Reactive Protein Total Protein Albumin Globulin Albumin/Globulin Ratio Lipase Urine Color Yellow Urine Appearance Clear Urine pH 6.0 Ur Specific [place] 1.017 Urine Protein Negative Urine Ketones Negative Urine Blood Negative Urine Nitrate Negative Urine Bilirubin Negative Urine Urobilinogen Negative Ur Leukocyte Esterase Negative Urine Glucose 1+(50 mg/dl) A Microbiology and Other Data: Microbiology 10/27/18 16:32 Gastric Fluid Gastric Occult Blood - Final 10/26/18 20:05 Stool Stool Gross Appearance - Final 10/26/18 20:05 Stool Stool Lactoferrin - Final 10/26/18 20:05 Stool Stool Gross Appearance - Final 10/26/18 20:05 Stool Shiga Toxin I & II - Final Negative Shiga Toxin 1 & 2 10/26/18 20:05 Stool Stool Gross Appearance - Final 10/26/18 20:05 Stool C. difficile DNA Amplification - Final 027 Presumptive NEGATIVE Toxigenic C.diff NEGATIVE Assess/Plan/Problems-Billing Assessment: 63 year old female presenting with 6th episode of intractable nausea and vomiting since onset April 2017. Recent resection of well differentiated neuroendocrine tumor at [place] 10/12. CT abd/pelvis with IV but not po contrast concerning for pancreatic 3.7x3.4x3.1 cm pancreatic pseudocyst likely, per GI Dr. Johnson, a post-operative complication due to pancreatic duct leak. #Intractable Nausea and Vomiting - appreciate GI recs. - not completely clear etiology but this episode likely related to the pancreatic duct leak. Per Dr. Johnson will try to control symptoms here but if patient were to develop fever or otherwise decompensate will need to transfer to [place] for Dr. Granda to attempt pancreatic duct stent - increased zofran from 4mg to 8mg IV q4h prn - continue compazine 5mg IV q6h prn - increase ativan frequency to 1mg q3h from q6h prn. Per sedation is most effective. - continue Tigan 300mg po q12hr pn - have gotten a few doses of reglan. - CTH noncontrast (though with residual contrast from prior in day abdomen/ pelvis study with no acute concern for increased intercranial pressure or mass - start protonix 40mg IV BID given tea colored vomitus last time. at risk for scotty cortez tear given retching. - CBC daily, BMP, Mg, daily. - pancreatic rest, only sips of clears. - per GI Dr. Johnson, would not tx the radiologic reading of colitis. #neuroendocrine tumor, well differentiated, pT1 N1 - final pathology/staining still pending per #thrombocytosis, marked -likely reactive and particularly in setting of recent splenectomy - CBC daily - have asked pathology to make peripheral smear to further evaluate - consider heme/onc consult in AM CODE:FULL dispo: medicine inpatient. - Patient Problems (1) Pancreatic duct leak Code(s): K86.89 - OTHER SPECIFIED DISEASES OF PANCREAS SNOMED Code(s): 757784448 Comment: (2) Nausea & vomiting Code(s): R11.2 - NAUSEA WITH VOMITING, UNSPECIFIED SNOMED Code(s): 39881310 Comment: - The only antiemetic that is helping is ativan, will continue and alternate with other agents as warranted - GI following - Continue PPI BID for high risk of Scotty Cortez tear - Pancreatic rest and IVF - Unclear if directly related to the pancreatic duct leak, as this is her 6th episode of this presentation since last year - Per Dr. Johnson who discussed case with surgeon in [place], will monitor here through the weekend, but if patient develops fever or decompensates, will need to transfer to [place] for Dr. Granda to attempt pancreatic duct stent (3) Neuroendocrine cancer Code(s): C7A.8 - OTHER MALIGNANT NEUROENDOCRINE TUMORS SNOMED Code(s): 820957080887155 Comment: - Per reports, well differentiated, pT1 N1 - final patho pending (4) Thrombocytosis after splenectomy Code(s): R79.89 - OTHER SPECIFIED ABNORMAL FINDINGS OF BLOOD CHEMISTRY; Z90.81 - ACQUIRED ABSENCE OF SPLEEN SNOMED Code(s): 150593003 Comment: - Continue lovenox per recs for 28 days total - PLTS 714 today/improved (5) Hypomagnesemia Code(s): E83.42 - HYPOMAGNESEMIA SNOMED Code(s): 847336025 Comment: - 2/2 vomiting - continue to replete, 2 additional gms today (6) DVT prophylaxis Code(s): [id number] - SNOMED Code(s): 756195822 Comment: - On lovenox (7) Full code status Code(s): Z78.9 - OTHER SPECIFIED HEALTH STATUS SNOMED Code(s): 551821303 Status and Disposition: Inpatient, condition: guarded. Dispo TBD.
[2018-10-28] MEDS: PROCHLORPERAZINE INJ 5 MG/ML 2 ML VIAL IV PRN (18:20)
[2018-10-28] MEDS: Ondansetron INJ* 2 MG/ML VIAL IV PRN (20:09)
[2018-10-29] MEDS: LORazepam INJ* 2 MG/ML 1 ML VIAL IV PUSH PRN ×3 (00:18→19:55)
[2018-10-29] MEDS: NS 0.9% 1000 ML** 1,000 ML IV SCH (04:15)
[2018-10-29] MEDS: Enoxaparin(*) 40 MG/0.4 ML SYR SUBCUT SCH (05:35)
[2018-10-29 08:39] LABS: Hematocrit 33 % (35-47); Hemoglobin 11.6 g/dl (12.0-16.0); Mean Corpuscular HGB Conc 35 g/dl (31-36); Mean Corpuscular Hemoglobin 32 pg (27-31); Mean Corpuscular Volume 90 fL (80-97); Mean Platelet Volume 9.1 fL (7.4-10.4); Platelet Count 707 10^3/ul (150-450); Red Blood Count 3.64 10^6/ul (4.00-5.40); Red Cell Distribution Width 12 % (10.5-15); White Blood Count 9.3 10^3/ul (3.5-10.8)
[2018-10-29 08:51] LABS: BUN/Creatinine Ratio 13.6 (8-20); Calcium 8.8 mg/dL (8.6-10.3); EGFR Non-African American 103.3 (>60); Magnesium 1.9 mg/dL (1.9-2.7); Potassium 2.9 mmol/L (3.5-5.0)
[2018-10-29 09:07] LABS: ABS Basophils 0.1 10^3/ul (0-0.2); ABS Eosinophils 0.1 10^3/ul (0-0.6); ABS Lymphocytes 1.7 10^3/ul (1.0-4.8); ABS Neutrophils 6.3 10^3/ul (1.5-7.7); ABS Nucleated RBC 0 10^3/ul; Eosinophil % 1.1 %; Lymphocyte % 18.8 %; Nucleated Red Blood Cells % 0
[2018-10-29] MEDS: Pantoprazole IV* 40 MG IV SCH (09:22)
[2018-10-29] MEDS: KCL 10 MEQ/50 ML IVPREMIX* 10 MEQ/50 ML BAG IV SCH ×4 (12:04→19:55)
[2018-10-29] MEDS: Scopolamine 1.5 mg* PATCH TRANSDERM SCH (12:04)
[2018-10-29] MEDS: Lactated Ringers 1000 ML Bag* 1,000 ML IV SCH ×2 (12:16→22:10)
[2018-10-29] MEDS ORDERED: Acetaminophen TAB* 325 MG PO PRN (14:15)
--- NOTE | 2018-10-29 15:39 | PN ---
Subjective Date of Service: 10/29/18 Interval History: Patient seen and examined. Appears sleepy but comfortable, per patient report, had emesis again this morning, nausea currently under better control. Denies fever or chills, no SOB, no chest pain, no abdominal pain. Family History: Findings - Father: bladder cancer, Mother: Parkinson's disease Social History: Findings - Lives at home with , former smoker, occasional alcohol use. 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 Objective Active Medications: Acetaminophen (Tylenol Tab*) 650 mg PO Q6H PRN PRN Reason: headache or fever Last Admin: 10/29/18 15:00 Dose: 650 mg Enoxaparin Sodium (Lovenox(*)) 40 mg SUBCUT Q24H [facility] Last Admin: 10/29/18 05:35 Dose: 40 mg Lactated Ringer's (Lactated Ringers 1000 Ml Bag*) 1,000 mls @ 125 mls/hr IV PER RATE [facility] Last Admin: 10/29/18 12:16 Dose: 125 mls/hr Lorazepam (Ativan Inj*) 1 mg IV PUSH Q3H PRN PRN Reason: nausea/vomiting not relieved Last Admin: 10/29/18 03:22 Dose: 1 mg Ondansetron HCl (Zofran Inj*) 8 mg IV Q4H PRN PRN Reason: NAUSEA/VOMITING Last Admin: 10/28/18 20:09 Dose: 8 mg Pantoprazole Sodium (Protonix Iv*) 40 mg IV Q24H [facility] Prochlorperazine Edisylate (Compazine Inj*) 5 mg IV Q6H PRN PRN Reason: NAUSEA/VOMITING Last Admin: 10/28/18 18:20 Dose: 5 mg Scopolamine (Transderm-Scop 1.5 Mg Patch*) 1 patch TRANSDERM Q72H [facility] Last Admin: 10/29/18 12:04 Dose: 1 patch Trimethobenzamide HCl (Tigan Cap*) 300 mg PO Q12H PRN PRN Reason: NAUSEA/VOMITING Oxygen Devices in Use Now: None Appearance: alert, NAD Eyes: No Scleral Icterus, PERRLA Ears/Nose/Mouth/Throat: NL Teeth, Lips, Gums, Mucous Membranes Moist Neck: NL Appearance and Movements; NL JVP, Trachea Midline Respiratory: Symmetrical Chest Expansion and Respiratory Effort, Clear to Auscultation Cardiovascular: NL Sounds; No Murmurs; No JVD, RRR, No Edema Abdominal: NL Sounds; No Tenderness; No Distention Extremities: No Edema, No Clubbing, Cyanosis Skin: No Rash or Ulcers Neurological: Alert and Oriented x 3, NL Sensation Nutrition: - - NPO Result Diagrams: 10/29/18 08:23 10/29/18 08:23 Additional Lab and Data: Laboratory Results - last 24 hr 10/26/18 10/26/18 10/26/18 20:06 20:06 20:06 WBC 7.2 RBC 4.18 Hgb 13.1 Hct 39 MCV 93 MCH 31 MCHC 34 RDW 13 Plt Count 1042 H D MPV 8.5 Neut % (Auto) 71.5 Lymph % (Auto) 20.6 [place] % (Auto) 4.6 Eos % (Auto) 2.2 Baso % (Auto) 1.1 Absolute Neuts (auto) 5.1 Absolute Lymphs (auto) 1.5 Absolute Monos (auto) 0.3 Absolute Eos (auto) 0.2 Absolute Basos (auto) 0.1 Absolute Nucleated RBC 0 Nucleated RBC % 0 Hem Pathologist Commnt INR (Anticoag Therapy) 1.06 H Sodium 138 Potassium 3.6 D Chloride 101 Carbon Dioxide 24 Anion Gap 13 H BUN 11 Creatinine 0.81 Est GFR ( Amer) 86.7 Est GFR (Non-Af Amer) 71.6 BUN/Creatinine Ratio 13.6 Glucose 195 H Lactic Acid Calcium 10.2 Phosphorus Magnesium Total Bilirubin 0.30 AST 16 ALT 15 Alkaline Phosphatase 85 Troponin I 0.00 C-Reactive Protein 10.53 H Total Protein 8.3 Albumin 4.6 Globulin 3.7 Albumin/Globulin Ratio 1.2 Lipase 32 Urine Color Urine Appearance Urine pH Ur Specific [place] Urine Protein Urine Ketones Urine Blood Urine Nitrate Urine Bilirubin Urine Urobilinogen Ur Leukocyte Esterase Urine Glucose 10/26/18 10/27/18 10/27/18 20:06 00:55 05:32 WBC 12.5 H RBC 3.52 L Hgb 10.7 L Hct 33 L MCV 93 MCH 31 MCHC 33 RDW 13 Plt Count 877 H D MPV 8.7 Neut % (Auto) 92.3 Lymph % (Auto) 6.3 [place] % (Auto) 1.1 Eos % (Auto) 0 Baso % (Auto) 0.3 Absolute Neuts (auto) 11.5 H Absolute Lymphs (auto) 0.8 L Absolute Monos (auto) 0.1 Absolute Eos (auto) 0 Absolute Basos (auto) 0 Absolute Nucleated RBC 0 Nucleated RBC % 0 Hem Pathologist Commnt INR (Anticoag Therapy) Sodium Potassium Chloride Carbon Dioxide Anion Gap BUN Creatinine Est GFR ( Amer) Est GFR (Non-Af Amer) BUN/Creatinine Ratio Glucose Lactic Acid 2.8 H* 2.0 Calcium Phosphorus Magnesium Total Bilirubin AST ALT Alkaline Phosphatase Troponin I C-Reactive Protein Total Protein Albumin Globulin Albumin/Globulin Ratio Lipase Urine Color Urine Appearance Urine pH Ur Specific [place] Urine Protein Urine Ketones Urine Blood Urine Nitrate Urine Bilirubin Urine Urobilinogen Ur Leukocyte Esterase Urine Glucose 10/27/18 10/27/18 10/27/18 05:32 15:51 18:02 WBC RBC Hgb 10.6 L Hct 32 L MCV MCH MCHC RDW Plt Count MPV Neut % (Auto) Lymph % (Auto) [place] % (Auto) Eos % (Auto) Baso % (Auto) Absolute Neuts (auto) Absolute Lymphs (auto) Absolute Monos (auto) Absolute Eos (auto) Absolute Basos (auto) Absolute Nucleated RBC Nucleated RBC % Hem Pathologist Commnt INR (Anticoag Therapy) Sodium 140 Potassium 3.7 Chloride 106 Carbon Dioxide 22 Anion Gap 12 H BUN 11 Creatinine 0.74 Est GFR ( Amer) 96.2 Est GFR (Non-Af Amer) 79.5 BUN/Creatinine Ratio 14.9 Glucose 188 H Lactic Acid Calcium 9.1 Phosphorus 4.3 Magnesium 1.8 L Total Bilirubin AST ALT Alkaline Phosphatase Troponin I C-Reactive Protein Total Protein Albumin Globulin Albumin/Globulin Ratio Lipase Urine Color Yellow Urine Appearance Clear Urine pH 6.0 Ur Specific [place] 1.017 Urine Protein Negative Urine Ketones Negative Urine Blood Negative Urine Nitrate Negative Urine Bilirubin Negative Urine Urobilinogen Negative Ur Leukocyte Esterase Negative Urine Glucose 1+(50 mg/dl) A Microbiology and Other Data: Microbiology 10/27/18 16:32 Gastric Fluid Gastric Occult Blood - Final 10/26/18 20:05 Stool Stool Gross Appearance - Final 10/26/18 20:05 Stool Stool Lactoferrin - Final 10/26/18 20:05 Stool Stool Gross Appearance - Final 10/26/18 20:05 Stool Shiga Toxin I & II - Final Negative Shiga Toxin 1 & 2 10/26/18 20:05 Stool Stool Gross Appearance - Final 10/26/18 20:05 Stool C. difficile DNA Amplification - Final 027 Presumptive NEGATIVE Toxigenic C.diff NEGATIVE Assess/Plan/Problems-Billing Assessment: 63 year old female presenting with 6th episode of intractable nausea and vomiting since onset April 2017. Recent resection of well differentiated neuroendocrine tumor at [place] 10/12. CT abd/pelvis with IV but not po contrast concerning for pancreatic 3.7x3.4x3.1 cm pancreatic pseudocyst likely, per GI Dr. Johnson, a post-operative complication due to pancreatic duct leak. - Patient Problems (1) Pancreatic duct leak Code(s): K86.89 - OTHER SPECIFIED DISEASES OF PANCREAS SNOMED Code(s): 564891557 Comment: - Pancreatic rest - GI following - Per GI note, discussed case with surgeon in [place], will monitor here through the weekend, but if patient develops fever or decompensates, will need to transfer to [place] for Dr. Granda to attempt pancreatic duct stent (2) Nausea & vomiting Code(s): R11.2 - NAUSEA WITH VOMITING, UNSPECIFIED SNOMED Code(s): 09644701 Comment: - Add scop patch today, ativan is helping, alternate with other agents - GI following - Decrease PPI to once daily, high risk of Ashley Cortez tear - Pancreatic rest and IVF - Unclear if directly related to the pancreatic duct leak, as this is her 6th episode of this presentation since last year (3) Neuroendocrine cancer Code(s): C7A.8 - OTHER MALIGNANT NEUROENDOCRINE TUMORS SNOMED Code(s): 706377015154222 Comment: - Per reports, well differentiated, pT1 N1 - final patho pending (4) Thrombocytosis after splenectomy Code(s): R79.89 - OTHER SPECIFIED ABNORMAL FINDINGS OF BLOOD CHEMISTRY; Z90.81 - ACQUIRED ABSENCE OF SPLEEN SNOMED Code(s): 005991115 Comment: - Continue lovenox per recs for 28 days total - PLTS 707 today/improved (5) Hypomagnesemia Code(s): E83.42 - HYPOMAGNESEMIA SNOMED Code(s): 064933277 Comment: - Repleted (6) Electrolyte imbalance Code(s): E87.8 - OTH DISORDERS OF ELECTROLYTE AND FLUID BALANCE, NEC SNOMED Code(s): 266621702 Comment: - Sodium and potassium very low today - Will give 4 K-riders, change IVF to LR at 125ml/hr - Follow daily lytes (7) DVT prophylaxis Code(s): BME4976 - SNOMED Code(s): 606140493 Comment: - On lovenox (needs to stay on for 28 days post-op for thrombocytosis) - No bloody or coffee ground emesis, does not appear to have active GI bleeding (8) Full code status Code(s): Z78.9 - OTHER SPECIFIED HEALTH STATUS SNOMED Code(s): 282612420 Status and Disposition: Inpatient, condition: guarded. Dispo TBD.
[2018-10-29] MEDS ORDERED: KCL 10 MEQ/50 ML IVPREMIX* 20 MEQ/100 ML BAG ONE (17:31)
[2018-10-30] MEDS ORDERED: oxyCODONE/Acetamin 5/325 MG* TAB PO PRN (01:27)
[2018-10-30] MEDS ORDERED: oxyCODONE TAB* 5 MG TAB ONE (01:36)
[2018-10-30] MEDS: Ondansetron INJ* 2 MG/ML VIAL IV PRN ×3 (01:42→17:22)
[2018-10-30] MEDS: LORazepam INJ* 2 MG/ML 1 ML VIAL IV PUSH PRN ×5 (01:45→22:03)
[2018-10-30] MEDS: PROCHLORPERAZINE INJ 5 MG/ML 2 ML VIAL IV PRN ×2 (03:38→13:20)
[2018-10-30] MEDS: Enoxaparin(*) 40 MG/0.4 ML SYR SUBCUT SCH (05:40)
[2018-10-30] MEDS: Lactated Ringers 1000 ML Bag* 1,000 ML IV SCH (05:42)
[2018-10-30 06:10] LABS: Hematocrit 36 % (35-47); Hemoglobin 12.1 g/dl (12.0-16.0); Mean Corpuscular HGB Conc 34 g/dl (31-36); Mean Corpuscular Hemoglobin 31 pg (27-31); Mean Corpuscular Volume 90 fL (80-97); Mean Platelet Volume 9.8 fL (7.4-10.4); Platelet Count 659 10^3/ul (150-450); Red Blood Count 3.93 10^6/ul (4.00-5.40); Red Cell Distribution Width 13 % (10.5-15); White Blood Count 8.8 10^3/ul (3.5-10.8)
[2018-10-30 06:37] LABS: BUN/Creatinine Ratio 16.1 (8-20); Calcium 8.8 mg/dL (8.6-10.3); EGFR African American 132.7 (>60); EGFR Non-African American 109.7 (>60); Magnesium 1.8 mg/dL (1.9-2.7)
[2018-10-30 07:10] LABS: ABS Basophils 0.1 10^3/ul (0-0.2); ABS Eosinophils 0.1 10^3/ul (0-0.6); ABS Lymphocytes 1.3 10^3/ul (1.0-4.8); ABS Monocytes 0.8 10^3/ul (0-0.8); ABS Neutrophils 6.6 10^3/ul (1.5-7.7); ABS Nucleated RBC 0 10^3/ul; Eosinophil % 1.1 %; Large Platelets Present; Lymphocyte % 14.3 %; Nucleated Red Blood Cells % 0.1
[2018-10-30] MEDS ORDERED: Magnesium Sulfate 2 GM IV* 2 GM/50 ML BAG IVPB ONE (08:04)
[2018-10-30] MEDS ORDERED: Magnesium Sulfate 2 GM IV* 2 GM/50 ML BAG ONE (08:26)
[2018-10-30] MEDS: NS 0.9% w/ 40 Meq KCL 1000 ML* 1,000 ML IV SCH ×2 (08:34→18:37)
[2018-10-30] MEDS: Pantoprazole IV* 40 MG IV SCH (08:35)
[2018-10-30] MEDS: KCL 10 MEQ/50 ML IVPREMIX* 10 MEQ/50 ML BAG IV SCH ×2 (10:20→11:34)
[2018-10-30] MEDS: Dexamethasone IV* 4 MG/ML 1 ML (4 MG) IV SLOW PU SCH ×3 (11:10→22:05)
--- NOTE | 2018-10-30 13:03 | PN ---
Subjective Date of Service: 10/30/18 Interval History: Patient seen and examined. Was feeling better last evening, then started vomiting again around 1 am, 3 times in total. She is current nauseous with no further vomiting today. Denies fever or chills, mild lower abdominal pain, no diarrhea, has not had a BM in 2 days. Family History: Findings - Father: bladder cancer, Mother: Parkinson's disease Social History: Findings - Lives at home with , former smoker, occasional alcohol use. 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 Objective Active Medications: Acetaminophen (Tylenol Tab*) 650 mg PO Q6H PRN PRN Reason: headache or fever Last Admin: 10/29/18 15:00 Dose: 650 mg Dexamethasone Sodium Phosphate (Decadron Iv*) 4 mg IV SLOW PU Q8HR [facility] Stop: 10/30/18 22:01 Last Admin: 10/30/18 11:10 Dose: 4 mg Enoxaparin Sodium (Lovenox(*)) 40 mg SUBCUT Q24H [facility] Last Admin: 10/30/18 05:40 Dose: 40 mg Potassium Chloride/Sodium Chloride (Ns 0.9% W/ 40 Meq Kcl 1000 Ml*) 1,000 mls @ 100 mls/hr IV PER RATE [facility] Last Admin: 10/30/18 08:34 Dose: 100 mls/hr Lorazepam (Ativan Inj*) 1 mg IV PUSH Q3H PRN PRN Reason: nausea/vomiting not relieved Last Admin: 10/30/18 08:35 Dose: 1 mg Ondansetron HCl (Zofran Inj*) 8 mg IV Q4H PRN PRN Reason: NAUSEA/VOMITING Last Admin: 10/30/18 08:34 Dose: 8 mg Oxycodone/Acetaminophen (Percocet 5/325 Tab*) 1 tab PO Q6H PRN PRN Reason: PAIN Pantoprazole Sodium (Protonix Iv*) 40 mg IV Q24H [facility] Last Admin: 10/30/18 08:35 Dose: 40 mg Prochlorperazine Edisylate (Compazine Inj*) 5 mg IV Q6H PRN PRN Reason: NAUSEA/VOMITING Last Admin: 10/30/18 03:38 Dose: 5 mg Scopolamine (Transderm-Scop 1.5 Mg Patch*) 1 patch TRANSDERM Q72H [facility] Last Admin: 10/29/18 12:04 Dose: 1 patch Trimethobenzamide HCl (Tigan Cap*) 300 mg PO Q12H PRN PRN Reason: NAUSEA/VOMITING Last Admin: 10/30/18 05:39 Dose: 300 mg Vital Signs - 8 hr 10/30/18 10/30/18 10/30/18 07:54 08:35 09:41 Temperature 98.4 F Pulse Rate 71 Respiratory 12 18 18 Rate Blood Pressure 153/87 (mmHg) O2 Sat by Pulse 98 Oximetry 10/30/18 10:22 Temperature Pulse Rate Respiratory 18 Rate Blood Pressure (mmHg) O2 Sat by Pulse Oximetry Oxygen Devices in Use Now: None Appearance: alert, NAD Eyes: No Scleral Icterus, PERRLA Ears/Nose/Mouth/Throat: Mucous Membranes Moist Neck: NL Appearance and Movements; NL JVP, Trachea Midline Respiratory: Symmetrical Chest Expansion and Respiratory Effort, Clear to Auscultation Cardiovascular: NL Sounds; No Murmurs; No JVD, RRR Abdominal: - - no distension, +[id number], mildly tender to palp, no guarding Extremities: No Edema, No Clubbing, Cyanosis Skin: No Rash or Ulcers, No Nodules or Sclerosis Neurological: Alert and Oriented x 3, NL Sensation, NL Gait Nutrition: - - ice chips Result Diagrams: 10/30/18 05:10 10/30/18 05:10 Additional Lab and Data: Laboratory Results - last 24 hr 10/26/18 10/26/18 10/26/18 20:06 20:06 20:06 WBC 7.2 RBC 4.18 Hgb 13.1 Hct 39 MCV 93 MCH 31 MCHC 34 RDW 13 Plt Count 1042 H D MPV 8.5 Neut % (Auto) 71.5 Lymph % (Auto) 20.6 [place] % (Auto) 4.6 Eos % (Auto) 2.2 Baso % (Auto) 1.1 Absolute Neuts (auto) 5.1 Absolute Lymphs (auto) 1.5 Absolute Monos (auto) 0.3 Absolute Eos (auto) 0.2 Absolute Basos (auto) 0.1 Absolute Nucleated RBC 0 Nucleated RBC % 0 Hem Pathologist Commnt INR (Anticoag Therapy) 1.06 H Sodium 138 Potassium 3.6 D Chloride 101 Carbon Dioxide 24 Anion Gap 13 H BUN 11 Creatinine 0.81 Est GFR ( Amer) 86.7 Est GFR (Non-Af Amer) 71.6 BUN/Creatinine Ratio 13.6 Glucose 195 H Lactic Acid Calcium 10.2 Phosphorus Magnesium Total Bilirubin 0.30 AST 16 ALT 15 Alkaline Phosphatase 85 Troponin I 0.00 C-Reactive Protein 10.53 H Total Protein 8.3 Albumin 4.6 Globulin 3.7 Albumin/Globulin Ratio 1.2 Lipase 32 Urine Color Urine Appearance Urine pH Ur Specific [place] Urine Protein Urine Ketones Urine Blood Urine Nitrate Urine Bilirubin Urine Urobilinogen Ur Leukocyte Esterase Urine Glucose 10/26/18 10/27/18 10/27/18 20:06 00:55 05:32 WBC 12.5 H RBC 3.52 L Hgb 10.7 L Hct 33 L MCV 93 MCH 31 MCHC 33 RDW 13 Plt Count 877 H D MPV 8.7 Neut % (Auto) 92.3 Lymph % (Auto) 6.3 [place] % (Auto) 1.1 Eos % (Auto) 0 Baso % (Auto) 0.3 Absolute Neuts (auto) 11.5 H Absolute Lymphs (auto) 0.8 L Absolute Monos (auto) 0.1 Absolute Eos (auto) 0 Absolute Basos (auto) 0 Absolute Nucleated RBC 0 Nucleated RBC % 0 Hem Pathologist Commnt INR (Anticoag Therapy) Sodium Potassium Chloride Carbon Dioxide Anion Gap BUN Creatinine Est GFR ( Amer) Est GFR (Non-Af Amer) BUN/Creatinine Ratio Glucose Lactic Acid 2.8 H* 2.0 Calcium Phosphorus Magnesium Total Bilirubin AST ALT Alkaline Phosphatase Troponin I C-Reactive Protein Total Protein Albumin Globulin Albumin/Globulin Ratio Lipase Urine Color Urine Appearance Urine pH Ur Specific [place] Urine Protein Urine Ketones Urine Blood Urine Nitrate Urine Bilirubin Urine Urobilinogen Ur Leukocyte Esterase Urine Glucose 10/27/18 10/27/18 10/27/18 05:32 15:51 18:02 WBC RBC Hgb 10.6 L Hct 32 L MCV MCH MCHC RDW Plt Count MPV Neut % (Auto) Lymph % (Auto) [place] % (Auto) Eos % (Auto) Baso % (Auto) Absolute Neuts (auto) Absolute Lymphs (auto) Absolute Monos (auto) Absolute Eos (auto) Absolute Basos (auto) Absolute Nucleated RBC Nucleated RBC % Hem Pathologist Commnt INR (Anticoag Therapy) Sodium 140 Potassium 3.7 Chloride 106 Carbon Dioxide 22 Anion Gap 12 H BUN 11 Creatinine 0.74 Est GFR ( Amer) 96.2 Est GFR (Non-Af Amer) 79.5 BUN/Creatinine Ratio 14.9 Glucose 188 H Lactic Acid Calcium 9.1 Phosphorus 4.3 Magnesium 1.8 L Total Bilirubin AST ALT Alkaline Phosphatase Troponin I C-Reactive Protein Total Protein Albumin Globulin Albumin/Globulin Ratio Lipase Urine Color Yellow Urine Appearance Clear Urine pH 6.0 Ur Specific [place] 1.017 Urine Protein Negative Urine Ketones Negative Urine Blood Negative Urine Nitrate Negative Urine Bilirubin Negative Urine Urobilinogen Negative Ur Leukocyte Esterase Negative Urine Glucose 1+(50 mg/dl) A Microbiology and Other Data: Microbiology 10/27/18 16:32 Gastric Fluid Gastric Occult Blood - Final 10/26/18 20:05 Stool Stool Gross Appearance - Final 10/26/18 20:05 Stool Stool Lactoferrin - Final 10/26/18 20:05 Stool Stool Gross Appearance - Final 10/26/18 20:05 Stool Shiga Toxin I & II - Final Negative Shiga Toxin 1 & 2 10/26/18 20:05 Stool Stool Gross Appearance - Final 10/26/18 20:05 Stool C. difficile DNA Amplification - Final 027 Presumptive NEGATIVE Toxigenic C.diff NEGATIVE Assess/Plan/Problems-Billing Assessment: 63 year old female presenting with 6th episode of intractable nausea and vomiting since onset April 2017. Recent resection of well differentiated neuroendocrine tumor at [place] 10/12. CT abd/pelvis with IV but not po contrast concerning for pancreatic 3.7x3.4x3.1 cm pancreatic pseudocyst likely, per GI Dr. Johnson, a post-operative complication due to pancreatic duct leak. - Patient Problems (1) Pancreatic duct leak Code(s): K86.89 - OTHER SPECIFIED DISEASES OF PANCREAS SNOMED Code(s): 106772016 Comment: - Trial of ice chips yesterday, vomiting has subsided, discussed with Dr. Goran Lopez, will trial clears this AM - Per Dr. Briggs at [place], no urgent indication to transfer today, do not need to reimage (2) Nausea & vomiting Code(s): R11.2 - NAUSEA WITH VOMITING, UNSPECIFIED SNOMED Code(s): 03264321 Comment: - Add scop patch today, ativan is helping, alternate with other agents - Add decadron IVQ8h today - Continue PPI, high risk of Ashley Cortez tear - IVF changed to NS with 40KCL - Etiology remains unclear (3) Neuroendocrine cancer Code(s): C7A.8 - OTHER MALIGNANT NEUROENDOCRINE TUMORS SNOMED Code(s): 612681440476977 Comment: - Per reports, well differentiated, pT1 N1 - final patho pending (4) Thrombocytosis after splenectomy Code(s): R79.89 - OTHER SPECIFIED ABNORMAL FINDINGS OF BLOOD CHEMISTRY; Z90.81 - ACQUIRED ABSENCE OF SPLEEN SNOMED Code(s): 238812178 Comment: - Continue lovenox per recs for 28 days total - PLTS 659 today/improved (5) Hypomagnesemia Code(s): E83.42 - HYPOMAGNESEMIA SNOMED Code(s): 124093147 Comment: - Continue repletion (6) Electrolyte imbalance Code(s): E87.8 - OTH DISORDERS OF ELECTROLYTE AND FLUID BALANCE, NEC SNOMED Code(s): 140620948 Comment: - Sodium and potassium remain low but no further drop today - s/p 4 k riders and 3 gm mag - IVF changed to NS with 40KCL, add two more k-riders and another gram of magnesium (7) DVT prophylaxis Code(s): BNU3502 - SNOMED Code(s): 713860581 Comment: - On lovenox (needs to stay on for 28 days post-op for thrombocytosis) - No bloody or coffee ground emesis, does not appear to have active GI bleeding - Continue PPI, especially while on decadron (8) Full code status Code(s): Z78.9 - OTHER SPECIFIED HEALTH STATUS SNOMED Code(s): 360404403 Status and Disposition: Inpatient, condition: guarded. Dispo TBD. Will communicate further with [facility] tomorrow if no improvement.
--- NOTE | 2018-10-30 15:40 | PN ---
Progress Note - Progress Note Date of Service: 10/30/18 Note: GASTROENTEROLOGY PROGRESS NOTE IE/S: Nausea/vomiting improved yesterday. Patient started on ice chips. She complained of some mid/upper abdominal pain and ongoing nausea, which worsened overnight. Reports 3 episodes of small volume emesis overnight. Pain fairly minimal this morning. O: VSS. Afebrile. Tired ill appearing woman. NAD. at bedside. RRR Breathing comfortably. Soft, mild tenderness in upper abdomen, most prominent in LUQ. ND. Labs reviewed -- normal WBC. Plt remain elevated, but down-trending (659). Hyponatremia (133), hypokalemic (3). Abdominal/CT reviewed -- cystic lesion at tail of pancreas (3.7 x 3.1 x 3.4) A/P: 63yF with history of episodic intractable nausea/vomiting and subsequent identification of pancreatic tail neuroendocrine tumor noted on EUS during work- up, now status-post distal pancreatectomy and splenectomy on 10/12. Admitted with severe nausea and vomiting. CT abdomen/pelvis demonstrated medium sized cystic lesion at pancreas, suspected to be post-operative in nature. Vomiting has largely improved; however, severe nausea persists. Now with some LUQ > epigastric tenderness. Lipase not initially elevated. Presentation is lasting much longer than her prior episodes of nausea/vomiting. Possible post- operative pancreatic leak given fluid collection seen on imaging may be driving symptoms. - Monitor CBC, CMP, lipase daily - Clears as tolerated - IVF @ 125-150 cc/hr - Anti-emetics per primary team - Check AM cortisol - Fairly low threshold to repeat imaging (ie: acute clinical change, fever) - Discussed case with Dr Briggs (Surg Onc attending from [place]). If patient 's symptoms fail to improve or worsen in next 24 hours or so, then we will discuss transfer to [place] and consideration of pancreatic duct stent placement. Margarita Vasques MD Gastroenterology
[2018-10-31] MEDS: PROCHLORPERAZINE INJ 5 MG/ML 2 ML VIAL IV PRN (02:47)
[2018-10-31] MEDS: LORazepam INJ* 2 MG/ML 1 ML VIAL IV PUSH PRN ×3 (02:51→19:48)
[2018-10-31] MEDS: NS 0.9% w/ 40 Meq KCL 1000 ML* 1,000 ML IV SCH ×2 (04:59→15:41)
[2018-10-31] MEDS: Ondansetron INJ* 2 MG/ML VIAL IV PRN ×2 (05:46→21:47)
[2018-10-31] MEDS: Enoxaparin(*) 40 MG/0.4 ML SYR SUBCUT SCH (05:47)
[2018-10-31] MEDS: HYDROmorphone INJ1* 1 MG/ML SYRINGE IV SLOW PU PRN ×3 (05:47→19:48)
[2018-10-31 07:01] LABS: Hematocrit 33 % (35-47); Hemoglobin 11.6 g/dl (12.0-16.0); Mean Corpuscular HGB Conc 35 g/dl (31-36); Mean Corpuscular Hemoglobin 31 pg (27-31); Mean Corpuscular Volume 90 fL (80-97); Mean Platelet Volume 9.7 fL (7.4-10.4); Platelet Count 578 10^3/ul (150-450); Red Blood Count 3.68 10^6/ul (4.00-5.40); Red Cell Distribution Width 13 % (10.5-15); White Blood Count 11.8 10^3/ul (3.5-10.8)
[2018-10-31 07:15] LABS: BUN/Creatinine Ratio 19.7 (8-20); Calcium 8.6 mg/dL (8.6-10.3); EGFR African American 120.3 (>60); EGFR Non-African American 99.4 (>60); Magnesium 1.9 mg/dL (1.9-2.7); Potassium 4.1 mmol/L (3.5-5.0)
[2018-10-31 07:48] LABS: ABS Basophils 0 10^3/ul (0-0.2); ABS Eosinophils 0 10^3/ul (0-0.6); ABS Lymphocytes 1.3 10^3/ul (1.0-4.8); ABS Neutrophils 9.5 10^3/ul (1.5-7.7); ABS Nucleated RBC 0 10^3/ul; Eosinophil % 0 %; Nucleated Red Blood Cells % 0
--- NOTE | 2018-10-31 11:22 | PN ---
Subjective Date of Service: 10/31/18 Interval History: Patient seen and examined. Feeling much improved. Has been tolerating clears without vomiting today. Discussed cortisol level at length. Patient and very interested in talking with endocrine to assess findings. Denies fevers or chills, no SOB, no chest pain. No overnight events. Family History: Findings - Father: bladder cancer, Mother: Parkinson's disease Social History: Findings - Lives at home with , former smoker, occasional alcohol use. 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 Objective Active Medications: Acetaminophen (Tylenol Tab*) 650 mg PO Q6H PRN PRN Reason: headache or fever Last Admin: 10/29/18 15:00 Dose: 650 mg Enoxaparin Sodium (Lovenox(*)) 40 mg SUBCUT Q24H [facility] Last Admin: 10/31/18 05:47 Dose: 40 mg Hydromorphone HCl (Dilaudid Inj1s*) 0.5 mg IV SLOW PU Q4H PRN PRN Reason: PAIN Last Admin: 10/31/18 05:47 Dose: 0.5 mg Potassium Chloride/Sodium Chloride (Ns 0.9% W/ 40 Meq Kcl 1000 Ml*) 1,000 mls @ 100 mls/hr IV PER RATE [facility] Last Admin: 10/31/18 04:59 Dose: 100 mls/hr Lorazepam (Ativan Inj*) 1 mg IV PUSH Q3H PRN PRN Reason: nausea/vomiting not relieved Last Admin: 10/31/18 02:51 Dose: 1 mg Ondansetron HCl (Zofran Inj*) 8 mg IV Q4H PRN PRN Reason: NAUSEA/VOMITING Last Admin: 10/31/18 05:46 Dose: 8 mg Oxycodone/Acetaminophen (Percocet 5/325 Tab*) 1 tab PO Q6H PRN PRN Reason: PAIN Last Admin: 10/31/18 02:53 Dose: 1 tab Pantoprazole Sodium (Protonix Iv*) 40 mg IV Q24H [facility] Last Admin: 10/30/18 08:35 Dose: 40 mg Prochlorperazine Edisylate (Compazine Inj*) 5 mg IV Q6H PRN PRN Reason: NAUSEA/VOMITING Last Admin: 10/31/18 02:47 Dose: 5 mg Scopolamine (Transderm-Scop 1.5 Mg Patch*) 1 patch TRANSDERM Q72H [facility] Last Admin: 10/29/18 12:04 Dose: 1 patch Trimethobenzamide HCl (Tigan Cap*) 300 mg PO Q12H PRN PRN Reason: NAUSEA/VOMITING Last Admin: 10/30/18 05:39 Dose: 300 mg Vital Signs - 8 hr 10/31/18 10/31/18 10/31/18 04:00 05:00 05:47 Temperature Pulse Rate Respiratory 20 20 18 Rate Blood Pressure (mmHg) O2 Sat by Pulse Oximetry 10/31/18 07:48 Temperature 97.5 F Pulse Rate 62 Respiratory 17 Rate Blood Pressure 120/73 (mmHg) O2 Sat by Pulse 98 Oximetry Oxygen Devices in Use Now: None Appearance: alert, NAD Eyes: No Scleral Icterus, PERRLA Ears/Nose/Mouth/Throat: NL Teeth, Lips, Gums, Mucous Membranes Moist Neck: NL Appearance and Movements; NL JVP, Trachea Midline Respiratory: Symmetrical Chest Expansion and Respiratory Effort, Clear to Auscultation Cardiovascular: NL Sounds; No Murmurs; No JVD, RRR, No Edema Abdominal: NL Sounds; No Tenderness; No Distention Extremities: No Edema, No Clubbing, Cyanosis Neurological: Alert and Oriented x 3, NL Sensation Nutrition: - - tolerating CLD Result Diagrams: 10/31/18 06:31 10/31/18 06:31 Additional Lab and Data: Laboratory Results - last 24 hr 10/26/18 10/26/18 10/26/18 20:06 20:06 20:06 WBC 7.2 RBC 4.18 Hgb 13.1 Hct 39 MCV 93 MCH 31 MCHC 34 RDW 13 Plt Count 1042 H D MPV 8.5 Neut % (Auto) 71.5 Lymph % (Auto) 20.6 [place] % (Auto) 4.6 Eos % (Auto) 2.2 Baso % (Auto) 1.1 Absolute Neuts (auto) 5.1 Absolute Lymphs (auto) 1.5 Absolute Monos (auto) 0.3 Absolute Eos (auto) 0.2 Absolute Basos (auto) 0.1 Absolute Nucleated RBC 0 Nucleated RBC % 0 Hem Pathologist Commnt INR (Anticoag Therapy) 1.06 H Sodium 138 Potassium 3.6 D Chloride 101 Carbon Dioxide 24 Anion Gap 13 H BUN 11 Creatinine 0.81 Est GFR ( Amer) 86.7 Est GFR (Non-Af Amer) 71.6 BUN/Creatinine Ratio 13.6 Glucose 195 H Lactic Acid Calcium 10.2 Phosphorus Magnesium Total Bilirubin 0.30 AST 16 ALT 15 Alkaline Phosphatase 85 Troponin I 0.00 C-Reactive Protein 10.53 H Total Protein 8.3 Albumin 4.6 Globulin 3.7 Albumin/Globulin Ratio 1.2 Lipase 32 Urine Color Urine Appearance Urine pH Ur Specific [place] Urine Protein Urine Ketones Urine Blood Urine Nitrate Urine Bilirubin Urine Urobilinogen Ur Leukocyte Esterase Urine Glucose 10/26/18 10/27/18 10/27/18 20:06 00:55 05:32 WBC 12.5 H RBC 3.52 L Hgb 10.7 L Hct 33 L MCV 93 MCH 31 MCHC 33 RDW 13 Plt Count 877 H D MPV 8.7 Neut % (Auto) 92.3 Lymph % (Auto) 6.3 [place] % (Auto) 1.1 Eos % (Auto) 0 Baso % (Auto) 0.3 Absolute Neuts (auto) 11.5 H Absolute Lymphs (auto) 0.8 L Absolute Monos (auto) 0.1 Absolute Eos (auto) 0 Absolute Basos (auto) 0 Absolute Nucleated RBC 0 Nucleated RBC % 0 Hem Pathologist Commnt INR (Anticoag Therapy) Sodium Potassium Chloride Carbon Dioxide Anion Gap BUN Creatinine Est GFR ( Amer) Est GFR (Non-Af Amer) BUN/Creatinine Ratio Glucose Lactic Acid 2.8 H* 2.0 Calcium Phosphorus Magnesium Total Bilirubin AST ALT Alkaline Phosphatase Troponin I C-Reactive Protein Total Protein Albumin Globulin Albumin/Globulin Ratio Lipase Urine Color Urine Appearance Urine pH Ur Specific [place] Urine Protein Urine Ketones Urine Blood Urine Nitrate Urine Bilirubin Urine Urobilinogen Ur Leukocyte Esterase Urine Glucose 10/27/18 10/27/18 10/27/18 05:32 15:51 18:02 WBC RBC Hgb 10.6 L Hct 32 L MCV MCH MCHC RDW Plt Count MPV Neut % (Auto) Lymph % (Auto) [place] % (Auto) Eos % (Auto) Baso % (Auto) Absolute Neuts (auto) Absolute Lymphs (auto) Absolute Monos (auto) Absolute Eos (auto) Absolute Basos (auto) Absolute Nucleated RBC Nucleated RBC % Hem Pathologist Commnt INR (Anticoag Therapy) Sodium 140 Potassium 3.7 Chloride 106 Carbon Dioxide 22 Anion Gap 12 H BUN 11 Creatinine 0.74 Est GFR ( Amer) 96.2 Est GFR (Non-Af Amer) 79.5 BUN/Creatinine Ratio 14.9 Glucose 188 H Lactic Acid Calcium 9.1 Phosphorus 4.3 Magnesium 1.8 L Total Bilirubin AST ALT Alkaline Phosphatase Troponin I C-Reactive Protein Total Protein Albumin Globulin Albumin/Globulin Ratio Lipase Urine Color Yellow Urine Appearance Clear Urine pH 6.0 Ur Specific [place] 1.017 Urine Protein Negative Urine Ketones Negative Urine Blood Negative Urine Nitrate Negative Urine Bilirubin Negative Urine Urobilinogen Negative Ur Leukocyte Esterase Negative Urine Glucose 1+(50 mg/dl) A Microbiology and Other Data: Microbiology 10/27/18 16:32 Gastric Fluid Gastric Occult Blood - Final 10/26/18 20:05 Stool Stool Gross Appearance - Final 10/26/18 20:05 Stool Stool Lactoferrin - Final 10/26/18 20:05 Stool Stool Gross Appearance - Final 10/26/18 20:05 Stool Shiga Toxin I & II - Final Negative Shiga Toxin 1 & 2 10/26/18 20:05 Stool Stool Gross Appearance - Final 10/26/18 20:05 Stool C. difficile DNA Amplification - Final 027 Presumptive NEGATIVE Toxigenic C.diff NEGATIVE Assess/Plan/Problems-Billing Assessment: 63 year old female presenting with 6th episode of intractable nausea and vomiting since onset April 2017. Recent resection of well differentiated neuroendocrine tumor at [place] 10/12. CT abd/pelvis with IV but not po contrast concerning for pancreatic 3.7x3.4x3.1 cm pancreatic pseudocyst likely, per GI Dr. Johnson, a post-operative complication due to pancreatic duct leak. - Patient Problems (1) Pancreatic duct leak Code(s): K86.89 - OTHER SPECIFIED DISEASES OF PANCREAS SNOMED Code(s): 637094957 Comment: - Discussed with Dr. Jovel this morning, will continue to hold off on additional imaging for now - Diet advaced yesterday and tolerating, will continue CLD - No fevers or significant leukocytosis to suggest infection - Will continue to treat/monitor patient here and communicate with Dr. Briggs at [place] as needed. (2) Nausea & vomiting Code(s): R11.2 - NAUSEA WITH VOMITING, UNSPECIFIED SNOMED Code(s): 80028343 Comment: - Seems to be responding to decadron started yesterday with scop patch - Continue CLD, do not want to advance too quickly - Considering PPN, however patient is able to tolerate CLD since last night, so will hold off for now - PPI daily - Consider adrenal insufficiency in the differential given low AM cortisol today of 1.26 - Not likely pancreatitis, lipase is 39 (3) Neuroendocrine cancer Code(s): C7A.8 - OTHER MALIGNANT NEUROENDOCRINE TUMORS SNOMED Code(s): 346703260812434 Comment: - Per reports, well differentiated, pT1 N1 - final patho pending - Dr. Briggs @ [facility] for f/u (4) Thrombocytosis after splenectomy Code(s): R79.89 - OTHER SPECIFIED ABNORMAL FINDINGS OF BLOOD CHEMISTRY; Z90.81 - ACQUIRED ABSENCE OF SPLEEN SNOMED Code(s): 800742836 Comment: - Continue lovenox per recs for 28 days total - PLTS continuing to trend down; 578 today (5) Adrenal insufficiency Code(s): E27.40 - UNSPECIFIED ADRENOCORTICAL INSUFFICIENCY SNOMED Code(s): 918220856 Comment: - AM cortisol supressed in August at 6.64 - Today's level is 1.26 - Consult with Dr. Goode planned for tomorrow (6) Hypomagnesemia Code(s): E83.42 - HYPOMAGNESEMIA SNOMED Code(s): 992276925 Comment: - Continue repletion (7) Electrolyte imbalance Code(s): E87.8 - OTH DISORDERS OF ELECTROLYTE AND FLUID BALANCE, NEC SNOMED Code(s): 409911278 Comment: - Sodium remains low, potassium corrected - s/p 6 k riders and 4 gm mag, NS with 40KCL - Conitnue to follow daily lytes (8) DVT prophylaxis Code(s): ATR6688 - SNOMED Code(s): 206532973 Comment: - On lovenox (needs to stay on for 28 days post-op for thrombocytosis) - No bloody or coffee ground emesis, does not appear to have active GI bleeding - Continue PPI, especially while on decadron (9) Full code status Code(s): Z78.9 - OTHER SPECIFIED HEALTH STATUS SNOMED Code(s): 556983414 Status and Disposition: Inpatient, condition: progressing/improving.
[2018-10-31] MEDS: Pantoprazole IV* 40 MG IV SCH (11:57)
[2018-10-31] MEDS ORDERED: Cosyntropin* 0.25 MG VIAL IV ONE (16:52)
[2018-11-01] MEDS: NS 0.9% w/ 40 Meq KCL 1000 ML* 1,000 ML IV SCH ×2 (01:47→12:45)
[2018-11-01] MEDS: Enoxaparin(*) 40 MG/0.4 ML SYR SUBCUT SCH (04:26)
[2018-11-01 05:45] LABS: Hematocrit 33 % (35-47); Hemoglobin 11.4 g/dl (12.0-16.0); Mean Corpuscular HGB Conc 34 g/dl (31-36); Mean Corpuscular Hemoglobin 32 pg (27-31); Mean Corpuscular Volume 92 fL (80-97); Mean Platelet Volume 9.8 fL (7.4-10.4); Platelet Count 554 10^3/ul (150-450); Red Blood Count 3.61 10^6/ul (4.00-5.40); Red Cell Distribution Width 13 % (10.5-15); White Blood Count 7.8 10^3/ul (3.5-10.8)
[2018-11-01 06:12] LABS: BUN/Creatinine Ratio 15.7 (8-20); Calcium 8.7 mg/dL (8.6-10.3); EGFR African American 102.6 (>60); EGFR Non-African American 84.8 (>60); Magnesium 1.7 mg/dL (1.9-2.7); Potassium 3.7 mmol/L (3.5-5.0)
[2018-11-01 06:25] LABS: ABS Basophils 0.1 10^3/ul (0-0.2); ABS Eosinophils 0.1 10^3/ul (0-0.6); ABS Monocytes 0.6 10^3/ul (0-0.8); ABS Nucleated RBC 0 10^3/ul; Eosinophil % 1.3 %; Lymphocyte % 25.4 %; Nucleated Red Blood Cells % 0
[2018-11-01] MEDS: Scopolamine 1.5 mg* PATCH TRANSDERM SCH (08:16)
[2018-11-01] MEDS: Pantoprazole IV* 40 MG IV SCH (08:16)
[2018-11-01] MEDS ORDERED: Magnesium Sulfate 1 GM IV* 1 GM/100 ML BAG IV ONE (09:30)
[2018-11-01] MEDS: Ondansetron INJ* 2 MG/ML VIAL IV PRN ×2 (11:12→16:10)
--- NOTE | 2018-11-01 11:43 | PN ---
Subjective Date of Service: 11/01/18 Interval History: Patient seen and examined. States she has no vomiting and no nausea and tolerating CLD in the AM, however, within a few hours, patient started vomiting again. Remains afebrile, appears fatigued. Increasing abdominal pain. Ambulated several times around the floor yesterday without issue, currently feeling too weak to walk. Family History: Findings - Father: bladder cancer, Mother: Parkinson's disease Social History: Findings - Lives at home with , former smoker, occasional alcohol use. 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 Objective Active Medications: Acetaminophen (Tylenol Tab*) 650 mg PO Q6H PRN PRN Reason: headache or fever Last Admin: 10/29/18 15:00 Dose: 650 mg Enoxaparin Sodium (Lovenox(*)) 40 mg SUBCUT Q24H [facility] Last Admin: 11/01/18 04:26 Dose: 40 mg Hydromorphone HCl (Dilaudid Inj1s*) 0.5 mg IV SLOW PU Q4H PRN PRN Reason: PAIN Last Admin: 10/31/18 19:48 Dose: 0.5 mg Potassium Chloride/Sodium Chloride (Ns 0.9% W/ 40 Meq Kcl 1000 Ml*) 1,000 mls @ 100 mls/hr IV PER RATE [facility] Last Admin: 11/01/18 01:47 Dose: 100 mls/hr Lorazepam (Ativan Inj*) 1 mg IV PUSH Q3H PRN PRN Reason: nausea/vomiting not relieved Last Admin: 10/31/18 19:48 Dose: 1 mg Ondansetron HCl (Zofran Inj*) 8 mg IV Q4H PRN PRN Reason: NAUSEA/VOMITING Last Admin: 11/01/18 11:12 Dose: 8 mg Oxycodone/Acetaminophen (Percocet 5/325 Tab*) 1 tab PO Q6H PRN PRN Reason: PAIN Last Admin: 10/31/18 02:53 Dose: 1 tab Pantoprazole Sodium (Protonix Iv*) 40 mg IV Q24H [facility] Last Admin: 11/01/18 08:16 Dose: 40 mg Prochlorperazine Edisylate (Compazine Inj*) 5 mg IV Q6H PRN PRN Reason: NAUSEA/VOMITING Last Admin: 10/31/18 02:47 Dose: 5 mg Scopolamine (Transderm-Scop 1.5 Mg Patch*) 1 patch TRANSDERM Q72H [facility] Last Admin: 11/01/18 08:16 Dose: 1 patch Trimethobenzamide HCl (Tigan Cap*) 300 mg PO Q12H PRN PRN Reason: NAUSEA/VOMITING Last Admin: 10/30/18 05:39 Dose: 300 mg Vital Signs - 8 hr 11/01/18 11/01/18 07:40 08:00 Temperature 98.6 F Pulse Rate 59 Respiratory 16 18 Rate Blood Pressure 124/73 (mmHg) O2 Sat by Pulse 98 Oximetry Oxygen Devices in Use Now: None Appearance: fatigued, distressed Eyes: No Scleral Icterus, PERRLA Ears/Nose/Mouth/Throat: - - dry oral mucosa Respiratory: Symmetrical Chest Expansion and Respiratory Effort, Clear to Auscultation Cardiovascular: NL Sounds; No Murmurs; No JVD, RRR, No Edema Abdominal: - - diffuse mild tenderness, no distension, hyperactive BS Extremities: No Edema, No Clubbing, Cyanosis Skin: No Rash or Ulcers Neurological: Alert and Oriented x 3 Nutrition: - - CLD, now NPO Result Diagrams: 11/01/18 05:28 11/01/18 05:28 Additional Lab and Data: Laboratory Results - last 24 hr 10/26/18 10/26/18 10/26/18 20:06 20:06 20:06 WBC 7.2 RBC 4.18 Hgb 13.1 Hct 39 MCV 93 MCH 31 MCHC 34 RDW 13 Plt Count 1042 H D MPV 8.5 Neut % (Auto) 71.5 Lymph % (Auto) 20.6 [place] % (Auto) 4.6 Eos % (Auto) 2.2 Baso % (Auto) 1.1 Absolute Neuts (auto) 5.1 Absolute Lymphs (auto) 1.5 Absolute Monos (auto) 0.3 Absolute Eos (auto) 0.2 Absolute Basos (auto) 0.1 Absolute Nucleated RBC 0 Nucleated RBC % 0 Hem Pathologist Commnt INR (Anticoag Therapy) 1.06 H Sodium 138 Potassium 3.6 D Chloride 101 Carbon Dioxide 24 Anion Gap 13 H BUN 11 Creatinine 0.81 Est GFR ( Amer) 86.7 Est GFR (Non-Af Amer) 71.6 BUN/Creatinine Ratio 13.6 Glucose 195 H Lactic Acid Calcium 10.2 Phosphorus Magnesium Total Bilirubin 0.30 AST 16 ALT 15 Alkaline Phosphatase 85 Troponin I 0.00 C-Reactive Protein 10.53 H Total Protein 8.3 Albumin 4.6 Globulin 3.7 Albumin/Globulin Ratio 1.2 Lipase 32 Urine Color Urine Appearance Urine pH Ur Specific [place] Urine Protein Urine Ketones Urine Blood Urine Nitrate Urine Bilirubin Urine Urobilinogen Ur Leukocyte Esterase Urine Glucose 10/26/18 10/27/18 10/27/18 20:06 00:55 05:32 WBC 12.5 H RBC 3.52 L Hgb 10.7 L Hct 33 L MCV 93 MCH 31 MCHC 33 RDW 13 Plt Count 877 H D MPV 8.7 Neut % (Auto) 92.3 Lymph % (Auto) 6.3 [place] % (Auto) 1.1 Eos % (Auto) 0 Baso % (Auto) 0.3 Absolute Neuts (auto) 11.5 H Absolute Lymphs (auto) 0.8 L Absolute Monos (auto) 0.1 Absolute Eos (auto) 0 Absolute Basos (auto) 0 Absolute Nucleated RBC 0 Nucleated RBC % 0 Hem Pathologist Commnt INR (Anticoag Therapy) Sodium Potassium Chloride Carbon Dioxide Anion Gap BUN Creatinine Est GFR ( Amer) Est GFR (Non-Af Amer) BUN/Creatinine Ratio Glucose Lactic Acid 2.8 H* 2.0 Calcium Phosphorus Magnesium Total Bilirubin AST ALT Alkaline Phosphatase Troponin I C-Reactive Protein Total Protein Albumin Globulin Albumin/Globulin Ratio Lipase Urine Color Urine Appearance Urine pH Ur Specific [place] Urine Protein Urine Ketones Urine Blood Urine Nitrate Urine Bilirubin Urine Urobilinogen Ur Leukocyte Esterase Urine Glucose 10/27/18 10/27/18 10/27/18 05:32 15:51 18:02 WBC RBC Hgb 10.6 L Hct 32 L MCV MCH MCHC RDW Plt Count MPV Neut % (Auto) Lymph % (Auto) [place] % (Auto) Eos % (Auto) Baso % (Auto) Absolute Neuts (auto) Absolute Lymphs (auto) Absolute Monos (auto) Absolute Eos (auto) Absolute Basos (auto) Absolute Nucleated RBC Nucleated RBC % Hem Pathologist Commnt INR (Anticoag Therapy) Sodium 140 Potassium 3.7 Chloride 106 Carbon Dioxide 22 Anion Gap 12 H BUN 11 Creatinine 0.74 Est GFR ( Amer) 96.2 Est GFR (Non-Af Amer) 79.5 BUN/Creatinine Ratio 14.9 Glucose 188 H Lactic Acid Calcium 9.1 Phosphorus 4.3 Magnesium 1.8 L Total Bilirubin AST ALT Alkaline Phosphatase Troponin I C-Reactive Protein Total Protein Albumin Globulin Albumin/Globulin Ratio Lipase Urine Color Yellow Urine Appearance Clear Urine pH 6.0 Ur Specific [place] 1.017 Urine Protein Negative Urine Ketones Negative Urine Blood Negative Urine Nitrate Negative Urine Bilirubin Negative Urine Urobilinogen Negative Ur Leukocyte Esterase Negative Urine Glucose 1+(50 mg/dl) A Microbiology and Other Data: Microbiology 10/27/18 16:32 Gastric Fluid Gastric Occult Blood - Final 10/26/18 20:05 Stool Stool Gross Appearance - Final 10/26/18 20:05 Stool Stool Lactoferrin - Final 10/26/18 20:05 Stool Stool Gross Appearance - Final 10/26/18 20:05 Stool Shiga Toxin I & II - Final Negative Shiga Toxin 1 & 2 10/26/18 20:05 Stool Stool Gross Appearance - Final 10/26/18 20:05 Stool C. difficile DNA Amplification - Final 027 Presumptive NEGATIVE Toxigenic C.diff NEGATIVE Assess/Plan/Problems-Billing Assessment: 63 year old female presenting with 6th episode of intractable nausea and vomiting since onset April 2017. Recent resection of well differentiated neuroendocrine tumor at [place] 10/12. CT abd/pelvis with IV but not po contrast concerning for pancreatic 3.7x3.4x3.1 cm pancreatic pseudocyst likely, per GI Dr. Johnson, a post-operative complication due to pancreatic duct leak. - Patient Problems (1) Pancreatic duct leak Code(s): K86.89 - OTHER SPECIFIED DISEASES OF PANCREAS SNOMED Code(s): 867356251 Comment: - Given that patient has started vomiting again, will communicate with Dr. Briggs at [place] regarding transfer. (2) Nausea & vomiting Code(s): R11.2 - NAUSEA WITH VOMITING, UNSPECIFIED SNOMED Code(s): 92274097 Comment: - Intractable again and not responding to combination of antiemetics and decadron - Continue IVF, plan for transfer to [place], cannot order PPN to start at this late time of the day as per pharmacy - PPI daily - Adrenal insufficiency ruled out, please see note from Dr. Dong (3) Neuroendocrine cancer Code(s): C7A.8 - OTHER MALIGNANT NEUROENDOCRINE TUMORS SNOMED Code(s): 859587036252982 Comment: - Per reports, well differentiated, pT1 N1 - Dr. Barnett is primary surgeon at [place] (4) Thrombocytosis after splenectomy Code(s): R79.89 - OTHER SPECIFIED ABNORMAL FINDINGS OF BLOOD CHEMISTRY; Z90.81 - ACQUIRED ABSENCE OF SPLEEN SNOMED Code(s): 014664849 Comment: - Continue lovenox per recs for 28 days total - PLTS continuing to trend down; 554 today (5) Adrenal insufficiency Code(s): E27.40 - UNSPECIFIED ADRENOCORTICAL INSUFFICIENCY SNOMED Code(s): 123501757 Comment: - Ruled out with ACTH stim test yesterday - Consult with Dr. Letitia richardson (6) Hypomagnesemia Code(s): E83.42 - HYPOMAGNESEMIA SNOMED Code(s): 965740616 Comment: - Continue repletion (7) Electrolyte imbalance Code(s): E87.8 - OTH DISORDERS OF ELECTROLYTE AND FLUID BALANCE, NEC SNOMED Code(s): 463748254 Comment: - s/p 6 k riders and 5 gm mag, NS with 40KCL - Lytes mostly corrected on AM labs but has been profusely vomiting since - Switch back to LR with 20KCL @125/hr (8) DVT prophylaxis Code(s): WTL5502 - SNOMED Code(s): 723571229 Comment: - On lovenox (needs to stay on for 28 days post-op for thrombocytosis) - No bloody or coffee ground emesis, does not appear to have active GI bleeding - Continue PPI, especially while on decadron (9) Full code status Code(s): Z78.9 - OTHER SPECIFIED HEALTH STATUS SNOMED Code(s): 625461653 Status and Disposition: Transfer to [facility] bed #[id number] under the care of Dr. Barnett
[2018-11-01] MEDS: LORazepam INJ* 2 MG/ML 1 ML VIAL IV PUSH PRN ×3 (11:50→17:28)
[2018-11-01 11:51] VITALS: BP 148/80
[2018-11-01] MEDS ORDERED: Dexamethasone IV* 4 MG/ML 1 ML (4 MG) IV SLOW PU ONE (12:40)
[2018-11-01] MEDS: PROCHLORPERAZINE INJ 5 MG/ML 2 ML VIAL IV PRN (13:05)
--- NOTE | 2018-11-01 13:07 | CONSULT ---
Consult Consult: [facility] Inpatient Consult Note Date of Consult: 10/31/18 Reason for Consult: low cortisol Reason for Admission: ASSESSMENT: 63 yo F with intractible nausea/vomiting syndrome and recent resection of pancreatic neuroendocrine tumor, now admitted for recurrent nausea/ vomiting. Per report, her pNET was confined to the pancreas and was not known to be secreting a hormone (gastrin, VIP, glucagon, etc) that could account for the patient's symptoms. We have repeated these tests during this admission to exclude the possibility of this. Adrenal insufficiency and excess have been excluded by ACTH stimulation and dexamethasone suppression testing, respectively. These tests also exclude aldosterone deficiency ([place]'s). PLAN: SUBJECTIVE: History of Present Illness: Past Medical History: Medications Prior to Admission: Inpatient Medications: Allergies/Intolerances: Social History: Family History: Review of Systems: OBJECTIVE: Vital Signs: General: alert, pleasant, oriented, no distress ENT: neck supple, no thyromegaly, no bruit is heard Chest: CTAB, no wheezing or crackles CV: RRR, no murmur Abdomen: soft, non-tender Extremities: no edema, distal pulses intact Skin: warm, dry, no rash Neuro: grossly intact motor/sensory in extremities Psych: restricted affect, pleasant Labs:
[2018-11-01] MEDS ORDERED: Magnesium Sulfate 2 GM IV* 2 GM/50 ML BAG IVPB ONE (15:30)
[2018-11-01] MEDS ORDERED: Potassium Chloride IV* 20 MEQ in Lactated Ringers 1000 ML Bag* 1,000 ML IVPB SCH (16:00)
--- NOTE | 2018-11-01 16:52 | TRS ---
CC: Dr. Margarita Vasques; Dr. Morteza Dong; Fidencio Garcia; Dr. Briggs, [place] * DATE OF ADMISSION: 10/26/2018. DATE OF TRANSFER: 11/01/2018. ATTENDING PHYSICIAN FOR THIS ADMISSION: Dr. Justice Centeno * (dictated by Calvin Mascorro, YASMIN). PRIMARY CARE PHYSICIAN: Fidencio Garcia. CONSULTING METAL DRILLING MACHINE OPERATOR: Dr. Margarita Vasques. SENIOR RADIATION THERAPIST: Dr. Morteza Dong. HOSPITAL COURSE: Please refer to the admission history and physical by Dr. Patel. In short, this is Florecita Carrasco. She is a 63-year-old female patient who has had a complex medical course over the past couple of months. She was recently diagnosed with intractable vomiting of unclear etiology. The patient was sent by Dr. Vasques to Dr. Granda at [place] for an endoscopic ultrasound for concern of pancreatitis. However, it was shown that she had a pancreatic tail lesion. She had a fine needle aspiration back in August that showed a 2 cm hypoechoic mass. She has endoscopic robotic surgery with Dr. Alexys Briggs on 10/12/2018. Pathology at that time showed a well-differentiated neuroendocrine tumor with lymph node involvement of one node. The patient stated that she had improvement of her symptoms after surgery for a few weeks; however, she began having progressive nausea and vomiting again. The patient was admitted to [facility] for her intractable nausea and vomiting on the and although she initially responded well to fluids, antiemetics, and pancreatic rest, today, on the , she started with intractable vomiting again. At this point, it was unclear whether this related to her recent surgery. Her CAT scan from this admission showed a pancreatic pseudocyst which is likely secondary to her recent resection surgery and splenectomy. The patient was hydrated. Her electrolytes were difficult to correct and although she had an easier time over the last 24 hours and was tolerating clear liquids today, she is quite weak again, unable to ambulate and having intractable nausea and vomiting. I reached out to Dr. Briggs, who we have been communicating with throughout this hospitalization, and he is in agreement that the patient should be transferred to [facility] for further care from the surgical team there. During the course of this hospitalization, it was also noted that the patient had a morning cortisol level that was somewhat suppressed. We had administered the patient Decadron in the time before for her intractable vomiting, so essentially producing a Dexamethasone suppression test which was normal. She also had an ACTH stim which also revealed normal levels ruling out any concern for [place]'s disease. Please refer to today's progress note for review of systems and physical exam and medications/MAR. LABORATORY DATA: Most recent laboratories dated 11/01/2018: WBC 7.8, RBC 3.61 , hemoglobin 11.4, hematocrit 33, platelets 554; sodium 134 now, potassium 3.7, chloride 102, BUN 11, creatinine 0.70, GFR 84.8, glucose 132, calcium 8.7, magnesium 1.7, lipase 39; INR 1.06. Urinalysis is negative for any acute infective process. IMAGING STUDIES: CT of the abdomen: Impression as noted above. DISCHARGE DIAGNOSES: 1. Pancreatic duct leak with pancreatic pseudocyst. 2. Intractable nausea, vomiting, and diarrhea. 3. Neuroendocrine tumor, status post resection. 4. Thrombocytosis following splenectomy. 5. Potential for adrenal insufficiency now ruled out. 6. Hypomagnesemia, hyponatremia, hypokalemia currently corrected, status post 6 K riders, 5 gm of mag sulfate, and continue IV fluids. DISPOSITION: Patient will be transferred to [facility] under the care of Dr. Briggs. Bed assignment is [facility]. The patient is currently pending confirmation of transportation via [facility] with her IV fluids and prn medications for her transport. To all the above providers, we thank you all for your participation in the care of this very complex patient. TIME SPENT: Approximately 85 minutes coordinating transfer and discharge disposition. CALVIN MASCORRO, YASMIN [id number]/[facility] #: [id number] [place]
[2018-11-01] MEDS ORDERED: LORazepam INJ* 2 MG/ML 1 ML VIAL IV PUSH ONE (17:11)
[2018-11-02 19:54] LABS: Gastrin 68 pg/mL
== END 2018-11-01 18:00 | disposition short-term general hospital (02) | DRG 813 ==
LOC: ED 19:19 → MED 21:50
PROVIDERS: ADMIT Internal Medicine; ATTEND Internal Medicine
DX: E89.89 Other postprocedural endocrine and metabolic complications and disorders (principal); K86.3 Pseudocyst of pancreas; E87.2 Acidosis; E27.40 Unspecified adrenocortical insufficiency; C7A.8 Other malignant neuroendocrine tumors; E87.1 Hypo-osmolality and hyponatremia; K86.89 Other specified diseases of pancreas; E83.42 Hypomagnesemia; R11.2 Nausea with vomiting, unspecified; D47.3 Essential (hemorrhagic) thrombocythemia; D64.9 Anemia, unspecified; E87.6 Hypokalemia; R19.7 Diarrhea, unspecified; Z98.890 Other specified postprocedural states; Z80.52 Family history of malignant neoplasm of bladder; Z82.69 Family history of other diseases of the musculoskeletal system and connective tissue; Z87.891 Personal history of nicotine dependence; Z90.81 Acquired absence of spleen; Z79.899 Other long term (current) drug therapy; Z88.1 Allergy status to other antibiotic agents; Z88.5 Allergy status to narcotic agent
CPT/HCPCS: 36415; 70450; 74019; 74177; 80048; 80053; 81003; 82271; 82533; 82941; 82943; 83605; 83615; 83630; 83690; 83735; 84100; 84484; 84586; 85014; 85018; 85025; 85060; 85610; 86140; 87040; 87045; 87046; 87493; 87899; 93005; 99284; A9270-GY; J0780; J0834; J1100; J1170; J1240; J1630; J1650; J2060; J2405; J2765; J3250; J3475; J3480; Q9967

== ENCOUNTER 2018-11-14 15:08 | Inpatient (IN) | payer BC ==
[2018-11-14] MEDS ORDERED: PROCHLORPERAZINE INJ 5 MG/ML 2 ML VIAL IV PRN (15:30)
[2018-11-14] MEDS ORDERED: LORazepam INJ* 2 MG/ML 1 ML VIAL IV ONE (15:30)
--- NOTE | 2018-11-14 15:33 | ED ---
GI/ HPI - HPI Summary HPI Summary: Pt is a 63 y/o F presenting to the ED with a chief complaint of nausea/ vomiting. She has been here previously and they sent her to [facility]. She had part of her pancreas removed and was d/francesca less than a week ago. Onset today around 1300 she was nauseous and started vomiting. Otherwise, she has been eating a little and keeping up with liquids, as well as urinating and having normal bowel movements. 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 - Onset/Duration: Started Hours Ago, Still Present Timing: Constant, Lasting Hours Severity: Moderate Current Severity: Moderate Pain Intensity: 5 Location of Pain: Diffuse Associated Signs and Symptoms: Positive: Nausea, Vomiting, Diaphoresis Aggravating Factor(s): Nothing Alleviating Factor(s): Nothing - Additional Pertinent History Primary Care Physician: [id number] - Allergy/Home Medications Allergies/Adverse Reactions: Allergies Allergy/AdvReac Type Severity Reaction Status Date / Time amoxicillin Allergy Rash And Verified 11/14/18 15:16 Itching clindamycin Allergy Nausea Verified 11/14/18 15:16 codeine AdvReac Nausea And Verified 11/14/18 15:16 Vomiting Home Medications: Home Medications LORazepam TAB(*) [Ativan 0.5 MG TAB (*)] 0.5 mg PO Q6H PRN 11/14/18 [History Confirmed 11/14/18] Oxycodone TAB(NF) [Oxycodone HCl 10 MG] 10 mg PO Q6H PRN 11/14/18 [History Confirmed 11/14/18] Prochlorperazine TAB* [Compazine Tab*] 5 mg PO Q6H PRN 11/14/18 [History Confirmed 11/14/18] oxyCODONE TAB* [Roxycodone TAB 5 mg*] 5 mg PO Q6H PRN 11/14/18 [History Confirmed 11/14/18] PMH/Surg Hx/FS Hx/Imm Hx Previously Healthy: No Endocrine/Hematology History: Denies: Hx Anticoagulant Therapy, Hx Diabetes Cardiovascular History: Denies: Hx Angina, Hx Cardiac Arrest, Hx Coronary Artery Disease, Hx Hypertension, Hx Myocardial Infarction Respiratory History: Denies: Hx Asthma, Hx Chronic Bronchitis, Hx Lung Cancer, Hx Pulmonary Embolism GI History: Reports: Hx Diverticulosis, Other GI Disorders - cyclic vomiting syndrome History: Denies: Hx Chronic Renal Failure, Hx Renal Disease Musculoskeletal History: Denies: Hx Arthritis, Hx Fibromyalgia Sensory History: Reports: Hx Contacts or Glasses Denies: Hx Cataracts, Hx Macular Degeneration, Hx Deafness, Hx Hearing Aid Opthamlomology History: Reports: Hx Contacts or Glasses Denies: Hx Cataracts, Hx Macular Degeneration Neurological History: Denies: Hx Headaches, Hx Seizures, Hx Transient Ischemic Attacks (TIA) Psychiatric History: Denies: Hx Anxiety, Hx Oppositional [place] Disorder, Hx Depression, Hx Community Mental Health Tx Infectious Disease History: No Infectious Disease History: Denies: Hx Clostridium Difficile, Hx of Known/Suspected MRSA, Hx Known/ Suspected VRE, Traveled Outside the [place] in Last 30 Days - Family History Known Family History: Negative: Cardiac Disease, Hypertension, Diabetes - Social History Alcohol Use: Occasionally Alcohol Amount: 3 beers Hx Substance Use: No Substance Use Type: Reports: None. Denies: Marijuana Hx Tobacco Use: Yes Smoking Status (MU): Light Every Day Tobacco Smoker Review of Systems Negative: Fever Positive: Abdominal Pain, Vomiting, Nausea All Other Systems Reviewed And Are Negative: Yes Physical Exam - Summary Physical Exam Summary: Appearance: The patient is ill-appearing in no acute distress and in no acute pain. Skin: The skin is warm and dry and skin color reflects adequate perfusion. HEENT: The head is normocephalic and atraumatic. The pupils are equal and reactive. The conjunctivae are clear and without drainage. Nares are patent and without drainage. Mouth reveals moist mucous membranes and the throat is without erythema and exudate. The external ears are intact. The ear canals are patent and without drainage. The tympanic membranes are intact. Neck: The neck is supple with full range of motion and non-tender. There are no carotid bruits. There is no neck vein distension. Respiratory: Chest is non-tender. Lungs are clear to auscultation and breath sounds are symmetrical and equal. Cardiovascular: Heart is regular rate and rhythm. There is no murmur or rub auscultated. There is no peripheral edema and pulses are symmetrical and equal. Abdomen: The abdomen is soft and non-tender. There are normal bowel sounds heard in all four quadrants and there is no organomegaly palpated. Musculoskeletal: There is no back tenderness noted. Extremities are non-tender with full range of motion. There is good capillary refill. There is no peripheral edema or calf tenderness elicited. Neurological: Patient is alert and oriented to person, place and time. The patient has symmetrical motor strength in all four extremities. Cranial nerves are grossly intact. Deep tendon reflexes are symmetrical and equal in all four extremities. Psychiatric: The patient has an appropriate affect and does not exhibit any anxiety or depression. Triage Information Reviewed: Yes Vital Signs On Initial Exam: Initial Vitals Temp Pulse Resp BP Pulse Ox 98 F 87 16 139/83 99 11/14/18 15:11 11/14/18 15:11 11/14/18 15:11 11/14/18 15:11 11/14/18 15:11 Vital Signs Reviewed: Yes Diagnostics - Vital Signs Vital Signs Temp Pulse Resp BP Pulse Ox 11/14/18 15:11 98 F 87 16 139/83 99 - Laboratory Result Diagrams: 11/14/18 15:40 11/14/18 15:40 Lab Statement: Any lab studies that have been ordered have been reviewed, and results considered in the medical decision making process. GIGU Course/Dx - Course Course Of Treatment: Ms. Carrasco started suffering another attack today. She has had several episodes of intractable nausea and vomiting involving admission to the hospital. During one of them in August she was found to have a mass in the tail of pancreas and was referred to [place] where she underwent surgery. This turned out to be a neuroendocrine tumor. She had another admission here in October for the same thing and was found to have a small pseudocyst. She was refractory to treatment here and the thought was that she might be leaking and need a stent. She was referred again to [place]. She did not require a stenting and was discharged last Wednesday. She's been doing okay until today approximately 1 week. She was certainly miserable on arrival and was treated with Ativan, Compazine and IV fluids which is what her says worked for her in [place]. She was a difficult stick and there was some delay in treatment because of that. She managed to Cipro while after that medication but it immediately on awakening she began to retch again. Dr. Peña was contacted for the hospitalist and requested that I consult with the GI doctors. I spoke with both Dr. Stratton and Dr. Meade who agreed that the patient should be admitted here if for intractable vomiting rather than being transferred to [place]. - Diagnoses Provider Diagnoses: Nausea & vomiting, Abdominal pain Discharge - Sign-Out/Discharge Documenting (check all that apply): Patient Departure - Discharge Plan Condition: Stable Disposition: ADMITTED TO [facility] - Billing Disposition and Condition Condition: STABLE Disposition: Admitted to [facility] - Attestation Statements Document Initiated by Scribe: Yes Documenting Scribe: Ana Doe Provider For Whom Scribe is Documenting (Include Credential): Sonny Cowart MD. Scribe Attestation: I, Ana Doe, scribed for Sonny Cowart MD. on 11/14/18 at 2105. Scribe Documentation Reviewed: Yes Provider Attestation: The documentation as recorded by the scribe, Ana Doe accurately reflects the service I personally performed and the decisions made by me, Sonny Cowart MD. Status of Scribe Document: Viewed Consult Consult: 1899 - Spoke with Dr. Stratton and Dr. Vasques about the pt's present condition. They both agree the pt should be admitted for further testing and evaluation. 1912 - Spoke with Dr. Patel about the pt's condition and previous consults; she [place] the [place] [facility] [place]
[2018-11-14 15:46] LABS: Hematocrit 38 % (35-47); Hemoglobin 12.8 g/dl (12.0-16.0); Mean Corpuscular HGB Conc 33 g/dl (31-36); Mean Corpuscular Hemoglobin 31 pg (27-31); Mean Corpuscular Volume 92 fL (80-97); Mean Platelet Volume 8.6 fL (7.4-10.4); Platelet Count 441 10^3/ul (150-450); Red Blood Count 4.14 10^6/ul (4.00-5.40); Red Cell Distribution Width 13 % (10.5-15); White Blood Count 6.7 10^3/ul (3.5-10.8)
[2018-11-14 16:06] LABS: Albumin 4.6 g/dL (3.2-5.2); Albumin/Globulin Ratio 1.6 (1-3); BUN/Creatinine Ratio 13.9 (8-20); C Reactive Protein 1.28 mg/L (<8.01); Calcium 9.9 mg/dL (8.6-10.3); EGFR African American 99.3 (>60); EGFR Non-African American 82.1 (>60); Globulin 2.8 g/dL (2-4); Potassium 3.8 mmol/L (3.5-5.0); Total Bilirubin 0.4 mg/dL (0.2-1.0); Total Protein 7.4 g/dL (6.4-8.9)
[2018-11-14 16:23] LABS: ABS Basophils 0.1 10^3/ul (0-0.2); ABS Eosinophils 0.1 10^3/ul (0-0.6); ABS Lymphocytes 1.3 10^3/ul (1.0-4.8); ABS Monocytes 0.2 10^3/ul (0-0.8); ABS Neutrophils 5.1 10^3/ul (1.5-7.7); ABS Nucleated RBC 0 10^3/ul; Eosinophil % 0.8 %; Lymphocyte % 19.9 %; Nucleated Red Blood Cells % 0
[2018-11-14] MEDS: NS 0.9% 1000 ML** 2,000 ML IV ONE (16:32)
[2018-11-14] MEDS ORDERED: Morphine INJ* 2 MG/ML 1 ML SYRINGE (TWO MG - NEW SYRINGE VERSION) IV PRN (19:30)
[2018-11-14] MEDS: NS 0.9% 1000 ML** 1,000 ML IV SCH (20:47)
--- NOTE | 2018-11-14 20:51 | HP ---
CC: Ann Marie Bishop NP; Dr. Vasques; Dr. Stratton HISTORY AND PHYSICAL: DATE OF ADMISSION: 11/14/18 PRIMARY CARE PROVIDER: Ann Marie Bishop NP CHIEF COMPLAINT: Abdominal pain, nausea and vomiting. HISTORY OF PRESENT ILLNESS: This is a 63-year-old female with a diagnosis of GI neuroendocrine tumor involving the pancreas, who is status post distal pancreatectomy and splenectomy in October 2018. She now comes to the emergency room because of persistent abdominal pain, nausea, and vomiting. The patient reports that prior to her surgery, she has had intermittent, recurrent, persistent, intractable nausea, vomiting, diarrhea, and abdominal pain. Initially after the surgery, the symptoms had resolved; however, they came back and most recently the patient was admitted to our hospital on 10/26/18 for similar symptoms. The patient now comes to our emergency room again with similar symptoms described as abdominal pain, intractable nausea and vomiting. For the nausea and vomiting, the patient does take Compazine; however, this did not help. The patient reports that her abdominal pain is at the left upper quadrant, 8/10, associated with nausea and vomiting. She ate a bagel earlier this morning, but was unable to keep it down and since then has had inability to tolerate anything oral including liquids. The patient has very decreased appetite as well as per , the patient all she does is sleep all day. The patient has no interest in other activities because she is just so tired. She has also had some weight loss throughout the entire episode for the past several months. The patient does not have any fevers, no chills. PAST MEDICAL/SURGICAL HISTORY: Includes GI neuroendocrine tumor, status post distal pancreas resection and splenectomy. HOME MEDICATIONS: Include: 1. Compazine 5 mg every 6 hours as needed. 2. Roxicodone 5 mg every 6 hours as needed. 3. Oxycodone 10 mg every 6 hours as needed. 4. Ativan 0.5 mg every 6 hours as needed with Compazine for nausea and vomiting. ALLERGIES: Include AMOXICILLIN, CLINDAMYCIN, CODEINE. FAMILY HISTORY: Father: Bladder cancer. Mother: Parkinson's disease. SOCIAL HISTORY: The patient currently lives at home with her . The patient is a former smoker, occasional alcohol use. REVIEW OF SYSTEMS: No fevers, no chills, she does have generalized weakness, fatigue, and malaise. There are no changes in her vision or hearing, no eye pain, no heat or cold intolerances, no constipation, no palpitations, no shortness of breath, no cough, no sputum production, no chest pain, no syncopal episodes, no dysuria, no hematuria, no hesitancy with urine, no joint aches or back pain. PHYSICAL EXAMINATION GENERAL: This is a thin-appearing female, appears chronically ill, appears tired, lying in ER stretcher, in no acute distress. Throughout my examination, the patient was noted to have vomiting x1 episode. VITAL SIGNS: Blood pressure 150/90, oxygenation 100% on room air, pulse of 70, temperature of 98 Fahrenheit, respiratory rate of 16. HEENT: Pupils are equal, round, and reactive to light. Atraumatic, normocephalic. Oral mucosa is dry, poor skin turgor. LUNGS: There is no tachypnea, no use of accessory muscles. HEART: No chest wall tenderness, regular rate and rhythm, no murmurs. ABDOMEN: Bowel sounds are normoactive in all 4 quadrants; abdomen is soft, nontender, nondistended. EXTREMITIES: No lower extremity edema, no calf tenderness. NEUROLOGICAL: Alert and oriented x3, speech is clear and coherent, tongue is midline, no facial droop, motor is 5/5 all 4 extremities. SKIN: There are no rashes or lesions, poor skin turgor. EMERGENCY ROOM COURSE: The patient was seen and evaluated, blood work was done. Imaging was ordered for an abdominal x-ray. The patient received IV fluid in the emergency room along with Compazine and Ativan. The emergency room physician spoke with the brake press operator, Dr. Stratton as well as Dr. Vasques regarding the case. Dr. Vasques to contact the [facility] where the patient had surgery done for further recommendations. IMPRESSION AND PLAN: 1. Intractable nausea and vomiting: This has been ongoing for the past several months even prior to her diagnosis of a neuroendocrine tumor and even prior to her surgery. At this point, we will start the patient on gentle IV hydration, clear liquid diet. Per the and the patient, Compazine with Ativan works best for her nausea and vomiting, so I will order that. Pain control in the form of morphine. Daily PPIs. 2. Clear liquid diet, activity as tolerated, heparin 5000 units subcu for DVT prophylaxis will be initiated. 3. Gastroenterological consultation was requested by the emergency room physician. We will follow up their recommendations. 4. Plan and management discussed with the patient and the at bedside. Additional management as the hospital course progresses, per the discretion of the daytime/rounding hospitalist. [id number]/[facility] #: [id number] MTDD
[2018-11-14] MEDS: LORazepam INJ* 2 MG/ML 1 ML VIAL IV PUSH PRN (21:10)
[2018-11-14] MEDS: PROCHLORPERAZINE INJ 5 MG/ML 2 ML VIAL IV PRN (21:12)
[2018-11-14] MEDS: Heparin VIAL(*) 5000 UNITS/ML VIAL (FIVE THOUSAND) SUBCUT SCH (21:13)
[2018-11-14] MEDS ORDERED: Metoclopramide IV* 5 MG/ML 2 ML VIAL IV ONE (23:40)
[2018-11-15] MEDS: LORazepam INJ* 2 MG/ML 1 ML VIAL IV PUSH PRN ×5 (01:19→21:17)
[2018-11-15] MEDS: PROCHLORPERAZINE INJ 5 MG/ML 2 ML VIAL IV PRN ×5 (01:21→21:19)
[2018-11-15] MEDS ORDERED: Ondansetron INJ* 2 MG/ML VIAL IV ONE (03:44)
[2018-11-15 03:45] LABS: Urine Appearance Cloudy; Urine Bilirubin Negative (Negative); Urine Blood Negative (Negative); Urine Color Yellow; Urine Glucose 1+(50 mg/dL) (Negative); Urine Ketones 1+ (Negative); Urine Nitrite Negative (Negative); Urine Protein Negative (Negative); Urine Specific Gravity 1.018 (1.010-1.030); Urine Urobilinogen Negative (Negative)
[2018-11-15] MEDS ORDERED: Ondansetron INJ* 2 MG/ML VIAL ONE (03:53)
[2018-11-15] MEDS: NS 0.9% 1000 ML** 1,000 ML IV SCH ×3 (05:34→15:48)
[2018-11-15] MEDS ORDERED: Pantoprazole IV* 40 MG IV SCH (09:00)
[2018-11-15] MEDS: Heparin VIAL(*) 5000 UNITS/ML VIAL (FIVE THOUSAND) SUBCUT SCH ×2 (09:37→21:21)
[2018-11-15] MEDS ORDERED: Scopolamine 1.5 mg* PATCH TRANSDERM ONE (10:00)
[2018-11-15] MEDS ORDERED: Magnesium Hydroxide LIQ* 30 ML UDC PO ONE (16:01)
[2018-11-15] MEDS ORDERED: Ondansetron ODT TAB* 4 MG PO PRN (16:03)
--- NOTE | 2018-11-15 16:07 | PN ---
Subjective Date of Service: 11/15/18 Interval History: No more nausea or emesis since this AM, ? related to scopalamine patch. Objective Active Medications: Heparin Sodium (Porcine) (Heparin Vial(*)) 5,000 units SUBCUT Q12HR [facility] Last Admin: 11/15/18 09:37 Dose: 5,000 units Sodium Chloride (Ns 0.9% 1000 Ml) 1,000 mls @ 75 mls/hr IV PER RATE [facility] Last Admin: 11/15/18 15:48 Dose: 75 mls/hr Lorazepam (Ativan Inj*) 1 mg IV PUSH Q4H PRN PRN Reason: nausea, give with compazine Last Admin: 11/15/18 15:46 Dose: 1 mg Morphine Sulfate (Morphine Inj ((Syringe))*) 2 mg IV Q4H PRN PRN Reason: SEVERE PAIN Pantoprazole Sodium (Protonix Iv*) 40 mg IV DAILY [facility] Last Admin: 11/15/18 09:36 Dose: 40 mg Prochlorperazine Edisylate (Compazine Inj*) 10 mg IV Q4HR PRN PRN Reason: Nausea/Vomiting Last Admin: 11/15/18 15:46 Dose: 10 mg Vital Signs - 8 hr 11/15/18 11/15/18 11/15/18 09:38 10:40 11:15 Temperature 99.3 F Pulse Rate 94 Respiratory 16 16 16 Rate Blood Pressure 103/59 (mmHg) O2 Sat by Pulse 97 Oximetry 11/15/18 11/15/18 15:46 15:50 Temperature 99.1 F Pulse Rate 75 Respiratory 16 16 Rate Blood Pressure 101/60 (mmHg) O2 Sat by Pulse 97 Oximetry Oxygen Devices in Use Now: None Appearance: Alert, partly up in bed. In fair spirits. Looks comfortable. Eyes: No Scleral Icterus Abdominal: NL Sounds; No Tenderness; No Distention, No Hepatosplenomegaly, - Extremities: No Edema, No Clubbing, Cyanosis, - Skin: No Rash or Ulcers, No Nodules or Sclerosis, - Neurological: Alert and Oriented x 3, NL Sensation Result Diagrams: 11/14/18 15:40 11/14/18 15:40 Assess/Plan/Problems-Billing Assessment: - Patient Problems (1) Nausea & vomiting Current Visit: No Status: Acute Code(s): R11.2 - NAUSEA WITH VOMITING, UNSPECIFIED SNOMED Code(s): 05546334 Comment: Cyclic vomiting not ruled out. Seems to benefit from combination of lorazepam and prochloperazine and scopalamine patch. I also am treating her constipation with MOM x [address] Vasques will be available 11/16. (2) Neuroendocrine cancer Current Visit: No Status: Chronic Code(s): C7A.8 - OTHER MALIGNANT NEUROENDOCRINE TUMORS SNOMED Code(s): 689532358972116 Comment: Resected 10/12/18. - Per reports, well differentiated, pT1 N1 - Dr. Barnett is primary surgeon at [place]
[2018-11-15] MEDS: Polyethylene Glycol 3350* 17 GM PACKET PO SCH (21:27)
[2018-11-16] MEDS: NS 0.9% 1000 ML** 1,000 ML IV SCH (01:48)
[2018-11-16] MEDS: LORazepam INJ* 2 MG/ML 1 ML VIAL IV PUSH PRN (05:21)
[2018-11-16] MEDS: PROCHLORPERAZINE INJ 5 MG/ML 2 ML VIAL IV PRN (05:23)
[2018-11-16 08:18] VITALS: BP 101/63
[2018-11-16] MEDS ORDERED: LORazepam TAB(*) 1 MG PO PRN (08:25)
[2018-11-16] MEDS: Heparin VIAL(*) 5000 UNITS/ML VIAL (FIVE THOUSAND) SUBCUT SCH (08:26)
[2018-11-16] MEDS ORDERED: Prochlorperazine TAB* 10 MG PO PRN (08:26)
[2018-11-16] MEDS: Polyethylene Glycol 3350* 17 GM PACKET PO SCH (08:26)
--- NOTE | 2018-11-16 08:42 | PN ---
Progress Note - Progress Note Date of Service: 11/16/18 Note: Time spent on discharge including exam of patient, discussion with pt, , CM, nurse, review of EMR and preparation of discharge documents and ISTOP is 40 minutes.
--- NOTE | 2018-11-16 08:42 | PN ---
"Progress Note - Progress Note Date of Service: 11/16/18 Note: This report was requested by: Jatinder Centeno | Reference #: [id number] Others' Prescriptions Patient Name: Florecita Carrasco Date: 1955 Address: [facility] [place] [address] Sex: Female Rx Written Rx Dispensed Drug Quantity Days Supply Prescriber Name 11/06/2018 11/06/2018 lorazepam 0.5 mg tablet 28 7 [facility] Patient Name: Florecita Dubose Date: 1955 Address: [place] [address] Sex: Female Rx Written Rx Dispensed Drug Quantity Days Supply Prescriber Name 10/25/2018 10/25/2018 oxycodone hcl 5 mg tablet 15 2 Ann Marie Bishop 10/17/2018 10/17/2018 oxycodone hcl 10 mg tablet 28 5 Carole Dgeroot 08/09/2018 08/11/2018 lorazepam 1 mg tablet 15 5 Ivis Ortiz"
--- NOTE | 2018-11-16 09:52 | DS ---
CC: Dr. Vasques * DISCHARGE SUMMARY: DATE OF ADMISSION: 11/14/18 DATE OF DISCHARGE: 11/16/18 HISTORY OF PRESENT ILLNESS/HOSPITAL COURSE: This 63-year-old woman was admitted with abdominal pain, nausea, and vomiting. The history is detailed in the admission note. She has had repeated episodes of this with prior hospitalizations. She was also found to have a neuroendocrine tumor of the pancreas and this was resected on 10/12/18. She has been back for followup there with complaints of nausea. It is really not clear that the neuroendocrine tumor had anything to do with her symptoms. She did have a pseudocyst, but it was smaller on repeat examination and the decision was made to forego stenting at this time. The patient was given multiple anti-nausea medications. It is possible that the combination of scopolamine patch, lorazepam, and prochlorperazine was most successful; her symptoms went away. Whether this was related to the treatment or simply the natural history of disease is not clear. It seems to me she would fit the criteria for cyclic vomiting syndrome. She was completely symptom -free for the last 24 hours of her hospitalization. I note that there were no major laboratory abnormalities. Her glucose was 158; it has been similarly high or higher in the past. FINAL DIAGNOSES: 1. Nausea and vomiting. 2. History of neuroendocrine pancreatic tumor, status post splenectomy and distal pancreas resection. FOLLOWUP: The patient will follow up with Dr. Vasques and Dr. Hernandez in [place]. DISCHARGE MEDICATIONS: 1. Promethazine 25 mg suppository every 4 hours p.r.n. 2. Lorazepam 1 mg p.o. every 4 hours p.r.n. 3. Ondansetron ODT 4 mg tablets 8 mg every 6 hours p.r.n. 4. Polyethylene glycol 17 g b.i.d. 5. Prochlorperazine 10 mg every 6 hours p.r.n. CONDITION ON DISCHARGE: Stable. DISPOSITION ON DISCHARGE: Discharged home. [id number]/[facility] #: [id number] MTDD
== END 2018-11-16 09:57 | disposition home or self-care (01) | DRG 249 ==
LOC: ED 15:08 → SSU 19:29
PROVIDERS: ADMIT Internal Medicine; ATTEND Internal Medicine
DX: R11.2 Nausea with vomiting, unspecified (principal); C7A.8 Other malignant neuroendocrine tumors; R10.9 Unspecified abdominal pain; Z79.891 Long term (current) use of opiate analgesic; Z79.899 Other long term (current) drug therapy; Z88.1 Allergy status to other antibiotic agents; Z88.5 Allergy status to narcotic agent; Z80.52 Family history of malignant neoplasm of bladder; Z82.69 Family history of other diseases of the musculoskeletal system and connective tissue; Z87.891 Personal history of nicotine dependence
CPT/HCPCS: 36415; 74019; 80053; 81003; 83605; 83690; 84484; 85025; 86140; 99285; A9270-GY; J0780; J1644; J2060; J2405; J2765

== ENCOUNTER 2020-08-08 08:31 | Observation (INO) ==
[2020-08-08] MEDS ORDERED: Ondansetron 4 mg VIAL 2 MG/ML 2 ml VIAL IV ONE (08:53)
[2020-08-08] MEDS ORDERED: NS 0.9% 1000 ml BAG 1,000 ML IV ONE (08:53)
[2020-08-08 09:46] LABS: ABS Basophils 0.1 10^3/ul (0-0.2); ABS Lymphocytes 1.4 10^3/ul (1.0-4.8); ABS Monocytes 1.1 10^3/ul (0-0.8); ABS Neutrophils 12.2 10^3/ul (1.5-7.7); Eosinophil % 0.2 %; Hematocrit 38 % (35-47); Hemoglobin 12.5 g/dL (12.0-16.0); Lymphocyte % 9.7 %; Mean Corpuscular HGB Conc 33 g/dL (31-36); Mean Corpuscular Hemoglobin 32 pg (27-31); Mean Corpuscular Volume 97 fL (80-97); Platelet Count 405 10^3/uL (150-450); Red Blood Count 3.85 10^6 /uL (3.70-4.87); Red Cell Distribution Width 12 % (10-15); White Blood Count 14.9 10^3/uL (3.5-10.8)
[2020-08-08 09:52] LABS: Rapid Strep Molecular Negative (Negative)
[2020-08-08 10:05] LABS: ALT 14 U/L (7-52); AST 15 U/L (13-39); Albumin 4.2 g/dL (3.2-5.2); Albumin/Globulin Ratio 1.2 (1-3); Alkaline Phosphatase 78 U/L (34-104); Anion Gap 7 mmol/L (2-11); BUN/Creatinine Ratio 11.3 (8-20); Blood Urea Nitrogen 9 mg/dL (6-24); C Reactive Protein 78.98 mg/L (<8.01); CO2 Carbon Dioxide 26 mmol/L (22-32); Chloride 101 mmol/L (101-111); EGFR African American 87.4 (>60); EGFR Non-African American 72.2 (>60); Globulin 3.4 g/dL (2-4); Glucose 165 mg/dL (70-100); Lipase < 10 U/L (11.0-82.0); Potassium 4.1 mmol/L (3.5-5.0); Sodium 134 mmol/L (135-145); Total Protein 7.6 g/dL (6.4-8.9)
[2020-08-08] MEDS ORDERED: Iohexol 300 (CONTRAST) 10 ML SDV IV ONE (11:01)
[2020-08-08] MEDS ORDERED: Clindamycin 600 MG/D5W BAG 600 MG/50 ML BAG IV ONE (12:40)
[2020-08-08] MEDS ORDERED: Albuterol HFA INHALER 8 gm MDI INH PRN (17:27)
[2020-08-09 07:12] LABS: ABS Eosinophils 0.2 10^3/ul (0-0.6); ABS Lymphocytes 2.8 10^3/ul (1.0-4.8); ABS Monocytes 1.3 10^3/ul (0-0.8); ABS Neutrophils 7.6 10^3/ul (1.5-7.7); Eosinophil % 1.4 %; Hematocrit 33 % (35-47); Hemoglobin 11.1 g/dL (12.0-16.0); Lymphocyte % 23.4 %; Mean Corpuscular HGB Conc 34 g/dL (31-36); Mean Corpuscular Hemoglobin 33 pg (27-31); Mean Corpuscular Volume 97 fL (80-97); Mean Platelet Volume 9.2 fL (7.4-10.4); Platelet Count 351 10^3/uL (150-450); Red Blood Count 3.37 10^6 /uL (3.70-4.87); Red Cell Distribution Width 12 % (10-15); White Blood Count 11.9 10^3/uL (3.5-10.8)
[2020-08-09 07:46] LABS: BUN/Creatinine Ratio 9.1 (8-20); Calcium 8.5 mg/dL (8.6-10.3); EGFR African American 91.3 (>60); EGFR Non-African American 75.5 (>60); Potassium 3.9 mmol/L (3.5-5.0)
[2020-08-09 08:16] VITALS: BP 102/72
== END 2020-08-09 10:30 | disposition home or self-care (01) ==
LOC: ED 08:31 → MED 08:31
PROVIDERS: ADMIT Student in an Organized Health Care Education/Training Program; ATTEND Student in an Organized Health Care Education/Training Program

== ENCOUNTER 2020-10-04 23:53 | Inpatient (IN) ==
[2020-10-05] MEDS ORDERED: NS 0.9% 1000 ml BAG 1,000 ML IV ONE ×3 (00:28→08:49)
[2020-10-05] MEDS ORDERED: Ondansetron 4 mg VIAL 2 MG/ML 2 ml VIAL IV ONE ×2 (00:29→08:26)
[2020-10-05] MEDS ORDERED: Pantoprazole VIAL 40 MG VIAL IV ONE (00:29)
[2020-10-05 00:45] LABS: INR 1.05 (0.82-1.09)
[2020-10-05 00:57] LABS: ALT 22 U/L (7-52); Albumin 4.7 g/dL (3.2-5.2); Albumin/Globulin Ratio 1.2 (1-3); Alkaline Phosphatase 76 U/L (34-104); Amylase 47 U/L (29-103); BUN/Creatinine Ratio 15.1 (8-20); Blood Urea Nitrogen 13 mg/dL (6-24); C Reactive Protein 14.01 mg/L (<8.01); CO2 Carbon Dioxide 22 mmol/L (22-32); Calcium 9.7 mg/dL (8.6-10.3); Chloride 97 mmol/L (101-111); EGFR African American 80.4 (>60); EGFR Non-African American 66.4 (>60); Globulin 3.9 g/dL (2-4); Glucose 180 mg/dL (70-100); Lipase 19 U/L (11.0-82.0); Sodium 131 mmol/L (135-145); Total Protein 8.6 g/dL (6.4-8.9)
[2020-10-05 01:00] LABS: Anion Gap 12 mmol/L (2-11)
[2020-10-05 01:06] LABS: Hematocrit 41 % (35-47); Mean Corpuscular HGB Conc 35 g/dL (31-36); Mean Corpuscular Hemoglobin 33 pg (27-31); Mean Corpuscular Volume 95 fL (80-97); Mean Platelet Volume 9.6 fL (7.4-10.4); Platelet Count 432 10^3/uL (150-450); Red Blood Count 4.29 10^6 /uL (3.70-4.87); Red Cell Distribution Width 12 % (10-15); White Blood Count 12.6 10^3/uL (3.5-10.8)
[2020-10-05 01:20] LABS: ABS Basophils 0.1 10^3/ul (0-0.2); ABS Lymphocytes 1.6 10^3/ul (1.0-4.8); ABS Monocytes 0.3 10^3/ul (0-0.8); Lymphocyte % 12.6 %
[2020-10-05] MEDS ORDERED: Metoclopramide 5 MG/ML VIAL (10 mg) IV ONE (01:40)
[2020-10-05] MEDS ORDERED: diPHENhydraMINE IV 50 MG/ML 1 ml VIAL (BENADRYL) IV ONE (01:40)
[2020-10-05 02:00] LABS: Potassium Redraw 4.4 mmol/L (3.5-5.0)
[2020-10-05] MEDS ORDERED: Prochlorperazine 5 mg/ml 2 ml VIAL (10 mg) IV PRN (04:45)
[2020-10-05] MEDS ORDERED: Prochlorperazine 5 mg/ml 2 ml VIAL (10 mg) ONE (04:46)
[2020-10-05 05:48] LABS: Urine Appearance Cloudy; Urine Bilirubin Negative (Negative); Urine Blood Negative (Negative); Urine Color Yellow; Urine Glucose 3+(>=500 mg/dL) (Negative); Urine Ketones Trace (Negative); Urine Nitrite Negative (Negative); Urine Protein Negative (Negative); Urine Specific Gravity 1.017 (1.010-1.030); Urine Urobilinogen Negative (Negative)
[2020-10-05] MEDS ORDERED: Iohexol 300 (CONTRAST) 10 ML SDV IV ONE (06:17)
[2020-10-05] MEDS ORDERED: Ciprofloxacin 400mg IVPREMIX 400 MG/200 ML BAG IVPB ONE (08:48)
[2020-10-05] MEDS ORDERED: metroNIDAZOLE IV 500 MG/100ML 500 MG/100 ML BAG IVPB ONE (08:49)
[2020-10-05] MEDS ORDERED: Al Hydrox/Mg Hydrox/Simet LIQ 30 ML UDC PO PRN (09:43)
[2020-10-05] MEDS ORDERED: NS 0.9% 1000 ml BAG 1,000 ML IV SCH (09:45)
[2020-10-05] MEDS ORDERED: Lorazepam PYXIS KEY PRN ×2 (10:02→11:09)
[2020-10-05] MEDS ORDERED: LORazepam 2 mg VIAL 1 ml IV PUSH ONE (10:02)
[2020-10-05] MEDS ORDERED: Lorazepam PYXIS KEY ONE (10:06)
[2020-10-05 11:34] LABS: Magnesium 1.9 mg/dL (1.9-2.7)
[2020-10-05] MEDS: Enoxaparin 40 MG/0.4 ML SYR SUBCUT SCH (13:21)
[2020-10-05] MEDS: LORazepam 2 mg VIAL 1 ml IV PUSH PRN ×2 (17:44→21:51)
[2020-10-05] MEDS: metroNIDAZOLE IV 500 MG/100ML 500 MG/100 ML BAG IVPB SCH (17:45)
[2020-10-05] MEDS ORDERED: cefTRIAXone 2 GM ADDV.VIAL 2 GM in NS 0.9% 100 ml BAG 100 ML IV SCH (21:00)
[2020-10-05] MEDS: Ondansetron 4 mg VIAL 2 MG/ML 2 ml VIAL IV PRN (21:51)
[2020-10-05] MEDS: Prochlorperazine 5 mg/ml 2 ml VIAL (10 mg) IV PRN (21:58)
[2020-10-06] MEDS: metroNIDAZOLE IV 500 MG/100ML 500 MG/100 ML BAG IVPB SCH ×2 (01:58→19:09)
[2020-10-06 05:42] LABS: ABS Basophils 0.1 10^3/ul (0-0.2); ABS Lymphocytes 2.8 10^3/ul (1.0-4.8); ABS Monocytes 1.2 10^3/ul (0-0.8); ABS Neutrophils 8.6 10^3/ul (1.5-7.7); Hematocrit 34 % (35-47); Hemoglobin 11.5 g/dL (12.0-16.0); Lymphocyte % 21.8 %; Mean Corpuscular HGB Conc 34 g/dL (31-36); Mean Corpuscular Hemoglobin 32 pg (27-31); Mean Corpuscular Volume 96 fL (80-97); Mean Platelet Volume 9.7 fL (7.4-10.4); Platelet Count 329 10^3/uL (150-450); Red Blood Count 3.53 10^6 /uL (3.70-4.87); Red Cell Distribution Width 13 % (10-15); White Blood Count 12.7 10^3/uL (3.5-10.8)
[2020-10-06 06:09] LABS: BUN/Creatinine Ratio 14.9 (8-20); C Reactive Protein 9.92 mg/L (<8.01); Calcium 7.7 mg/dL (8.6-10.3); EGFR African American 95.6 (>60); Potassium 3.3 mmol/L (3.5-5.0)
[2020-10-06 07:52] LABS: Magnesium 2.1 mg/dL (1.9-2.7)
[2020-10-06] MEDS ORDERED: Pantoprazole VIAL 40 MG VIAL IV SCH (09:00)
[2020-10-06] MEDS: Enoxaparin 40 MG/0.4 ML SYR SUBCUT SCH (09:05)
[2020-10-06] MEDS ORDERED: Sulfamethox/Trimethoprim DS TAB 800/160 mg PO SCH (10:00)
[2020-10-06] MEDS: LORazepam 2 mg VIAL 1 ml IV PUSH PRN ×2 (18:07→22:06)
[2020-10-06] MEDS: Prochlorperazine 5 mg/ml 2 ml VIAL (10 mg) IV PRN (18:59)
[2020-10-06] MEDS: Ondansetron 4 mg VIAL 2 MG/ML 2 ml VIAL IV PRN (21:07)
[2020-10-06] MEDS: cefTRIAXone 2 GM ADDV.VIAL 2 GM in NS 0.9% 100 ml BAG 100 ML IV SCH (21:07)
[2020-10-07] MEDS: metroNIDAZOLE IV 500 MG/100ML 500 MG/100 ML BAG IVPB SCH ×3 (02:11→17:34)
[2020-10-07] MEDS: LORazepam 2 mg VIAL 1 ml IV PUSH PRN ×5 (02:12→21:45)
[2020-10-07] MEDS: Prochlorperazine 5 mg/ml 2 ml VIAL (10 mg) IV PRN ×3 (06:06→20:06)
[2020-10-07 06:35] LABS: Hematocrit 35 % (35-47); Hemoglobin 12.3 g/dL (12.0-16.0); Mean Corpuscular HGB Conc 35 g/dL (31-36); Mean Corpuscular Hemoglobin 33 pg (27-31); Mean Corpuscular Volume 93 fL (80-97); Mean Platelet Volume 9.7 fL (7.4-10.4); Platelet Count 336 10^3/uL (150-450); Red Blood Count 3.77 10^6 /uL (3.70-4.87); Red Cell Distribution Width 13 % (10-15); White Blood Count 11.8 10^3/uL (3.5-10.8)
[2020-10-07 06:53] LABS: BUN/Creatinine Ratio 12.5 (8-20); C Reactive Protein 7.92 mg/L (<8.01); Calcium 7.6 mg/dL (8.6-10.3); EGFR African American 98.7 (>60); EGFR Non-African American 81.6 (>60); Potassium 3.2 mmol/L (3.5-5.0)
[2020-10-07 07:00] LABS: ABS Lymphocytes 2.3 10^3/ul (1.0-4.8); ABS Monocytes 0.9 10^3/ul (0-0.8); ABS Neutrophils 8.6 10^3/ul (1.5-7.7); Lymphocyte % 19.5 %
[2020-10-07] MEDS: NS 0.9% 1000 ml BAG 1,000 ML IV SCH (09:19)
[2020-10-07] MEDS: Multivitamins/Minerals TAB PO SCH (09:23)
[2020-10-07] MEDS: Enoxaparin 40 MG/0.4 ML SYR SUBCUT SCH (09:23)
[2020-10-07] MEDS: Ondansetron 4 mg VIAL 2 MG/ML 2 ml VIAL IV PRN (09:40)
[2020-10-07] MEDS: cefTRIAXone 2 GM ADDV.VIAL 2 GM in NS 0.9% 100 ml BAG 100 ML IV SCH (20:17)
[2020-10-08] MEDS: metroNIDAZOLE IV 500 MG/100ML 500 MG/100 ML BAG IVPB SCH ×3 (02:08→20:08)
[2020-10-08] MEDS: NS 0.9% 1000 ml BAG 1,000 ML IV SCH ×2 (02:10→12:10)
[2020-10-08] MEDS: Multivitamins/Minerals TAB PO SCH (09:18)
[2020-10-08] MEDS: KCL 20 MEQ/100 ML IVPREMIX 20 MEQ/100 ML BAG IV SCH ×2 (09:19→15:12)
[2020-10-08] MEDS: Enoxaparin 40 MG/0.4 ML SYR SUBCUT SCH (09:23)
[2020-10-08] MEDS ORDERED: KCL 20 MEQ/100 ML IVPREMIX 20 MEQ/100 ML BAG IV SCH (14:00)
[2020-10-08] MEDS: cefTRIAXone 2 GM ADDV.VIAL 2 GM in NS 0.9% 100 ml BAG 100 ML IV SCH (21:15)
[2020-10-09] MEDS: NS 0.9% 1000 ml BAG 1,000 ML IV SCH ×2 (01:52→15:19)
[2020-10-09] MEDS: metroNIDAZOLE IV 500 MG/100ML 500 MG/100 ML BAG IVPB SCH ×2 (03:17→09:40)
[2020-10-09 05:59] LABS: Calcium 7.4 mg/dL (8.6-10.3); EGFR African American 101.9 (>60); EGFR Non-African American 84.2 (>60); Potassium 3.2 mmol/L (3.5-5.0)
[2020-10-09] MEDS: Multivitamins/Minerals TAB PO SCH (09:40)
[2020-10-09] MEDS: Enoxaparin 40 MG/0.4 ML SYR SUBCUT SCH (09:41)
[2020-10-09] MEDS ORDERED: KCL 20 MEQ/100 ML IVPREMIX 20 MEQ/100 ML BAG IV SCH (10:00)
[2020-10-09] MEDS: Potassium Chloride LIQUID 20 MEQ/15 ML LIQUID PO SCH ×2 (10:44→15:20)
[2020-10-09] MEDS: Ondansetron 4 mg VIAL 2 MG/ML 2 ml VIAL IV PRN (13:38)
[2020-10-09] MEDS: Sulfamethox/Trimethoprim DS TAB 800/160 mg PO SCH (20:52)
[2020-10-10 05:09] LABS: ABS Eosinophils 0.4 10^3/ul (0-0.6); ABS Lymphocytes 3.5 10^3/ul (1.0-4.8); ABS Monocytes 0.7 10^3/ul (0-0.8); ABS Neutrophils 3.4 10^3/ul (1.5-7.7); Eosinophil % 4.9 %; Hematocrit 33 % (35-47); Hemoglobin 11.6 g/dL (12.0-16.0); Lymphocyte % 43.6 %; Mean Corpuscular HGB Conc 35 g/dL (31-36); Mean Corpuscular Hemoglobin 33 pg (27-31); Mean Corpuscular Volume 94 fL (80-97); Mean Platelet Volume 9.1 fL (7.4-10.4); Platelet Count 357 10^3/uL (150-450); Red Blood Count 3.54 10^6 /uL (3.70-4.87); Red Cell Distribution Width 13 % (10-15)
[2020-10-10 05:25] LABS: BUN/Creatinine Ratio 7.4 (8-20); EGFR African American 86.1 (>60); EGFR Non-African American 71.2 (>60)
[2020-10-10 05:35] LABS: Potassium 3.9 mmol/L (3.5-5.0)
[2020-10-10] MEDS: Multivitamins/Minerals TAB PO SCH (09:20)
[2020-10-10] MEDS: Sulfamethox/Trimethoprim DS TAB 800/160 mg PO SCH (09:21)
[2020-10-10] MEDS: Enoxaparin 40 MG/0.4 ML SYR SUBCUT SCH (09:21)
[2020-10-10 11:28] VITALS: BP 106/56
[2020-10-10] MEDS ORDERED: Scopolamine PATCH Remove NOTE PATCH OFF SCH (13:00)
== END 2020-10-10 14:30 | disposition home or self-care (01) | DRG 244 ==
LOC: SSU 23:53 → ED 23:53 → MERGE 10-05 10:55 → SSU 10-05 11:52
PROVIDERS: ADMIT Pediatrics; ATTEND Internal Medicine

== ENCOUNTER 2020-10-12 05:21 | Observation (INO) ==
[2020-10-12] MEDS ORDERED: NS 0.9% 1000 ml BAG 1,000 ML IV ONE (05:53)
[2020-10-12] MEDS ORDERED: LORazepam 2 mg VIAL 1 ml IV PUSH ONE ×2 (05:54→08:29)
[2020-10-12] MEDS ORDERED: Lorazepam PYXIS KEY PRN ×3 (05:54→16:30)
[2020-10-12] MEDS ORDERED: Prochlorperazine 5 mg/ml 2 ml VIAL (10 mg) IV ONE (05:55)
[2020-10-12 06:36] LABS: ABS Basophils 0.1 10^3/ul (0-0.2); ABS Lymphocytes 0.7 10^3/ul (1.0-4.8); ABS Monocytes 0.2 10^3/ul (0-0.8); ABS Neutrophils 11.9 10^3/ul (1.5-7.7); Hematocrit 38 % (35-47); Hemoglobin 13.2 g/dL (12.0-16.0); Lymphocyte % 5.6 %; Mean Corpuscular HGB Conc 35 g/dL (31-36); Mean Corpuscular Hemoglobin 33 pg (27-31); Mean Corpuscular Volume 93 fL (80-97); Mean Platelet Volume 9.7 fL (7.4-10.4); Platelet Count 462 10^3/uL (150-450); Red Blood Count 4.04 10^6 /uL (3.70-4.87); Red Cell Distribution Width 13 % (10-15); White Blood Count 12.9 10^3/uL (3.5-10.8)
[2020-10-12 07:10] LABS: ALT 24 U/L (7-52); Albumin 4.2 g/dL (3.2-5.2); Albumin/Globulin Ratio 1.3 (1-3); Alkaline Phosphatase 58 U/L (34-104); Blood Urea Nitrogen 8 mg/dL (6-24); C Reactive Protein 12.79 mg/L (<8.01); CO2 Carbon Dioxide 23 mmol/L (22-32); Calcium 8.9 mg/dL (8.6-10.3); Chloride 98 mmol/L (101-111); EGFR African American 77.3 (>60); EGFR Non-African American 63.9 (>60); Globulin 3.3 g/dL (2-4); Glucose 196 mg/dL (70-100); Lipase 14 U/L (11.0-82.0); Magnesium 1.8 mg/dL (1.9-2.7); Sodium 134 mmol/L (135-145); Total Protein 7.5 g/dL (6.4-8.9)
[2020-10-12 07:30] LABS: Anion Gap 13 mmol/L (2-11)
[2020-10-12] MEDS ORDERED: Metoclopramide 5 MG/ML VIAL (10 mg) IV SLOW PU ONE (08:29)
[2020-10-12 09:18] LABS: Urine Appearance Cloudy; Urine Bilirubin Negative (Negative); Urine Blood Negative (Negative); Urine Color Amber; Urine Glucose 2+(150 mg/dL) (Negative); Urine Ketones 1+ (Negative); Urine Nitrite Negative (Negative); Urine Protein Negative (Negative); Urine Specific Gravity 1.013 (1.010-1.030); Urine Urobilinogen Negative (Negative)
[2020-10-12] MEDS ORDERED: Magnesium Sulfate 2 gm BAG 2 GM/50 ML BAG IVPB ONE (11:43)
[2020-10-12] MEDS ORDERED: Ondansetron 4 mg VIAL 2 MG/ML 2 ml VIAL IV PRN ×2 (12:08→16:30)
[2020-10-12] MEDS ORDERED: Metoclopramide 5 MG/ML VIAL (10 mg) IV PRN (12:12)
[2020-10-12] MEDS: NS 0.9% 1000 ml BAG 1,000 ML IV SCH ×2 (13:13→23:51)
[2020-10-12] MEDS: Enoxaparin 40 MG/0.4 ML SYR SUBCUT SCH (13:15)
[2020-10-12 13:25] LABS: Potassium Redraw 3.7 mmol/L (3.5-5.0)
[2020-10-12] MEDS ORDERED: LORazepam 2 mg VIAL 1 ml IV PUSH PRN (16:30)
[2020-10-12] MEDS ORDERED: Prochlorperazine 5 mg/ml 2 ml VIAL (10 mg) IV PRN (16:30)
[2020-10-13 05:16] LABS: Hematocrit 33 % (35-47); Hemoglobin 11.5 g/dL (12.0-16.0); Mean Corpuscular HGB Conc 35 g/dL (31-36); Mean Corpuscular Hemoglobin 33 pg (27-31); Mean Corpuscular Volume 94 fL (80-97); Mean Platelet Volume 9.4 fL (7.4-10.4); Platelet Count 421 10^3/uL (150-450); Red Blood Count 3.52 10^6 /uL (3.70-4.87); Red Cell Distribution Width 13 % (10-15); White Blood Count 8.3 10^3/uL (3.5-10.8)
[2020-10-13 05:18] LABS: ABS Basophils 0.1 10^3/ul (0-0.2); ABS Eosinophils 0.1 10^3/ul (0-0.6); ABS Monocytes 0.9 10^3/ul (0-0.8); ABS Neutrophils 4.2 10^3/ul (1.5-7.7); Eosinophil % 1.4 %; Lymphocyte % 36.3 %
[2020-10-13 05:29] LABS: BUN/Creatinine Ratio 8.9 (8-20); Calcium 7.8 mg/dL (8.6-10.3); EGFR African American 88.7 (>60); EGFR Non-African American 73.3 (>60); Magnesium 2.3 mg/dL (1.9-2.7); Potassium 3.4 mmol/L (3.5-5.0)
[2020-10-13] MEDS ORDERED: KCL 20 MEQ/100 ML IVPREMIX 20 MEQ/100 ML BAG IV ONE (07:53)
[2020-10-13] MEDS: NS 0.9% 1000 ml BAG 1,000 ML IV SCH (08:41)
[2020-10-13] MEDS: Enoxaparin 40 MG/0.4 ML SYR SUBCUT SCH (12:51)
[2020-10-13] MEDS ORDERED: Senna TAB 8.6 mg TAB PO PRN (20:52)
[2020-10-13] MEDS ORDERED: Polyethylene Glycol 3350 17 GM PACKET PO PRN (20:52)
[2020-10-13] MEDS ORDERED: Magnesium Hydroxide LIQ 30 ML UDC PO PRN (20:52)
[2020-10-13] MEDS: Magnesium Hydroxide LIQ 30 ML UDC PO SCH (21:14)
[2020-10-14 07:31] VITALS: BP 114/65
[2020-10-14] MEDS: Magnesium Hydroxide LIQ 30 ML UDC PO SCH (08:26)
== END 2020-10-14 10:25 | disposition home or self-care (01) ==
LOC: MEDTELE 05:21 → ED 05:21 → SSU 12:39
PROVIDERS: ADMIT Internal Medicine; ATTEND Internal Medicine

== ENCOUNTER 2021-03-21 15:55 | Inpatient (IN) ==
[2021-03-21] MEDS ORDERED: LORazepam 2 mg VIAL 1 ml IV PUSH ONE (18:58)
[2021-03-21] MEDS ORDERED: Lorazepam PYXIS KEY PRN ×2 (18:58→23:51)
[2021-03-21] MEDS: NS 0.9% 1000 ml BAG 2,000 ML IV ONE ×2 (19:52→19:53)
[2021-03-21] MEDS: Prochlorperazine 5 mg/ml 2 ml VIAL (10 mg) IV PRN (19:52)
[2021-03-21 20:11] LABS: ABS Basophils 0.1 10^3/ul (0-0.2); ABS Lymphocytes 0.8 10^3/ul (1.0-4.8); ABS Monocytes 0.3 10^3/ul (0-0.8); ABS Neutrophils 12.2 10^3/ul (1.5-7.7); Hematocrit 38 % (35-47); Hemoglobin 13.7 g/dL (12.0-16.0); Mean Corpuscular HGB Conc 36 g/dL (31-36); Mean Corpuscular Hemoglobin 34 pg (27-31); Mean Corpuscular Volume 96 fL (80-97); Mean Platelet Volume 8.8 fL (7.4-10.4); Platelet Count 370 10^3/uL (150-450); Red Blood Count 4.02 10^6 /uL (3.70-4.87); Red Cell Distribution Width 13 % (10-15); White Blood Count 13.3 10^3/uL (3.5-10.8)
[2021-03-21 20:44] LABS: ALT 21 U/L (7-52); AST 22 U/L (13-39); Albumin 4.3 g/dL (3.2-5.2); Albumin/Globulin Ratio 1.4 (1-3); Alkaline Phosphatase 71 U/L (35-149); Anion Gap 10 mmol/L (2-11); Blood Urea Nitrogen 14 mg/dL (6-24); CO2 Carbon Dioxide 24 mmol/L (22-32); Calcium 9.3 mg/dL (8.6-10.3); Chloride 102 mmol/L (101-111); EGFR African American 78.3 (>60); EGFR Non-African American 64.7 (>60); Globulin 3.1 g/dL (2-4); Glucose 185 mg/dL (70-100); Lipase < 10 U/L (11.0-82.0); Magnesium 1.9 mg/dL (1.9-2.7); Potassium 3.8 mmol/L (3.5-5.0); Sodium 136 mmol/L (135-145); Total Protein 7.4 g/dL (6.4-8.9)
[2021-03-21] MEDS ORDERED: Droperidol 5 MG/2 ML 2 ML VIAL IV ONE (22:39)
[2021-03-22] MEDS: LORazepam 2 mg VIAL 1 ml IV PUSH PRN (01:18)
[2021-03-22] MEDS: Prochlorperazine 5 mg/ml 2 ml VIAL (10 mg) IV PRN ×2 (01:18→08:18)
[2021-03-22] MEDS: NS 0.9% 1000 ml BAG 1,000 ML IV SCH ×2 (03:14→21:02)
[2021-03-22 05:36] LABS: Calcium 7.9 mg/dL (8.6-10.3); EGFR African American 91.3 (>60); EGFR Non-African American 75.5 (>60); Potassium 3.6 mmol/L (3.5-5.0)
[2021-03-22] MEDS: Pantoprazole VIAL 40 MG VIAL IV SCH (08:12)
[2021-03-22] MEDS: Neomycin/Polym/Bacit TOP OINT 15 GM TOPICAL SCH ×2 (08:12→19:05)
[2021-03-22] MEDS: Enoxaparin 40 MG/0.4 ML SYR SUBCUT SCH (08:12)
[2021-03-23] MEDS: NS 0.9% 1000 ml BAG 1,000 ML IV SCH ×2 (05:21→14:13)
[2021-03-23 06:38] LABS: ABS Basophils 0.1 10^3/ul (0-0.2); ABS Eosinophils 0.1 10^3/ul (0-0.6); ABS Lymphocytes 4.1 10^3/ul (1.0-4.8); ABS Monocytes 0.7 10^3/ul (0-0.8); ABS Neutrophils 4.3 10^3/ul (1.5-7.7); Eosinophil % 1.4 %; Hematocrit 31 % (35-47); Hemoglobin 10.5 g/dL (12.0-16.0); Mean Corpuscular HGB Conc 34 g/dL (31-36); Mean Corpuscular Hemoglobin 33 pg (27-31); Mean Corpuscular Volume 97 fL (80-97); Mean Platelet Volume 8.7 fL (7.4-10.4); Platelet Count 269 10^3/uL (150-450); Red Blood Count 3.15 10^6 /uL (3.70-4.87); Red Cell Distribution Width 13 % (10-15); White Blood Count 9.3 10^3/uL (3.5-10.8)
[2021-03-23 06:53] LABS: Calcium 7.7 mg/dL (8.6-10.3); EGFR African American 95.6 (>60); Magnesium 2.1 mg/dL (1.9-2.7); Potassium 3.2 mmol/L (3.5-5.0)
[2021-03-23] MEDS: Neomycin/Polym/Bacit TOP OINT 15 GM TOPICAL SCH ×2 (08:28→19:13)
[2021-03-23] MEDS ORDERED: KCL 20 MEQ/100 ML IVPREMIX 20 MEQ/100 ML BAG IV ONE (08:28)
[2021-03-23] MEDS: Pantoprazole VIAL 40 MG VIAL IV SCH (08:28)
[2021-03-23] MEDS: Enoxaparin 40 MG/0.4 ML SYR SUBCUT SCH (08:28)
[2021-03-23] MEDS: LORazepam 2 mg VIAL 1 ml IV PUSH PRN ×3 (11:58→21:44)
[2021-03-23] MEDS: Prochlorperazine 5 mg/ml 2 ml VIAL (10 mg) IV PRN ×3 (12:35→21:43)
[2021-03-23] MEDS ORDERED: Ondansetron 4 mg VIAL 2 MG/ML 2 ml VIAL IV PRN (14:33)
[2021-03-24] MEDS: NS 0.9% 1000 ml BAG 1,000 ML IV SCH ×2 (00:14→12:02)
[2021-03-24] MEDS: Prochlorperazine 5 mg/ml 2 ml VIAL (10 mg) IV PRN (04:10)
[2021-03-24 05:20] LABS: ABS Basophils 0.1 10^3/ul (0-0.2); ABS Eosinophils 0.1 10^3/ul (0-0.6); ABS Neutrophils 8.2 10^3/ul (1.5-7.7); Eosinophil % 0.7 %; Hematocrit 33 % (35-47); Hemoglobin 11.6 g/dL (12.0-16.0); Lymphocyte % 17.5 %; Mean Corpuscular HGB Conc 35 g/dL (31-36); Mean Corpuscular Hemoglobin 33 pg (27-31); Mean Corpuscular Volume 96 fL (80-97); Nucleated Red Blood Cells % 0.1; Red Cell Distribution Width 13 % (10-15); White Blood Count 11.4 10^3/uL (3.5-10.8)
[2021-03-24 05:29] LABS: Calcium 7.7 mg/dL (8.6-10.3); EGFR African American 100.3 (>60); EGFR Non-African American 82.9 (>60); Magnesium 1.8 mg/dL (1.9-2.7); Potassium 3.3 mmol/L (3.5-5.0)
[2021-03-24 05:36] LABS: Platelet Count Platelets clumped. 10^3/uL (150-450)
[2021-03-24] MEDS ORDERED: Magnesium Sulfate 2 gm BAG 2 GM/50 ML BAG IVPB ONE (05:41)
[2021-03-24] MEDS: KCL 20 MEQ/100 ML IVPREMIX 20 MEQ/100 ML BAG IV SCH ×2 (08:22→12:02)
[2021-03-24] MEDS: Enoxaparin 40 MG/0.4 ML SYR SUBCUT SCH (08:23)
[2021-03-24] MEDS: Pantoprazole VIAL 40 MG VIAL IV SCH (08:23)
[2021-03-24 08:46] LABS: Mean Platelet Volume 9.5 fL (7.4-10.4); Platelet Count 292 10^3/uL (150-450)
[2021-03-24] MEDS: Neomycin/Polym/Bacit TOP OINT 15 GM TOPICAL SCH ×2 (11:00→21:19)
[2021-03-25 05:40] LABS: ABS Basophils 0.1 10^3/ul (0-0.2); ABS Eosinophils 0.2 10^3/ul (0-0.6); ABS Lymphocytes 3.5 10^3/ul (1.0-4.8); ABS Monocytes 0.9 10^3/ul (0-0.8); ABS Neutrophils 2.7 10^3/ul (1.5-7.7); Eosinophil % 2.6 %; Hematocrit 33 % (35-47); Hemoglobin 11.6 g/dL (12.0-16.0); Lymphocyte % 47.7 %; Mean Corpuscular HGB Conc 36 g/dL (31-36); Mean Corpuscular Hemoglobin 34 pg (27-31); Mean Corpuscular Volume 95 fL (80-97); Platelet Count 285 10^3/uL (150-450); Red Blood Count 3.43 10^6 /uL (3.70-4.87); Red Cell Distribution Width 13 % (10-15); White Blood Count 7.3 10^3/uL (3.5-10.8)
[2021-03-25 05:59] LABS: EGFR African American 103.6 (>60); EGFR Non-African American 85.7 (>60); Magnesium 2.1 mg/dL (1.9-2.7); Potassium 3.5 mmol/L (3.5-5.0)
[2021-03-25] MEDS: Enoxaparin 40 MG/0.4 ML SYR SUBCUT SCH (08:15)
[2021-03-25] MEDS: Pantoprazole VIAL 40 MG VIAL IV SCH (08:16)
[2021-03-25] MEDS: Neomycin/Polym/Bacit TOP OINT 15 GM TOPICAL SCH (08:16)
[2021-03-25 09:46] VITALS: BP 121/85
== END 2021-03-25 12:30 | disposition home or self-care (01) ==
LOC: ED 15:55 → MED 23:48
PROVIDERS: ADMIT Student in an Organized Health Care Education/Training Program; ATTEND Hospitalist